=== PATIENT | female | born 1950 | race Caucasian/White ===

== ENCOUNTER 2018-10-15 13:41 | Outpatient (CLI) | payer MEDICARE, SELFPAY ==
[2018-10-15 14:44] LABS: Anion Gap 12.1 mmol/L (3-11); BUN 17 mg/dL (7-18); CO2 22.9 mmol/L (21.0-32.0); CREATININE 0.95 mg/dL (0.55-1.02); Calcium 9.3 mg/dL (8.5-10.1); Chloride 105 mmol/L (98-107); Cholesterol 151 mg/dL (50-200); Glucose 142 mg/dL (70-100); HDL Cholesterol 51 mg/dL (40-60); LDL CHOLESTEROL 61 mg/dL (<100); Potassium 4.5 mmol/L (3.5-5.1); Sodium 140 mmol/L (136-145); Triglyceride 229 mg/dL (30-150)
== END 2018-10-15 14:01 ==
PROVIDERS: PCP Internal Medicine; Visit Provider Internal Medicine
DX: I10 Essential (primary) hypertension (principal); E78.00 Pure hypercholesterolemia, unspecified
CPT/HCPCS: 36415; 80048; 80061; 83721

== ENCOUNTER 2018-10-30 01:50 | Outpatient (CLI) | payer MEDICARE, SELFPAY ==
--- NOTE | 2018-10-30 12:40 | DIABASSESS_ITS ---
DESCRIPTION: Sun Casas presents for Medical Nutrition Therapy for diabetes and prevention of progression of diabetes. Sun is confused about her diagnosis especially since she has just worked hard to lose weight. Sun states she has lost 35 pounds over the past year by decreasing portions and eating better. She has oatmeal and banana or CIB for breakfast, lean cuisine for lunch; chicken, sweet potato and green beans last evening for supper. She dirnks whole milk with meals. She snacks on string cheese. She notes allergy of raw fruit. Sun has spinal stenosis with pain she describes as high at times. She has participated with [employer] in the past and continues to do those exercises regularly. Acknowledges PTSD with nightmares which affect her ability to sleep and financial stressors as well. ASSESSMENT/INTERVENTION: Explained diagnostic criteria for diabetes. She does have one fasting blood sugar above 126; no A1c available. Reviewed diabetes food guide focused on carbohydrate distribution, label reading, total carbs and significance of 'added' sugar on label. Discussed food resources and she is interested in [employer]. Sun feels she does all the movement she needs to do with chair exercises as well as activities of daily living. Sun does not monitor her blood sugars at this time. Performed random blood sugar of 93 several hours after breakfast. A1c is explained and she will look for this lab result. Sun feels she has good support for her stressors in her PCP and she will begin counseling. Discussed impact of stress of blood sugar. Sun is engaged in the conversation and feels she can manage this diagnosis in a preventative way at this time. PLAN: Sun will: Limit carbohydrate to 30 grams per meal and look for added sugar Participate in [employer] Look for A1c test and diagnosis clarification
== END 2018-10-30 02:10 ==
PROVIDERS: PCP Internal Medicine; Visit Provider Dietitian, Registered
DX: E11.9 Type 2 diabetes mellitus without complications (principal); Z71.3 Dietary counseling and surveillance
CPT/HCPCS: 97802

== ENCOUNTER 2019-06-18 11:22 | Outpatient (CLI) | payer MEDICARE, SELFPAY ==
--- NOTE | 2019-06-18 11:00 | DI.RAD_ITS ---
EXAM: XR KNEE RT 3V AP,LAT,CHEKO INDICATION: Acute onset generalized knee pain, M25.569. COMPARISON: No exams were available for comparison TECHNIQUE: 2D digital imaging was performed. FINDINGS: No acute fracture or dislocation is present. The soft tissues are unremarkable. IMPRESSION: No acute abnormality.
== END 2019-06-18 11:42 ==
PROVIDERS: PCP Internal Medicine; Visit Provider Family Medicine
DX: M25.561 Pain in right knee (principal)
CPT/HCPCS: 73562

== ENCOUNTER 2019-06-30 08:27 | Outpatient (CLI) | payer MEDICARE, SELFPAY ==
--- NOTE | 2019-06-30 08:00 | DI.MRI_ITS ---
EXAM: MR LUMBAR SPINE WO CLINICAL HISTORY: acute right lumbar radiculopathy,M54.16. TECHNIQUE: Multiplanar multisequence MRI was performed. COMPARISON: MRI - LUMBAR SPINE WO CONTRAST from 12/24/2008 RENAL COLIC WO CONTRAST from 07/28/2014 FINDINGS: There is mild concentric disc bulging at T10-11, T11-12 and T12-L1. Mild disc bulging is seen ecce ntric toward the left at L1-2. There is no significant neural foraminal narrowing or central canal s tenosis. At L2-3, there is [id number] loss of disc height and mild concentric disc bulging. There is no significant central canal stenosis or neural foraminal narrowing. At L3-4, there is mild concentric disc bulging. There are mild facet degenerative changes and mild li gamentous hypertrophy causing mild bilateral neural foraminal narrowing. A laminectomy defect is seen at L4-5. There is mild, grade 1 spondylolisthesis at L4-5. There is mi ld loss of disc height and mild concentric disc bulging. There is severe bilateral neural foraminal narrowing but no significant central canal stenosis. At L5-S1, the disc shows normal height and hydration. There are facet degenerative changes and some ligamentous hypertrophy but no significant neural foraminal narrowing. There is mild central canal s tenosis. The conus medullaris appears normal. The aorta is normal in diameter. IMPRESSION: Severe bilateral neural foraminal narrowing at L4-5 secondary to spondylolisthesis and degenerative changes. Mild central canal stenosis at L5-S1.
== END 2019-06-30 08:47 ==
PROVIDERS: PCP Internal Medicine; Visit Provider Internal Medicine
DX: M54.16 Radiculopathy, lumbar region (principal); M51.17 Intervertebral disc disorders with radiculopathy, lumbosacral region; M43.17 Spondylolisthesis, lumbosacral region; M48.07 Spinal stenosis, lumbosacral region
CPT/HCPCS: 72148

== ENCOUNTER 2020-02-17 12:38 | Outpatient (REF) | payer MEDICARE, SELFPAY ==
[2020-02-17 19:28] LABS: *AMPHETAMINES SCREEN URINE Negative (Negative); *BARBITURATES SCREEN URINE Negative (Negative); *BENZODIAZEPINES SCREEN URINE Negative (Negative); Cannabinoids THC POSITIVE (Negative); Cocaine Screen,Urine Negative (Negative); METHADONE URINE SCREEN Negative (Negative); OPIATES URINE SCREEN POSITIVE (Negative)
[2020-02-17 19:31] LABS: Tricyclic Antidepressants POSITIVE (Negative)
[2020-02-24 10:12] LABS: Codeine Negative ng/mL (Cutoff: 25); Dihydrocodeine 4712 ng/mL (Cutoff: 25); Hydrocodone 17790 ng/mL (Cutoff: 25); Hydromorphone 1121 ng/mL (Cutoff: 25); Morphine Negative ng/mL (Cutoff: 25); Naloxone Negative ng/mL (Cutoff: 25); Norhydrocodone 13543 ng/mL (Cutoff: 25); Noroxycodone Negative ng/mL (Cutoff: 25); Noroxymorphone Negative ng/mL (Cutoff: 25); Opiates Interpretation Positive.
== END 2020-02-17 12:58 ==
LOC: LBO 12:38
PROVIDERS: PCP Internal Medicine; Visit Provider Internal Medicine
DX: G89.29 Other chronic pain (principal); Z79.891 Long term (current) use of opiate analgesic
CPT/HCPCS: 80307; 80361

== ENCOUNTER 2020-05-21 15:44 | Emergency (ER) | payer MEDICARE, SELFPAY ==
[2020-05-21 15:46] VITALS: BP 115/59; PULSE 63; RESP 17; TEMP 36.7; O2SAT 95
--- NOTE | 2020-05-21 15:58 | ED.GENADUL_ITS ---
Discharge Plan Disposition Patient Disposition: [facility] [place] Condition: Serious Discharge Details Clinical Impression: Bilateral leg weakness Primary Care Provider: Sully Cosme ED Provider: Veronica Robison [place] Meds and New Rx's Prescriptions: No Action hydrocodone-acetaminophen 5-325 mg tablet See Rx Instructions PO .COMPLEX MDD 10mg Qty: 56 RF: 0 hydrocodone-acetaminophen 5-325 mg tablet See Rx Instructions PO .COMPLEX MDD 10mg Qty: 56 RF: 0 hydrocodone-acetaminophen 5-325 mg tablet See Rx Instructions PO .COMPLEX MDD 10mg Qty: 56 RF: 0 Shingrix (PF) 50 mcg/0.5 mL suspension for reconstitution 0.5 ml IM ONCE Qty: 1 RF: 1 metoprolol succinate 25 mg tablet extended release 24 hr 25 mg PO DAILY Qty: 90 RF: 1 zolpidem [Ambien] 10 MG tablet 0 mg PO hs as directed Qty: 30 RF: 3 lorazepam 0.5 mg tablet 0.5 mg PO BID PRNRF: 0 atorvastatin 40 mg tablet 40 mg PO DAILY Qty: 90 RF: 3 venlafaxine 150 mg capsule,extended release 24hr 150 mg PO DAILY RF: 0 venlafaxine [Effexor XR] 37.5 mg capsule,extended release 24hr 37.5 mg PO DAILY RF: 0 gabapentin 600 mg tablet 1,200 mg PO HS RF: 0 gabapentin 400 mg capsule 400 mg PO TID PRN (Reason: lumbar radiculopathy) Qty: 90 RF: 3 acetaminophen [Tylenol] 325 MG tablet 325 mg PO TID RF: 0 Discharge Data Discharge Date/Time-TO BE ENTERED AT DEPARTURE: 05/21/20 20:00 Medical Decision Making Patient is a 69-year-old female presenting today with chief complaint of weakness. She reports that she has chronic issues with her back, reports recent MRI, which typically manifests as pain in the lumbar spine and can radiate into her bilateral lower extremities. She reports the pain has progressively been improving recently. She did recently take herself off of gabapentin as the pain has improved. She states that today she took Tylenol and happened Vicodin this morning. She reports that typically she is able to perform exercises each day to help with her back pain but that today she noted himself to be more weak and fatigued. States that subsequently she fell multiple times. Describes her left leg giving out and describes both of her legs feeling like Jell-O. She reports that she fell but did not strike her head or injure herself elsewhere. Is able to crawl to her bed when she attempted to get up. She reports that she had weakness in her legs as well as her upper extremities to a lesser extent. She denies any recent illness. States that she did have a headache a few days ago but this quickly resolved with intake of food. No headache currently. Denies any chest pain. No shortness of breath. No change in bowel or bladder habits. Denies any incontinence. On exam, patient is resting comfortably, appears nontoxic and in no acute distress. She is able to lift her BLE but does have fasciculations when doing so and appears quite weak. Normal sharp dull testing the lower extremities. She has no saddle paresthesias. She has no Babinski reflex. Reflexes intact at the knee. She also appears systemically fatigued and is moving her upper extremities minimally. However, she does not report that these feel overly weak. When prompted, patient is able to move her BUE equally without notable weakness. She is reporting that she feels fatigued and has been napping more frequently than she typically does. She needs to urinate. Patient denies any recent illness but her difference in the reflexes in her feet to her knees does have a concern for potential Guyon Antonio?. Also considered worsening spinal stenosis. Reviewed MR dated 1 year ago. Also considered more of a systemic cause such as thyroid dysfunction, electrolyte abnormality. She does not have evidence or history to suggest abscess or acute bacterial infection. Patient attempt to stand to go to a bedside commode. Feet slipped out monitor her. Nursing staff was with her and she slowly went to the ground. She did not suffer any injuries. She is not endorsing any new pain. We will keep the patient in bed safe. Post void residual 90 cc. Labs reviewed without any significant abnormality. Performed rectal exam patient has no rectal tone, she is unable to bear down. Concern at this time for cauda equina. While initially she was denying any incontinence, she is now reporting about her stool falls out. She states that incontence of stool has been worsening with over the past few days Reached out to [facility], sounds that they are unable to accept secondary to beds. Th wes will check. I do not want to wait for transfer, will consult with [facility]. Spoke with neurosurgery who advised MRI. Consulted with ED provider who accepts the patient in transfer. Discussed plan with the patient. She has been to [facility] historically and is agreeable to this transfer. Patient is comfortable. She was givne her nightly pain medication, 1/2 vicodin and tyleonol HPI General Mode of arrival: EMS . Date/Time Provider Initiated Documentation: 05/21/20 15:58 . Limitations to Documentation: no limitations . Information obtained by: patient, EMS, RN notes reviewed and old records reviewed . History of Present Illness 69 year old F presents to the emergency department with the chief complaint of BLE weakness, described as moderate, Quality is described as aching (chronic backpain, no flair), and is localized to the left, right and lower extremity. Patient reports no radiation. Patient started experiencing this hour(s) (noticed weakness this AM) and it has been constant. Immobilization improves symptom(s), Movement worsens symptoms . Patient notes weakness (generalized, worse in BLE. Falling frequently associated with weakness); denies confusion, chest pain, cough, diaphoresis, fever/chills, loss of appetite, nausea/vomiting and shortness of breath. Patient did receive the following treatments prior to arrival, none Related Data Home Medications Medication Instructions Recorded Confirmed zolpidem [Ambien] 0 mg PO hs as directed #30 09/08/15 05/21/20 acetaminophen [Tylenol] 325 mg PO TID 11/05/15 05/21/20 varicella-zoster glycoE [id number] 0.5 ml IM ONCE #1 each 04/17/18 05/11/20 adj(PF) 50 mcg/0.5 mL IM susp, kit lorazepam 0.5 mg tablet 0.5 mg PO BID PRN tab 02/11/19 05/21/20 atorvastatin 40 mg tablet 40 mg PO DAILY #90 tab-cap 09/10/19 05/21/20 venlafaxine 150 mg 150 mg PO DAILY tab-cap 10/01/19 05/21/20 capsule,extended release 24 hr venlafaxine 37.5 mg 37.5 mg PO DAILY 10/01/19 05/21/20 capsule,extended release 24 hr gabapentin 600 mg tablet 1,200 mg PO HS 02/17/20 05/21/20 metoprolol succinate 25 mg 25 mg PO DAILY #90 tab 02/17/20 05/21/20 tablet,extended release 24 hr gabapentin 400 mg capsule 400 mg PO TID PRN #90 cap 05/05/20 05/21/20 hydrocodone 5 mg-acetaminophen 325 See Rx Instructions PO .COMPLEX 05/11/20 05/11/20 mg tablet #56 tab MDD 10mg hydrocodone 5 mg-acetaminophen 325 See Rx Instructions PO .COMPLEX 05/11/20 05/11/20 mg tablet #56 tab MDD 10mg hydrocodone 5 mg-acetaminophen 325 See Rx Instructions PO .COMPLEX 05/11/20 05/21/20 mg tablet #56 tab MDD 10mg Previous Rx's Medication Instructions Recorded varicella-zoster glycoE vacc-AS01B 0.5 ml IM ONCE #1 each 04/17/18 adj(PF) 50 mcg/0.5 mL IM susp, kit atorvastatin 40 mg tablet 40 mg PO DAILY #90 tab-cap 09/10/19 metoprolol succinate 25 mg 25 mg PO DAILY #90 tab 02/17/20 tablet,extended release 24 hr gabapentin 400 mg capsule 400 mg PO TID PRN #90 cap 05/05/20 hydrocodone 5 mg-acetaminophen 325 See Rx Instructions PO .COMPLEX 05/11/20 mg tablet #56 tab MDD 10mg hydrocodone 5 mg-acetaminophen 325 See Rx Instructions PO .COMPLEX 05/11/20 mg tablet #56 tab MDD 10mg hydrocodone 5 mg-acetaminophen 325 See Rx Instructions PO .COMPLEX 05/11/20 mg tablet #56 tab MDD 10mg Allergies Allergy/AdvReac Type Severity Reaction Status Date / Time Penicillins Allergy Severe HIVES, Verified 05/21/20 15:57 CANNOT BREATH benzonatate Allergy Intermediate itchy Verified 05/21/20 15:57 hives head to toe,vomiting NSAIDS (Non-Steroidal AdvReac Severe GI DISTRESS Verified 05/21/20 15:57 Anti-Inflamma methadone AdvReac Unknown SEDATION Verified 05/21/20 15:57 ramelteon [From Rozerem] AdvReac Unknown activation,worse Verified 05/21/20 15:57 sleep tramadol AdvReac Unknown NAUSEA, Verified 05/21/20 15:57 VOMITING, DIARRHEA amitriptyline AdvReac insomnia, Verified 05/21/20 15:57 next day sedation cyproheptadine AdvReac Nightmares Verified 05/21/20 15:57 quetiapine [From Seroquel] AdvReac insomnia, Verified 05/21/20 15:57 poor efficacy Fresh Fruits Allergy Severe Swelling/Ed Uncoded 05/21/20 15:57 shyla General Stated Complaint: GenMedical ALONZO: 3 Review of Systems Constitutional Constitutional: Reports as per HPI, Denies chills, Denies fatigue, Denies fever(s), Reports frequent falls (fall x 4 today), Denies headache(s) and Reports weakness (BLE weakness) Eyes Eyes: Denies change in vision ENT Ears, Nose, Mouth, and Throat: Denies headache(s) and Denies neck pain Cardiovascular Cardiovascular: Denies chest pain, Denies dyspnea and Denies dyspnea on exertion Respiratory Respiratory: Denies cough, Denies dyspnea and Denies dyspnea on exertion Gastrointestinal Gastrointestinal: Denies abdominal pain, Denies change in bowel habits and Denies fecal incontinence Genitourinary Genitourinary: Reports as per HPI, Denies urinary incontinence and Denies urinary hesitancy Musculoskeletal Musculoskeletal: Reports as per HPI, Reports back pain (chronic, unchanged lower back pain), Reports muscle weakness, Denies neck pain, Denies numbness, Denies radiating pain into limb, Denies stiffness and Denies tingling Integumentary/Breasts Skin/Breast: Reports as per HPI and Denies rash Neurologic Neurologic: Reports as per HPI, Reports frequent falls (fall x 4 today), Denies headache(s), Denies localized weakness, Denies numbness, Denies radicular pain, Denies sensory deficit, Denies tingling, Denies paresthesias and Reports weakness (BLE weakness) Endocrine Endocrine: Denies fatigue [facility] Medical History Depressive disorder (11/03/13) Otalgia, unspecified (12/03/12) Surgical History Colonoscopy - IV Sedation (11/05/15) Dr Nice Status post lumbar laminectomy Family History Mother No problems noted. Social History Smoking/Tobacco Use Status: Former Tobacco Use Alcohol Intake: never Drug use: Never Substance use type: does not use Adopted: No Caregiver/Support person: No Foster care: No Household members: spouse Housing: house Number of Children: 3 Communication Needs: None current occupation: Unemployed Current gender identity: female What is your relationship status?: How often do you talk on the phone with friends or family?: three or more times per week Panel score (0-1 are the most socially isolated patients): 2 What type of physical activity do you participate in: none and other Details: stretches Seatbelt use: always Drive intox or ride w/intox tow driver: No Carbon monox detector in home: Yes Do you feel safe at home: Yes Do you feel safe in your relationship?: Yes Exam Const General: cooperative, healthy appearing, comfortable, no acute distress, well developed and well groomed Nutritional Appearance: well nourished and obese Orientation: alert, awake and oriented x3 Eyes General: appearance normal, both eyes and all related structures Neck Neck: normal visual inspection, full ROM, no lymphadenopathy and no meningeal signs Resp Effort & Inspection: normal respiratory effort and able to speak in complete sentences Auscultation: clear to auscultation bilaterally, no rales, no rhonchi and no wheezes Cardio Rate: regular rate Rhythm: regular rhythm Heart Sounds: S1 normal and S2 normal GI Inspection: normal to inspection Palpation: soft, no hepatosplenomegaly, not firm, no guarding, no pulsatile masses and nontender Percussion: normal to percussion Auscultation: normal bowel sounds Back/Spine/Pelvis Back: no CVA tenderness Cervical Spine: normal cervical lordosis, cervical ROM normal, No cervical muscular tenderness, No cervical spinal tenderness and No step off deformity Thoracic/Lumbar Spine: thoracic and lumbar spine normal to inspection, surgical scar(s) present (lumbar spine), thoraco-lumbar ROM normal, straight leg raise negative bilaterally (no pain with this but patient has weakness bilaterally), bend over test abnormal (unable to assess seconary to weakness in BLE, unable to stand patient), No paraspinal tenderness, No thoracic spinal tenderness and lumbar spinal tenderness (along surgical incision) Pelvis: no pain with anterior-posterior compression Sacroiliac joints: bilaterally nontender Skin General skin exam: no rashes or lesions noted Neuro General: patient alert, patient awake, patient oriented x3, gait abnormal (unable to bear weigth even with assistance), moves all extremities and CN's II- XI intact bilaterally Cranial Nerves: CN's II-XI intact bilaterally Cognition: normal cognition Speech: speech normal Gait: gait assisted (even with assitance, patient unable to bear weight) Motor: strength not 5/5 throughout (3/5 in BLE, normal in BUE), no pronator drift and muscle tone abnormal (with straight leg lifting, patient has shaking and difficulty at thigh) Sensory Exam: no sensory deficits noted (no saddle paresthesias) DTR's: Rt Patellar: 2+, Lt Patellar: 2+, Rt Ankle: 2+ and Lt Ankle: 2+ Plantar Reflexes: Equivocal: bilateral (no reaction bilaterally) Coordination: [id number] test normal and [id number] test normal (able to complete but clearly difficult and weak) Extrem General: normal to inspection, full ROM, capillary refill normal (2+ distal pulses BLE), no joint enlargement, no pedal edema, no calf tenderness and abnormal gait Psych Appearance: grossly normal and well kempt Mental Status: mental status grossly normal Speech and Movement: speech and movement normal Course Vital Signs Vital signs: Vital Signs Temperature 36.7 C 05/21/20 15:46 Pulse 63 05/21/20 15:46 Respiratory Rate 17 05/21/20 15:46 Blood Pressure 115/59 L 05/21/20 15:46 Pulse Oximetry 95 05/21/20 15:46 Temperature 36.7 C 05/21/20 15:46 Temperature Source Oral 05/21/20 15:46 Pulse 63 05/21/20 15:46 Respiratory Rate 17 05/21/20 15:46 Respiratory Effort 05/21/20 15:55 Blood Pressure 115/59 L 05/21/20 15:46 Blood Pressure Position Supine 05/21/20 15:46 Pulse Oximetry 95 05/21/20 15:46 Oxygen Delivery Method Room Air 05/21/20 15:46 Oxygen Flow Rate 0 05/21/20 15:46 Pain Level 3 05/21/20 15:46 Comment 05/21/20 15:46
--- NOTE | 2020-05-21 16:15 | RT.EKG_ITS ---
APPROVED REPORT Exam: Resting ECG Patient Location: E HR:59 bpm ECG Measurements Heart Rate 59 AXIS AK 164 P 21 QRSd 89 QRS 18 QT 434 T 64 QTc 429 Conclusion Sinus bradycardia...rate< 60 Low voltage, precordial leads...precordial leads <1.0mV I have reviewed and interpreted ECG and agree with software generated interpretation.
[2020-05-21 16:45] LABS: Abs Immature Grans 0.02 10^3/uL (0.0-0.06); Absolute Basophil Count 0.06 10^3/uL (0.0-0.2); Absolute Eosinophil Count 0.23 10^3/uL (0.0-0.7); Absolute Lymphocyte Count 5.09 10^3/uL (1.2-3.4); Absolute Monocyte Count 0.65 10^3/uL (0.1-0.8); Absolute Neutrophil Count 3.74 10^3/uL (1.2-6.7); Basophils % 0.6; Eosinophils % 2.3; HCT 42.6 % (36.0-46.0); HGB 13.8 g/dL (11.2-15.7); Immature Grans % 0.2; MCH 29.9 pg (27.0-33.0); MCHC 32.4 % (32.0-36.0); MCV 92.2 fL (80-95); MPV 8.8 fL (8.0-11.0); Monocytes % 6.6; Neutrophils % 38.3; Nucleated RBC 0 %; Platelet Count 302 10^3/uL (130-400); RBC 4.62 10^6/uL (3.93-5.22); RDW 13.8 % (11.7-14.6); RDW-SD 47.1 fL; WBC 9.79 10^3/uL (4.4-10.8)
[2020-05-21] MEDS: Lactated Ringers 1,000 ML 500 ML IV (17:05)
[2020-05-21 17:08] LABS: Creatine Kinase 184 U/L (26-192); ETHANOL BLOOD 3.1 mg/dL (<3); Magnesium 2.4 mg/dL (1.8-2.4); TSH 1.08 uIU/mL (0.36-3.74)
[2020-05-21 17:09] LABS: ALT 29 U/L (14-59); AST 24 U/L (15-37); Albumin 3.6 g/dL (3.4-5.0); Alkaline Phosphatase 88 U/L (46-116); Anion Gap 7.4 mmol/L (3-11); BUN 15 mg/dL (7-18); Bilirubin, Total 0.3 mg/dL (0.2-1.0); CO2 23.6 mmol/L (21.0-32.0); CREATININE 1.09 mg/dL (0.55-1.02); Calcium 8.8 mg/dL (8.5-10.1); Chloride 106 mmol/L (98-107); Estimated GFR 49.77 (mL/min/1.73m2); Glucose 112 mg/dL (74-106); Potassium 4.3 mmol/L (3.5-5.1); Sodium 137 mmol/L (136-145); Total Protein 6.8 g/dL (6.4-8.2)
[2020-05-21 17:11] LABS: Troponin I < 0.05 ng/mL (<0.06)
[2020-05-21 17:13] LABS: Bilirubin Negative (Negative); Blood Trace-intact (Negative); Clarity Clear (Clear); Glucose Negative (Negative); Ketones Negative (Negative); Leukocyte Esterase Negative (Negative); Nitrite Negative (Negative); Specific Gravity >= 1.030 (1.005-1.025); Urobilinogen 0.2 EU/dL (Up TO 0.2)
[2020-05-21 17:19] LABS: Diff Comment Agrees w/ Instrument; RBC Morphology Normal
[2020-05-21 17:20] LABS: C-Reactive Protein 0.05 mg/dL (0.0-0.3)
[2020-05-21 17:23] LABS: Bacteria Negative HPF (Negative); C & S Indicated? No; Crystals Negative HPF (Negative); Epithelial Cells Many HPF (Negative); Mucus Negative (Negative); RBC 0-2 HPF (0-2); WBC 0-2 HPF (0-5)
[2020-05-21] MEDS: HYDROcodone 5/Acetaminophen 325 TAB PO (17:42)
[2020-05-21] MEDS: Acetaminophen 325 MG TAB PO (17:42)
[2020-05-21 17:49] LABS: ESR 9 mm/hr (0-30)
[2020-05-21 19:10] VITALS: BP 132/67; PULSE 70; RESP 20; O2SAT 96
[2020-05-21] MEDS: Acetaminophen 325 MG TAB (19:58)
--- NOTE | 2020-05-21 20:00 | NUR.NOTE ---
Nursing Note: Patient A and O x 3, moves all extremities, pedal pushes strong, is able to lift her legs about 1 in. off the bed briefly, sensation intact. pedal pulses palpable, no edema of her lower extremities. Patient assisted to use bedpan, she is able to bend her knees up and use her legs to lift up her bottom. States it has been about 2 weeks she has intermittently lost any control over her bowels. Lungs clear, does have back pain which she states is chronic.
== END 2020-05-21 20:00 ==
LOC: ER 16:57
PROVIDERS: Emergency Provider Physician Assistant; PCP Internal Medicine
DX: G83.11 Monoplegia of lower limb affecting right dominant side (principal); G83.14 Monoplegia of lower limb affecting left nondominant side; M48.061 Spinal stenosis, lumbar region without neurogenic claudication; R53.83 Other fatigue; R25.3 Fasciculation; I10 Essential (primary) hypertension; E11.9 Type 2 diabetes mellitus without complications; R15.9 Full incontinence of feces
CPT/HCPCS: 36415; 80053; 82550; 85652; 93005; 96360; 99285; 80320; 81003; 81015; 83735; 84443; 84484; 85025; 86140; 93010

== ENCOUNTER 2020-12-16 20:31 | Emergency (ER) | payer MEDICARE, SELFPAY ==
--- NOTE | 2020-12-16 20:30 | RT.EKG_ITS ---
APPROVED REPORT Exam: Resting ECG Reason for Exam: chest pain Patient Location: E HR:72 bpm ECG Measurements Heart Rate 72 AXIS NV 158 P 49 QRSd 86 QRS 33 QT 386 T 44 QTc 423 Conclusion Sinus rhythm...normal P axis, V-rate 60- 99
[2020-12-16 20:32] VITALS: BP 171/80; PULSE 77; RESP 18; TEMP 36.6; O2SAT 97
--- NOTE | 2020-12-16 20:50 | ED.GENADUL_ITS ---
Discharge Plan Disposition Patient Disposition: HOME Condition: Improving Discharge Details Clinical Impression: Chest pain, Anxiety Primary Care Provider: Sully Cosme ED Provider: Caroline Trinidad Home Meds and New Rx's Prescriptions: Continued gabapentin 400 mg capsule 400 mg PO TID PRN (Reason: lumbar radiculopathy) Qty: 90 RF: 0 zolpidem [Ambien] 10 MG tablet 0 mg PO hs as directed Qty: 30 RF: 3 lorazepam 0.5 mg tablet 0.5 mg PO BID PRNRF: 0 venlafaxine 150 mg capsule,extended release 24hr 150 mg PO DAILY RF: 0 venlafaxine [Effexor XR] 37.5 mg capsule,extended release 24hr 37.5 mg PO DAILY RF: 0 gabapentin 600 mg tablet 1,200 mg PO HS RF: 0 mometasone 0.1 % cream 1 applic topical DAILY PRN (Reason: skin irritation) Qty: 15 RF: 1 metoprolol succinate 25 mg tablet extended release 24 hr 25 mg PO DAILY Qty: 90 RF: 1 atorvastatin 40 mg tablet 40 mg PO DAILY Qty: 90 RF: 3 Discharge Instructions Instructions: Chest Pain (ED), Anxiety (ED) Additional Instructions: Follow up with primary care provider in 3-5 days. Return to ED sooner if any worsening or concerns. Increase oral fluids. Please return to the ED for any worsening chest pain, shortness of breath or any concerns. Referrals: Sully Cosme MD [Primary Care Provider] - Medical Decision Making 70-year-old female presents to the ER via EMS with chief complaint of left- sided chest pain which began approximately 45 minutes prior to arrival which radiates down her left arm associated with some anxiety. She reports that it began after a stressful situation with her she describes it as pressure currently anterior 3 out of 10 upon initial examination. She denies any fever chills no vomiting or diarrhea. She does report she did feel little bit nauseated in the ambulance prior to arrival. She is tearful upon initial exam. She does have a history of anxiety states that she did take a 1 mg lorazepam at 10:00 this morning. She does not take aspirin daily due to GI upset. She has a past medical history of type 2 diabetes, depression, hypercholesterolemia, hypertension. Cardiac work-up ordered including serial troponins, EKG, 24 mg chewable aspirin and 0.5 mg lorazepam Initial work-up is within normal limits troponin less than 0.05, chest x-ray is all within normal limits. 2155: Patient reevaluation no continued chest pain patient states that she has no chest pain now whatsoever. She is sitting up on the side of the bed is requesting to go home. Discussed waiting for the serial troponin which is due around 23:00 patient is requesting to go home and does not wish to wait for the second troponin. At this time I do feel it is reasonable to discharge patient with instructions to follow-up with PCP and discussed return instructions if chest pain returns. At this time do feel that clinical presentation is more consistent with anxiety versus cardiac disease. HPI General Mode of arrival: EMS . Date/Time Provider Initiated Documentation: 12/16/20 20:34 . Limitations to Documentation: no limitations . Information obtained by: patient, EMS and RN notes reviewed . HPI Narrative: 70-year-old female presents to the ER via EMS with chief complaint of left-sided chest pain which began approximately 45 minutes prior to arrival which radiates down her left arm associated with some anxiety. She reports that it began after a stressful situation with her she describes it as pressure currently anterior 3 out of 10 upon initial examination. She denies any fever chills no vomiting or diarrhea. She does report she did feel little bit nauseated in the ambulance prior to arrival. She is tearful upon initial exam. She does have a history of anxiety states that she did take a 1 mg lorazepam at 10:00 this morning. She does not take aspirin daily due to GI upset. She has a past medical history of type 2 diabetes, depression, hypercholesterolemia, hypertension. Related Data Home Medications Medication Instructions Recorded Confirmed zolpidem [Ambien] 0 mg PO hs as directed #30 09/08/15 12/16/20 lorazepam 0.5 mg tablet 0.5 mg PO BID PRN tab 02/11/19 12/16/20 venlafaxine 150 mg 150 mg PO DAILY tab-cap 10/01/19 12/16/20 capsule,extended release 24 hr venlafaxine 37.5 mg 37.5 mg PO DAILY 10/01/19 12/16/20 capsule,extended release 24 hr gabapentin 600 mg tablet 1,200 mg PO HS 02/17/20 12/16/20 mometasone 0.1 % topical cream 1 applic TOPICAL DAILY PRN #15 g 08/04/20 12/16/20 metoprolol succinate 25 mg 25 mg PO DAILY #90 tab 08/25/20 12/16/20 tablet,extended release 24 hr atorvastatin 40 mg tablet 40 mg PO DAILY #90 tab-cap 08/27/20 12/16/20 gabapentin 400 mg capsule 400 mg PO TID PRN #90 cap 12/07/20 12/16/20 Previous Rx's Medication Instructions Recorded mometasone 0.1 % topical cream 1 applic TOPICAL DAILY PRN #15 g 08/04/20 metoprolol succinate 25 mg 25 mg PO DAILY #90 tab 08/25/20 tablet,extended release 24 hr atorvastatin 40 mg tablet 40 mg PO DAILY #90 tab-cap 08/27/20 gabapentin 400 mg capsule 400 mg PO TID PRN #90 cap 12/07/20 Allergies Allergy/AdvReac Type Severity Reaction Status Date / Time Penicillins Allergy Severe HIVES, Verified 12/16/20 20:39 CANNOT BREATH benzonatate Allergy Intermediate itchy Verified 12/16/20 20:39 hives head to toe,vomiting NSAIDS (Non-Steroidal AdvReac Severe GI DISTRESS Verified 12/16/20 20:39 Anti-Inflamma methadone AdvReac Unknown SEDATION Verified 12/16/20 20:39 ramelteon [From Rozerem] AdvReac Unknown activation,worse Verified 12/16/20 20:39 sleep tramadol AdvReac Unknown NAUSEA, Verified 12/16/20 20:39 VOMITING, DIARRHEA amitriptyline AdvReac insomnia, Verified 12/16/20 20:39 next day sedation cyproheptadine AdvReac Nightmares Verified 12/16/20 20:39 quetiapine [From Seroquel] AdvReac insomnia, Verified 12/16/20 20:39 poor efficacy Fresh Fruits Allergy Severe Swelling/Ed Uncoded 12/16/20 20:39 shyla General Stated Complaint: Chest Pain ALONZO: 2 Review of Systems Narrative: Constitutional: Negative for weight loss, alert and oriented, well groomed, normal body habitus, appears comfortable. HEENT: Denies trauma, headaches, blurry vision, nasal discharge, sore throat, trouble swallowing. Chest: Denies palpitations, irregular rhythm. Positive left-sided chest pain that radiates under her left arm. Respiratory: Denies Shortness of breath, cough, hemoptysis. GI: Denies abdominal pain, nausea, vomiting, diarrhea, constipation. : Denies dysuria, hematuria, flank pain, rectal bleeding. Neuro: Denies dizziness, blurry vision, weakness, syncope, headache or facial numbness. Hematologic: Denies easy bruising, intolerance to heat or cold, hair loss. [facility] Medical History Acetaminophen overdose Depressive disorder (11/03/13) Drug overdose, multiple drugs Otalgia, unspecified (12/03/12) Suicidal deliberate poisoning Surgical History Colonoscopy - IV Sedation (11/05/15) Dr Nice Status post lumbar laminectomy Family History Mother No problems noted. Social History Smoking/Tobacco Use Status: Former Tobacco Use Smoking risk assessment performed?: Yes Alcohol Intake: never Drug use: Never Substance use type: does not use Adopted: No Caregiver/Support person: No Foster care: No Household members: spouse Housing: house Number of Children: 3 Communication Needs: None current occupation: Unemployed Current gender identity: female What is your relationship status?: How often do you talk on the phone with friends or family?: three or more times per week Panel score (0-1 are the most socially isolated patients): 2 What type of physical activity do you participate in: none and other Details: stretches Seatbelt use: always Drive intox 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 Appears stated age. Overweight body habitus. Head: Normocephalic, no trauma. Eyes: Pupils PERRLA, Red reflex noted, EOM's intact. Eyelids symmetrical without lesions, discharge, or swelling. ENT: Bilateral TM's WNL, External ear normal to inspection, no mastoid TTP, swelling, or erythema, Nasal turbinates WNL, no nasal discharge. Normal dentition, Posterior pharynx WNL, no exudate. Chest: RRR, Normal S1, S2, distal pulses intact. Resp: Lungs clear to auscultation bilaterally, no wheezes, rales, or rhonchi. Abdomen: Soft, nontender to palpation all 4 quadrants. Musculoskeletal: 5/5 strength to all four extremities. Skin: No suspicious rashes or lesions. Capillary refill less than 2 sec. Neurologic: Cranial nerves II-XII intact. Alert and oriented x 3. DTR's intact. Hematologic/Lymphatic: No ecchymosis, no lymphadenopathy. Course Vital Signs Vital signs: Vital Signs Temperature 36.6 C 12/16/20 20:32 Pulse 77 12/16/20 20:32 Respiratory Rate 18 12/16/20 20:32 Blood Pressure 171/80 H 12/16/20 20:32 Pulse Oximetry 97 12/16/20 20:32 Temperature 36.6 C 12/16/20 20:32 Temperature Source Temporal Artery Scan 12/16/20 20:32 Pulse 77 12/16/20 20:32 Respiratory Rate 18 12/16/20 20:32 Respiratory Effort 12/16/20 20:36 Respiratory Pattern Normal 12/16/20 20:36 Blood Pressure 171/80 H 12/16/20 20:32 Blood Pressure Position Sitting 12/16/20 20:32 Pulse Oximetry 97 12/16/20 20:32 Oxygen Delivery Method Room Air 12/16/20 20:32 Oxygen Flow Rate 0 12/16/20 20:32 Pain Level 6 12/16/20 20:32
[2020-12-16] MEDS: LORazepam 2 MG/ML VIAL 0.5 MG IVP (21:06)
[2020-12-16 21:09] LABS: Abs Immature Grans 0.03 10^3/uL (0.0-0.06); HGB 14.7 g/dL (11.2-15.7); MCH 29.9 pg (27.0-33.0); MCHC 32.7 % (32.0-36.0); MCV 91.6 fL (80-95); MPV 8.4 fL (8.0-11.0); Nucleated RBC 0 %; Platelet Count 371 10^3/uL (130-400); RBC 4.91 10^6/uL (3.93-5.22); RDW 13.8 % (11.7-14.6); WBC 11.31 10^3/uL (4.4-10.8)
--- NOTE | 2020-12-16 21:15 | DI.RAD_ITS ---
Exam(s) XR CHEST 2V PA LATERAL EXAM: XR CHEST 2V PA LATERAL CLINICAL HISTORY: Chest pain TECHNIQUE: 2D digital imaging was performed. COMPARISON: CR CHEST 2 VIEWS PA,LAT from 04/24/2016 FINDINGS: MEDIASTINUM: Normal. HEART: Normal. PULMONARY VASCULATURE: Normal. LUNGS: Clear. PLEURAL SPACE: No pleural effusion or pneumothorax. BONE:Degenerative disc changes in the spine. OTHER FINDINGS:Normal. IMPRESSION: No acute pulmonary findings. DATA REPOSITORY: RADIATION DOSE DELIVERED:
[2020-12-16] MEDS: Normal Saline 500 ML IV (21:20)
[2020-12-16 21:28] LABS: Absolute Eosinophil Count 0.34 10^3/uL (0.0-0.7); Absolute Monocyte Count 0.68 10^3/uL (0.1-0.8); Absolute Neutrophil Count 5.09 10^3/uL (1.2-6.7); Atypical Lymphocytes % 4
[2020-12-16 21:29] LABS: Diff Comment Manual Differential
[2020-12-16 21:30] LABS: ALT 29 U/L (14-59); AST 14 U/L (15-37); Albumin 3.7 g/dL (3.4-5.0); Alkaline Phosphatase 88 U/L (46-116); BUN 18 mg/dL (7-18); Bilirubin, Total 0.3 mg/dL (0.2-1.0); CREATININE 1.1 mg/dL (0.55-1.02); Calcium 9.5 mg/dL (8.5-10.1); Chloride 106 mmol/L (98-107); Glucose 92 mg/dL (74-106); Magnesium 2.2 mg/dL (1.8-2.4); Sodium 143 mmol/L (136-145); Total Protein 7.5 g/dL (6.4-8.2)
[2020-12-16 21:31] LABS: Troponin I < 0.05 ng/mL (<0.06)
--- NOTE | 2020-12-16 21:50 | DI.VRAD_ITS ---
PROCEDURE INFORMATION: Exam: XR Chest Exam date and time: 12/16/2020 8:57 PM Age: 70 years old Clinical indication: Pain; Other: Not specified TECHNIQUE: Imaging protocol: XR of the chest. Views: 2 views. Total images: 2 COMPARISON: CR CHEST 2 VIEWS PA,LAT 04/24/2016 9:05 PM FINDINGS: Lungs: Lungs are clear without consolidation. No vascular congestion. Pulmonary estuardo: Unremarkable contours. Pleural spaces: No pleural effusion. No pneumothorax. Heart/Mediastinum: Mediastinal contours notable a tortuous aorta. Bones/joints: Unremarkable. Intraperitoneal space: Visualized upper abdomen is unremarkable. IMPRESSION: No acute findings. Dictated and Authenticated by: Paras Lobo MD. Ordering:PIERRE Velazquez MD
[2020-12-16 22:00] VITALS: BP 140/20; PULSE 71; RESP 17; TEMP 36.8; O2SAT 97
[2020-12-16 22:23] VITALS: BP 154/92; PULSE 77; RESP 16; TEMP 36.7; O2SAT 97
== END 2020-12-16 22:30 | disposition home or self-care (01) ==
LOC: ER 22:20
PROVIDERS: Emergency Provider Registered Nurse Emergency; PCP Internal Medicine
DX: R07.9 Chest pain, unspecified (principal); F41.9 Anxiety disorder, unspecified
CPT/HCPCS: 80053; 93005; 96374; 99284; 71046; 83735; 84484; 85025; 93010; 99283; J2060

== ENCOUNTER 2021-02-06 11:46 | Emergency (ER) | payer MEDICARE, SELFPAY ==
[2021-02-06 11:50] VITALS: BP 151/87; PULSE 94; TEMP 36.1; O2SAT 98
--- NOTE | 2021-02-06 12:08 | W.ED.GENAD ---
Discharge Plan Disposition Patient Disposition: HOME Condition: Improving Discharge Details Clinical Impression: Renal calculus, left Primary Care Provider: Sully Cosme ED Provider: Paras Nichols Home Meds and New Rx's Prescriptions: Continued hydrocodone-acetaminophen 5-325 mg tablet See Rx Instructions PO .COMPLEX MDD 10mg Qty: 56 RF: 0 venlafaxine 150 mg capsule,extended release 24hr 150 mg PO DAILY RF: 0 venlafaxine [Effexor XR] 37.5 mg capsule,extended release 24hr 37.5 mg PO DAILY RF: 0 gabapentin 600 mg tablet 1,200 mg PO HS RF: 0 mometasone 0.1 % cream 1 applic topical DAILY PRN (Reason: skin irritation) Qty: 15 RF: 1 metoprolol succinate 25 mg tablet extended release 24 hr 25 mg PO DAILY Qty: 90 RF: 1 atorvastatin 40 mg tablet 40 mg PO DAILY Qty: 90 RF: 3 gabapentin 400 mg capsule 400 mg PO TID PRN (Reason: lumbar radiculopathy) Qty: 90 RF: 0 acetaminophen 325 mg Tablet 975 mg PO PRN PRNRF: 0 No Action zolpidem [Ambien] 10 MG tablet 0 mg PO hs as directed Qty: 30 RF: 3 lorazepam 0.5 mg tablet 0.5 mg PO BID PRNRF: 0 cyclobenzaprine 5 mg tablet 5 mg PO DAILY PRN (Reason: muscle spasm) Qty: 10 RF: 0 Discharge Instructions Instructions: Kidney Stones (ED) Additional Instructions: Please strain your urine in an attempt to retrieve small kidney stone. May use the provided hydrocodone for breakthrough pain 1 to 2 tablets additionally per day. Return if you have a fever, worsening pain, or any other acute concerns. We will ask our care management team to help arrange follow-up for you in urology clinic. Medical Decision Making 70-year-old female presents from home complaining of 10 to 14 days of right flank pain, severe over the past 2 days. Associate with nausea 1 episode of emesis. Did not note a fever. She arrives to ER afebrile, in some distress, pressure 151/87. She is tender in the right flank and right lower quadrant of the abdomen. IV access established, laboratory ordered, patient given fluids, antiemetic, parenteral analgesia. Patient referred for CT imaging. CT reveals left 2 x 4 mm proximal ureteral calculus. Also note of 3 mm pulmonary nodule. Urinalysis notable for hematuria and calcium oxalate. Does not appear to have UTI. Patient's pain is improving. Discussed with her findings on imaging. She will strain her urine at home. Will offer a small number of additional hydrocodone on top of her usual regimen for breakthrough pain. We will ask neonatal intensive care unit nurse to arrange follow-up in urology clinic. HPI General Mode of arrival: ambulatory. Date/Time Provider Initiated Documentation: 02/06/21 11:47. Limitations to Documentation: no limitations. Information obtained by: patient. History of Present Illness 70 year old F presents to the emergency department with the chief complaint of Right flank pain worse today, described as moderate, and is localized to the back and right. Patient abdomen. Patient started experiencing this day(s) and it has been intermittent. No relieving factors improve symptom(s), No exacerbating factors reported . Patient notes loss of appetite and nausea/vomiting; denies fever/chills. Patient did receive the following treatments prior to arrival, other (Tylenol) Related Data Home Medications Medication Instructions Recorded Confirmed zolpidem [Ambien] 0 mg PO hs as directed #30 09/08/15 02/06/21 venlafaxine 150 mg 150 mg PO DAILY tab-cap 10/01/19 02/06/21 capsule,extended release 24 hr venlafaxine 37.5 mg 37.5 mg PO DAILY 10/01/19 02/06/21 capsule,extended release 24 hr gabapentin 600 mg tablet 1,200 mg PO HS 02/17/20 02/06/21 mometasone 0.1 % topical cream 1 applic TOPICAL DAILY PRN #15 g 08/04/20 02/06/21 metoprolol succinate 25 mg 25 mg PO DAILY #90 tab 08/25/20 02/06/21 tablet,extended release 24 hr atorvastatin 40 mg tablet 40 mg PO DAILY #90 tab-cap 08/27/20 02/06/21 gabapentin 400 mg capsule 400 mg PO TID PRN #90 cap 01/11/21 02/06/21 hydrocodone 5 mg-acetaminophen 325 See Rx Instructions PO .COMPLEX 01/18/21 02/06/21 mg tablet #56 tab MDD 10mg lorazepam 0.5 mg tablet 0.5 mg PO BID PRN tab 01/18/21 02/06/21 cyclobenzaprine 5 mg tablet 5 mg PO DAILY PRN #10 tab 01/26/21 02/06/21 acetaminophen 975 mg PO PRN PRN 02/06/21 02/06/21 Previous Rx's Medication Instructions Recorded mometasone 0.1 % topical cream 1 applic TOPICAL DAILY PRN #15 g 08/04/20 metoprolol succinate 25 mg 25 mg PO DAILY #90 tab 08/25/20 tablet,extended release 24 hr atorvastatin 40 mg tablet 40 mg PO DAILY #90 tab-cap 08/27/20 gabapentin 400 mg capsule 400 mg PO TID PRN #90 cap 01/11/21 hydrocodone 5 mg-acetaminophen 325 See Rx Instructions PO .COMPLEX 01/18/21 mg tablet #56 tab MDD 10mg cyclobenzaprine 5 mg tablet 5 mg PO DAILY PRN #10 tab 01/26/21 Allergies Allergy/AdvReac Type Severity Reaction Status Date / Time Penicillins Allergy Severe HIVES, Verified 02/06/21 11:55 CANNOT BREATH benzonatate Allergy Intermediate itchy Verified 02/06/21 11:55 hives head to toe,vomiting NSAIDS (Non-Steroidal AdvReac Severe GI DISTRESS Verified 02/06/21 11:55 Anti-Inflamma methadone AdvReac Unknown SEDATION Verified 02/06/21 11:55 ramelteon [From Rozerem] AdvReac Unknown activation,worse Verified 02/06/21 11:55 sleep tramadol AdvReac Unknown NAUSEA, Verified 02/06/21 11:55 VOMITING, DIARRHEA amitriptyline AdvReac insomnia, Verified 02/06/21 11:55 next day sedation cyproheptadine AdvReac Nightmares Verified 02/06/21 11:55 quetiapine [From Seroquel] AdvReac insomnia, Verified 02/06/21 11:55 poor efficacy Fresh Fruits Allergy Severe Swelling/Ed Uncoded 02/06/21 11:55 shyla General Stated Complaint: FlankPain ALONZO: 3 Review of Systems Narrative: No fever. Nauseated with 1 episode of emesis. No change to stool. 6 systems reviewed and otherwise negative [facility] Medical History Acetaminophen overdose Depressive disorder (11/03/13) Drug overdose, multiple drugs Otalgia, unspecified (12/03/12) Suicidal deliberate poisoning Surgical History Colonoscopy - IV Sedation (11/05/15) Dr Nice Status post lumbar laminectomy Family History Mother No problems noted. Social History Smoking/Tobacco Use Status: Former Tobacco Use Smoking risk assessment performed?: Yes Alcohol Intake: never Drug use: Never Substance use type: does not use Adopted: No Caregiver/Support person: No Foster care: No Household members: spouse Housing: house Number of Children: 3 Communication Needs: None current occupation: Unemployed Current gender identity: female What is your relationship status?: How often do you talk on the phone with friends or family?: three or more times per week Panel score (0-1 are the most socially isolated patients): 2 What type of physical activity do you participate in: none and other Details: stretches Seatbelt use: always Drive 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 Pleasant, well groomed, interactive. HEAD: Normocephalic, atraumatic ENT: Mucous membranes moist, oropharynx unremarkable, External ear exam unremarkable EYES: PERRL, EOMI NECK: Full ROM, no TED, no menigismus CHEST/RESP: Nontender, clear to auscultation bilateral, no wheeze/rhonchi/rales CARDIOVASCULAR: RRR, no murmur, rub carina. 2+ Rad pulse bilateral ABDOMEN: Soft, right flank and right lower quadrant tenderness to palpation without rebound, no mass. +Bowel sounds EXT: Full ROM, there is medial proximal peripatellar tenderness on the right. Right radial head tenderness. No pain with internal/external rotation of the femurs. Patient with narrow based gait. Neuro: Grossly normal neurologic exam, conversant, interactive. Psych: Speech fluent, thoughts congruent, affect normal Course Vital Signs Vital signs: Vital Signs Temperature 36.1 C L 02/06/21 11:50 Pulse 94 H 02/06/21 11:50 Blood Pressure 151/87 H 02/06/21 11:50 Pulse Oximetry 98 07/04/21 11:50 Temperature 36.1 C L 02/06/21 11:50 Temperature Source Temporal Artery Scan 02/06/21 11:50 Pulse 94 H 02/06/21 11:50 Blood Pressure 151/87 H 02/06/21 11:50 Blood Pressure Position Sitting 02/06/21 11:50 Pulse Oximetry 98 02/06/21 11:50 Oxygen Delivery Method Room Air 02/06/21 11:50 Oxygen Flow Rate 0 02/06/21 11:50 Pain Level 9 02/06/21 11:50
[2021-02-06] MEDS: Ondansetron 4 MG/2 ML VIAL IVP (12:17)
[2021-02-06] MEDS: Normal Saline 1,000 ML 1000 ML IV (12:17)
[2021-02-06] MEDS: HYDROmorphone 2 MG/ML VIAL 1 MG IVP (12:17)
--- NOTE | 2021-02-06 12:25 | DI.CT_ITS ---
Exam(s) CT RENAL COLIC WO EXAM: CT RENAL COLIC WO CLINICAL HISTORY: R flank pain. TECHNIQUE: Imaging Protocol: Axial computed tomography images with coronal and sagittal reformatted images were created and reviewed. CONTRAST MATERIAL: Noncontrast COMPARISON: CT RENAL COLIC WO CONTRAST from 07/28/2014 FINDINGS: ABDOMEN: Lung Bases: Atelectasis or scarring at the right lung base. Liver: Normal attenuation. No measurable mass. Gallbladder and biliary tract: No radiodense calculus or dilation. Pancreas: Normal density, no calcifications or inflammatory process. Spleen: Normal. Kidneys: Normal size, contour and axis. 2 by 4 millimeter stone in left proximal ureter, at the level L3. No significant hydronephrosis. No intrarenal or bladder calculi. No masses seen. Adrenal glands: No masses seen. Abdominal Aorta: Abdominal portion non-dilated. Atherosclerotic changes. PELVIS: Bladder: Nondistended., no gross wall thickening. Bowel: No obstruction or bowel wall thickening. Normal appendix. Mild diverticulosis. Peritoneal cavity: No ascites, collection or mesenteric inflammatory response. Bones: L4 pars defects and 1 L4-5 spondylolisthesis. Degenerative changes in the lower thoracic and lumbar spine. IMPRESSION: 2 x 4 millimeter stone in the upper left ureter not causing significant hydronephrosis. RADIATION DOSE DELIVERED: 923.66mGy.cm Total DLP DATA REPOSITORY: All CT scans at this facility are submitted to the National Radiology Data Registry (NRDR) Dose Index Registry (DIR) with the [employer] (ACR). RADIATION OPTIMIZATION: All CT scans at this facility use at least one of these dose optimization te chniques: automated exposure control; mA and/or kV adjustment per patient size (includes targeted exa ms where dose is matched to clinical indication); or iterative reconstruction.
[2021-02-06 12:54] VITALS: BP 126/61; PULSE 65; RESP 18; TEMP 36.8; O2SAT 95
[2021-02-06 13:01] LABS: Abs Immature Grans 0.02 10^3/uL (0.0-0.06); Absolute Basophil Count 0.05 10^3/uL (0.0-0.2); Absolute Eosinophil Count 0.19 10^3/uL (0.0-0.7); Absolute Lymphocyte Count 3.56 10^3/uL (1.2-3.4); Absolute Neutrophil Count 5.71 10^3/uL (1.2-6.7); Basophils % 0.5; Eosinophils % 1.9; HCT 50.4 % (36.0-46.0); HGB 16.7 g/dL (11.2-15.7); Immature Grans % 0.2; Lymphocytes % 34.8; MCH 30.2 pg (27.0-33.0); MCHC 33.1 % (32.0-36.0); MCV 91.1 fL (80-95); MPV 9.1 fL (8.0-11.0); Monocytes % 6.8; Neutrophils % 55.8; Nucleated RBC 0 %; Platelet Count 434 10^3/uL (130-400); RBC 5.53 10^6/uL (3.93-5.22); RDW 13.5 % (11.7-14.6); RDW-SD 46.1 fL; WBC 10.23 10^3/uL (4.4-10.8)
--- NOTE | 2021-02-06 13:08 | DI.VRAD_ITS ---
PROCEDURE INFORMATION: Exam: CT Abdomen And Pelvis Without Contrast Exam date and time: 02/06/2021 12:08 PM Age: 70 years old Clinical indication: Abdominal pain; Flank; Patient HX: Right flak pain. No HX of stones TECHNIQUE: Imaging protocol: Computed tomography of the abdomen and pelvis without contrast. Radiation optimization: All CT scans at this facility use at least one of these dose optimization techniques: automated exposure control; mA and/or kV adjustment per patient size (includes targeted exams where dose is matched to clinical indication); or iterative reconstruction. COMPARISON: CT RENAL COLIC WO CONTRAST 07/28/2014 4:11 AM FINDINGS: Lungs: Linear opacity at the right lung base, consistent with subsegmental atelectasis and/or scar. Noncalcified right lower lobe pulmonary nodule measuring 3 mm (image 1/series 2). Liver: Normal. No mass. Gallbladder and bile ducts: Normal. No calcified stones. No ductal dilation. Pancreas: Normal. No ductal dilation. Spleen: Normal. No splenomegaly. Adrenal glands: Normal. No mass. Kidneys and ureters: A new stone measuring 2 x 4 mm (image 63/series 2) is seen in the left proximal ureter. The stone is located at the level of the L3 superior vertebral endplate. There is no associated hydronephrosis.. No stones are seen in the kidneys or in right ureter. Stomach and bowel: Scattered colonic diverticula, without evidence of diverticulitis. Appendix: A normal appendix is seen. Intraperitoneal space: Unremarkable. No free air. No significant fluid collection. Vasculature: Unremarkable. No abdominal aortic aneurysm. Lymph nodes: Unremarkable. No enlarged lymph nodes. Urinary bladder: The urinary bladder is collapsed, limiting evaluation. Reproductive: Unremarkable as visualized. Bones/joints: Grade II developmental anterior spondylolisthesis of L4 on L5, measuring 8 mm. There are bilateral defects of the L4 pars interarticularis. No acute or suspicious osseous abnormalities. Moderate degenerative changes of the lower thoracic spine. Moderate disc space height loss at L2/L3. Moderate disc space height loss at L4/L5. Soft tissues: Mild diastasis of the rectus abdominus muscles. IMPRESSION: 1. A new stone measuring 2 x 4 mm (image 63/series 2) is seen in the left proximal ureter. There is no associated hydronephrosis. 2. No right renal or ureteral calculus. 3. Right lower lobe 3 mm pulmonary nodule.For patients at low risk (minimal or absent history of smoking and of other known risk factors), no routine follow-up is indicated. For patients at high risk (history of smoking or of other known risk factors), consider optional CT Chest at 12 months. (Reference: Tonya) REFERENCES: Tonya Hurst, et al. Guidelines for Management of Incidental Pulmonary Nodules Detected on CT Images: From the Fleischner Society 2017. Radiology. 2017;284(1):228-243. Dictated and Authenticated by: Darcie Choi MD. Ordering:ERLINDA Crain MD
[2021-02-06 13:14] LABS: ALT 30 U/L (14-59); AST 19 U/L (15-37); Albumin 4.1 g/dL (3.4-5.0); Alkaline Phosphatase 101 U/L (46-116); Anion Gap 11.9 mmol/L (3-11); BUN 12 mg/dL (7-18); Bilirubin, Total 0.4 mg/dL (0.2-1.0); CO2 24.1 mmol/L (21.0-32.0); CREATININE 1.1 mg/dL (0.55-1.02); Calcium 9.6 mg/dL (8.5-10.1); Chloride 106 mmol/L (98-107); Glucose 138 mg/dL (74-106); Sodium 142 mmol/L (136-145); Total Protein 8.1 g/dL (6.4-8.2)
[2021-02-06 13:44] LABS: Bilirubin Small (Negative); Blood Moderate (Negative); Clarity Sl Cloudy (Clear); Glucose Negative (Negative); Ketones Trace mg/dL (Negative); Leukocyte Esterase Negative (Negative); Nitrite Negative (Negative); Specific Gravity >= 1.030 (1.005-1.025); Urobilinogen 0.2 EU/dL (Up TO 0.2); pH 5.5 (5-8)
[2021-02-06 13:55] LABS: Bacteria Moderate HPF (Negative); Crystals Mod Calcium Oxalate HPF (Negative); Epithelial Cells Many HPF (Negative); WBC 0-2 HPF (0-5)
[2021-02-06 13:56] LABS: C & S Indicated? No/Sq. Contamination; Mucus Moderate (Negative)
[2021-02-06] MEDS: HYDROmorphone 2 MG/ML VIAL 0.5 MG IVP (13:56)
[2021-02-06 13:57] VITALS: BP 139/72; PULSE 67; RESP 16; TEMP 36.1; O2SAT 97
--- NOTE | 2021-02-06 14:27 | NUR.NOTE ---
referral to urology for kidney stone
[2021-02-06 14:49] VITALS: BP 133/80; PULSE 60; RESP 18; O2SAT 98
== END 2021-02-06 16:46 | disposition home or self-care (01) ==
PROVIDERS: Emergency Provider Emergency Medicine; PCP Internal Medicine
DX: N20.1 Calculus of ureter (principal); R11.2 Nausea with vomiting, unspecified
CPT/HCPCS: 36415; 80053; 96361; 96374; 96375; 96376; 99284; 74176; 81003; 81015; 85025; J2405

== ENCOUNTER 2021-02-07 12:16 | Emergency (ER) | payer MEDICARE, SELFPAY ==
[2021-02-07 12:21] VITALS: BP 197/96; PULSE 95; RESP 18; TEMP 36.5; O2SAT 97
--- NOTE | 2021-02-07 12:29 | ED.GENADUL_ITS ---
Discharge Plan Disposition Patient Disposition: HOME Condition: Improving Discharge Details Clinical Impression: Flank pain Primary Care Provider: Sully Cosme ED Provider: Caroline Trinidad Home Meds and New Rx's Prescriptions: Continued venlafaxine [Effexor XR] 37.5 mg capsule,extended release 24hr 37.5 mg PO DAILY RF: 0 gabapentin 600 mg tablet 1,200 mg PO HS RF: 0 metoprolol succinate 25 mg tablet extended release 24 hr 25 mg PO DAILY Qty: 90 RF: 1 atorvastatin 40 mg tablet 40 mg PO DAILY Qty: 90 RF: 3 gabapentin 400 mg capsule 400 mg PO TID PRN (Reason: lumbar radiculopathy) Qty: 90 RF: 0 acetaminophen 325 mg Tablet 975 mg PO PRN PRNRF: 0 No Action hydrocodone-acetaminophen 5-325 mg tablet See Rx Instructions PO .COMPLEX MDD 10mg Qty: 56 RF: 0 zolpidem [Ambien] 10 MG tablet 0 mg PO hs as directed Qty: 30 RF: 3 venlafaxine 150 mg capsule,extended release 24hr 150 mg PO DAILY RF: 0 mometasone 0.1 % cream 1 applic topical DAILY PRN (Reason: skin irritation) Qty: 15 RF: 1 lorazepam 0.5 mg tablet 0.5 mg PO BID PRNRF: 0 cyclobenzaprine 5 mg tablet 5 mg PO DAILY PRN (Reason: muscle spasm) Qty: 10 RF: 0 Discharge Instructions Instructions: Flank Pain (ED) Additional Instructions: At this time EKG, chest CT, lab work are largely unchanged. No evidence for urinary tract infection at this time. Take the pain medications as directed. Please call tomorrow to follow-up with urology if continued pain and problems. Follow up with primary care provider in 3-5 days. Return to ED sooner if any worsening or concerns. Increase oral fluids. Return for any vomiting, fever, chest pain, shortness of breath, inability to urinate Referrals: Savannah Doyle DNP [NURSE PRACTITIONER] - 5 days Sully Cosme MD [Primary Care Provider] - Discharge Data Discharge Date/Time-TO BE ENTERED AT DEPARTURE: 02/07/21 15:17 Medical Decision Making 70-year-old female presents to the ER for the second day in a row with chief complaint of right flank pain. Patient was diagnosed yesterday with a left 2 x 4 mm distal ureteral kidney stone. She was given hydrocodone for breakthrough pain and a strainer. Patient reports after being discharged from the facility here yesterday she went home and having symptoms of emesis and has been taking Tylenol and hydrocodone as directed. She reports pain has never really subsided increased to this morning. She is writhing around in bed states that it feels like someone stabbing her with a wooden stake. Denies any fever chills no further emesis. She does report having to push to urinate. On initial exam she does have some rhonchi in her right lower lobe. She does endorse smoking again recently. Denies any alcohol. No other associated symptoms. At this time work-up ordered including CBC, CMP, urinalysis, serial troponins, EKG and CT chest PE protocol to further evaluate lung nodule seen on CT abdomen pelvis yesterday. She does have some rhonchi noted on her exam and right CVA tenderness. Differential includes but not limited to CAD, pneumonia, lung CA, degenerative back pain, aortic aneurysm which is unlikely, not seen on CT yesterday, referred pain from left-sided kidney stone. Patient reevaluation 1435: She appears much more comfortable, she reports pain down to 5 from a 10 after Toradol. Discussed results of labs with patient which includes white blood cell count 10.90 hemoglobin 15.9 hematocrit 40.5, sodium potassium within normal limits, anion gap 12.1 creatinine 1.1 GFR is 49.1 glucose 111 initial troponin within normal limits, urinalysis shows no evidence of UTI small blood with 3-5 RBCs consistent with kidney stone. CT chest shows no pulmonary embolism no aortic aneurysm no aortic dissection. No airspace disease or consolidation noted. Only finding is low lung volumes with mosaic attenuation of the lung possible small airway disease. Discussed home care with patient and follow-up with urology patient verbalizes understanding. Is requesting additional nausea medication due to previous GI upset from NSAIDs another 15 mg of Toradol ordered plan is to discharge patient home with . Patient was much more comfortable discharge, alert oriented and ambulatory. Medical Records Medical records reviewed: Yes I reviewed the patient's medical records. Medical records narrative: CT result from 02/06/2021: FINDINGS: Lungs: Linear opacity at the right lung base, consistent with subsegmental atelectasis and/or scar. Noncalcified right lower lobe pulmonary nodule measuring 3 mm (image 1/series 2). Liver: Normal. No mass. Gallbladder and bile ducts: Normal. No calcified stones. No ductal dilation. Pancreas: Normal. No ductal dilation. Spleen: Normal. No splenomegaly. Adrenal glands: Normal. No mass. Kidneys and ureters: A new stone measuring 2 x 4 mm (image 63/series 2) is seen in the left proximal ureter. The stone is located at the level of the L3 superior vertebral endplate. There is no associated hydronephrosis.. No stones are seen in the kidneys or in right ureter. Stomach and bowel: Scattered colonic diverticula, without evidence of diverticulitis. Appendix: A normal appendix is seen. Intraperitoneal space: Unremarkable. No free air. No significant fluid collection. Vasculature: Unremarkable. No abdominal aortic aneurysm. Lymph nodes: Unremarkable. No enlarged lymph nodes. Urinary bladder: The urinary bladder is collapsed, limiting evaluation. Reproductive: Unremarkable as visualized. Bones/joints: Grade II developmental anterior spondylolisthesis of L4 on L5, measuring 8 mm. There are bilateral defects of the L4 pars interarticularis. No acute or suspicious osseous abnormalities. Moderate degenerative changes of the lower thoracic spine. Moderate disc space height loss at L2/L3. Moderate disc space height loss at L4/L5. Soft tissues: Mild diastasis of the rectus abdominus muscles. IMPRESSION: 1. A new stone measuring 2 x 4 mm (image 63/series 2) is seen in the left proximal ureter. There is no associated hydronephrosis. 2. No right renal or ureteral calculus. 3. Right lower lobe 3 mm pulmonary nodule.For patients at low risk (minimal or absent history of smoking and of other known risk factors), no routine follow-up is indicated. For patients at high risk (history of smoking or of other known risk factors), consider optional CT Chest at 12 months. (Reference: Tonya) HPI General Mode of arrival: ambulatory . Date/Time Provider Initiated Documentation: 02/07/21 12:21 . Limitations to Documentation: no limitations . Information obtained by: patient and old records reviewed . HPI Narrative: 70-year-old female presents to the ER for the second day in a row with chief complaint of right flank pain. Patient was diagnosed yesterday with a left 2 x 4 mm distal ureteral kidney stone. She was given hydrocodone for breakthrough pain and a strainer. Patient reports after being discharged from the facility here yesterday she went home and having symptoms of emesis and has been taking Tylenol and hydrocodone as directed. She reports pain has never really subsided increased to this morning. She is writhing around in bed states that it feels like someone stabbing her with a wooden stake. Denies any fever chills no further emesis. She does report having to push to urinate. On initial exam she does have some rhonchi in her right lower lobe. She does endorse smoking again recently. Denies any alcohol. No other associated symptoms. Related Data Home Medications Medication Instructions Recorded Confirmed zolpidem [Ambien] 0 mg PO hs as directed #30 09/08/15 02/07/21 venlafaxine 150 mg 150 mg PO DAILY tab-cap 10/01/19 02/07/21 capsule,extended release 24 hr venlafaxine 37.5 mg 37.5 mg PO DAILY 10/01/19 02/07/21 capsule,extended release 24 hr gabapentin 600 mg tablet 1,200 mg PO HS 02/17/20 02/07/21 mometasone 0.1 % topical cream 1 applic TOPICAL DAILY PRN #15 g 08/04/20 02/07/21 metoprolol succinate 25 mg 25 mg PO DAILY #90 tab 08/25/20 02/07/21 tablet,extended release 24 hr atorvastatin 40 mg tablet 40 mg PO DAILY #90 tab-cap 08/27/20 02/07/21 gabapentin 400 mg capsule 400 mg PO TID PRN #90 cap 01/11/21 02/07/21 hydrocodone 5 mg-acetaminophen 325 See Rx Instructions PO .COMPLEX 01/18/21 02/07/21 mg tablet #56 tab MDD 10mg lorazepam 0.5 mg tablet 0.5 mg PO BID PRN tab 01/18/21 02/07/21 cyclobenzaprine 5 mg tablet 5 mg PO DAILY PRN #10 tab 01/26/21 02/07/21 acetaminophen 975 mg PO PRN PRN 02/06/21 02/07/21 Previous Rx's Medication Instructions Recorded mometasone 0.1 % topical cream 1 applic TOPICAL DAILY PRN #15 g 08/04/20 metoprolol succinate 25 mg 25 mg PO DAILY #90 tab 08/25/20 tablet,extended release 24 hr atorvastatin 40 mg tablet 40 mg PO DAILY #90 tab-cap 08/27/20 gabapentin 400 mg capsule 400 mg PO TID PRN #90 cap 01/11/21 hydrocodone 5 mg-acetaminophen 325 See Rx Instructions PO .COMPLEX 01/18/21 mg tablet #56 tab MDD 10mg cyclobenzaprine 5 mg tablet 5 mg PO DAILY PRN #10 tab 01/26/21 Allergies Allergy/AdvReac Type Severity Reaction Status Date / Time Penicillins Allergy Severe HIVES, Verified 02/07/21 12:26 CANNOT BREATH benzonatate Allergy Intermediate itchy Verified 02/07/21 12:26 hives head to toe,vomiting NSAIDS (Non-Steroidal AdvReac Severe GI DISTRESS Verified 02/07/21 12:26 Anti-Inflamma methadone AdvReac Unknown SEDATION Verified 02/07/21 12:26 ramelteon [From Rozerem] AdvReac Unknown activation,worse Verified 02/07/21 12:26 sleep tramadol AdvReac Unknown NAUSEA, Verified 02/07/21 12:26 VOMITING, DIARRHEA amitriptyline AdvReac insomnia, Verified 02/07/21 12:26 next day sedation cyproheptadine AdvReac Nightmares Verified 02/07/21 12:26 quetiapine [From Seroquel] AdvReac insomnia, Verified 02/07/21 12:26 poor efficacy Fresh Fruits Allergy Severe Swelling/Ed Uncoded 02/07/21 12:26 shyla General Stated Complaint: FlankPain ALONZO: 3 Review of Systems Narrative: Constitutional: Negative for weight loss, alert and oriented, well groomed, overweight body habitus, appears comfortable. HEENT: Denies trauma, headaches, blurry vision, nasal discharge, sore throat, trouble swallowing. Chest: Denies chest pain, palpitations, irregular rhythm, hypertension. Respiratory: Denies Shortness of breath, cough, hemoptysis. GI: Denies , diarrhea, constipation. Positive abdominal pain nausea : Denies dysuria, hematuria, rectal bleeding. Right flank pain radiating to the right lower quadrant. Neuro: Denies dizziness, blurry vision, weakness, syncope, headache or facial numbness. Hematologic: Denies easy bruising, intolerance to heat or cold, hair loss. [facility] Medical History Acetaminophen overdose Depressive disorder (11/03/13) Drug overdose, multiple drugs Otalgia, unspecified (12/03/12) Suicidal deliberate poisoning Surgical History Colonoscopy - IV Sedation (11/05/15) Dr Nice Status post lumbar laminectomy Family History Mother No problems noted. Social History Smoking/Tobacco Use Status: Former Tobacco Use Smoking risk assessment performed?: Yes Alcohol Intake: never Drug use: Never Substance use type: does not use Adopted: No Caregiver/Support person: No Foster care: No Household members: spouse Housing: house Number of Children: 3 Communication Needs: None current occupation: Unemployed Current gender identity: female What is your relationship status?: How often do you talk on the phone with friends or family?: three or more times per week Panel score (0-1 are the most socially isolated patients): 2 What type of physical activity do you participate in: none and other Details: stretches Seatbelt use: always Drive 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 Appears stated age. Normal body habitus. Head: Normocephalic, no trauma. Eyes: Pupils PERRLA, Red reflex noted, EOM's intact. Eyelids symmetrical without lesions, discharge, or swelling. ENT: Bilateral TM's WNL, External ear normal to inspection, no mastoid TTP, swelling, or erythema, Nasal turbinates WNL, no nasal discharge. Normal dentition, Posterior pharynx WNL, no exudate. Chest: RRR, Normal S1, S2, distal pulses intact. Resp: Rhonchi noted to right lower lobe, clear to the left positive right CVA tenderness with palpation. Abdomen: Soft, nondistended minimal tender to palpation in the right lower quadrant. Musculoskeletal: Normal gait, 5/5 strength to all four extremities. Skin: No suspicious rashes or lesions. Capillary refill less than 2 sec. Neurologic: Cranial nerves II-XII intact. Alert and oriented x 3. DTR's intact. Hematologic/Lymphatic: No ecchymosis, no lymphadenopathy. Course Vital Signs Vital signs: Vital Signs Temperature 36.5 C 02/07/21 12:21 Pulse 95 H 02/07/21 12:21 Respiratory Rate 18 02/07/21 12:21 Blood Pressure 197/96 H 02/07/21 12:21 Pulse Oximetry 97 02/07/21 12:21 Temperature 36.5 C 02/07/21 12:21 Temperature Source Skin 02/07/21 12:21 Pulse 95 H 02/07/21 12:21 Respiratory Rate 18 02/07/21 12:21 Respiratory Effort Non-Labored 02/07/21 12:27 Blood Pressure 197/96 H 02/07/21 12:21 Blood Pressure Position Supine 02/07/21 12:21 Pulse Oximetry 97 02/07/21 12:21 Oxygen Delivery Method Room Air 02/07/21 12:21 Oxygen Flow Rate 0 02/07/21 12:21 Pain Level 10 02/07/21 12:21
--- NOTE | 2021-02-07 12:30 | DI.CT_ITS ---
Exam(s) CT CHEST PE CTA EXAM: CT CHEST PE CTA CLINICAL HISTORY: Right posterior Flank pain, R/O pNA, PE. TECHNIQUE: Imaging Protocol: Axial CT angiography was performed with multi-slice acquisition and mu lti-planar and/or 3D reconstructions. CONTRAST MATERIAL: Intravenous: Omnipaque 350 Contrast volume:100 ml COMPARISON: CT CT RENAL COLIC WO from 02/06/2021 FINDINGS: Pulmonary Arteries: No evidence of filling defect to suggest pulmonary emboli. Tracheobronchial tree: Patent where visualized. Mediastinum and [place]: No dominant adenopathy or fluid collection. Pulmonary parenchyma: Expiratory changes. No consolidation or dominant measurable mass. No senior infrastructure architect ural distortion. Pleura: No effusion or pneumothorax. Heart: The heart is mildly dilated. No coronary artery calcifications are seen. Aorta: Thoracic aorta non-dilated. Upper abdomen: Unremarkable. Bones: Degenerative changes. IMPRESSION: No evidence of pulmonary embolism or other acute abnormality.. RADIATION DOSE DELIVERED: 548.08mGy.cm Total DLP DATA REPOSITORY: All CT scans at this facility are submitted to the National Radiology Data Registry (NRDR) Dose Index Registry (DIR) with the [employer] (A[employer]). RADIATION OPTIMIZATION: All CT scans at this facility use at least one of these dose optimization te chniques: automated exposure control; mA and/or kV adjustment per patient size (includes targeted exa ms where dose is matched to clinical indication); or iterative reconstruction.
[2021-02-07] MEDS: HYDROmorphone 2 MG/ML VIAL 1 MG IVP (12:35)
[2021-02-07] MEDS: Ondansetron 4 MG/2 ML VIAL IVP (12:36)
[2021-02-07 12:37] LABS: Abs Immature Grans 0.02 10^3/uL (0.0-0.06); Absolute Basophil Count 0.07 10^3/uL (0.0-0.2); Absolute Monocyte Count 0.86 10^3/uL (0.1-0.8); Basophils % 0.6; Eosinophils % 1.8; HCT 48.5 % (36.0-46.0); HGB 15.9 g/dL (11.2-15.7); Immature Grans % 0.2; Lymphocytes % 46.1; MCH 29.9 pg (27.0-33.0); MCHC 32.8 % (32.0-36.0); MCV 91.3 fL (80-95); MPV 8.6 fL (8.0-11.0); Monocytes % 7.9; Neutrophils % 43.4; Nucleated RBC 0 %; Platelet Count 394 10^3/uL (130-400); RBC 5.31 10^6/uL (3.93-5.22); RDW 13.7 % (11.7-14.6); RDW-SD 46.3 fL
[2021-02-07] MEDS: Normal Saline 500 ML IV (12:39)
[2021-02-07 12:41] LABS: Absolute Lymphocyte Count 5.02 10^3/uL (1.2-3.4); Absolute Neutrophil Count 4.73 10^3/uL (1.2-6.7)
--- NOTE | 2021-02-07 12:45 | RT.EKG_ITS ---
APPROVED REPORT Exam: Resting ECG Reason for Exam: Right Falnk pain, Patient Location: E HR:64 bpm ECG Measurements Heart Rate 64 AXIS [place] 145 P 81 QRSd 103 QRS 43 QT 442 T 58 QTc 455 Conclusion Sinus rhythm...normal P axis, V-rate 60- 99. No STEMI. I have reviewed and interpreted ECG and agree with software generated interpretation.
[2021-02-07 12:49] LABS: Diff Comment Agrees w/ Instrument; RBC Morphology Normal
[2021-02-07] MEDS: Omnipaque 350 MG/ML 100 ML BTL IJ (13:05)
[2021-02-07 13:06] LABS: ALT 28 U/L (14-59); AST 21 U/L (15-37); Albumin 4.1 g/dL (3.4-5.0); Alkaline Phosphatase 98 U/L (46-116); Anion Gap 12.1 mmol/L (3-11); BUN 9 mg/dL (7-18); Bilirubin, Total 0.5 mg/dL (0.2-1.0); CO2 22.9 mmol/L (21.0-32.0); CREATININE 1.1 mg/dL (0.55-1.02); Calcium 9.3 mg/dL (8.5-10.1); Chloride 108 mmol/L (98-107); Glucose 111 mg/dL (74-106); Potassium 4.2 mmol/L (3.5-5.1); Sodium 143 mmol/L (136-145); Total Protein 7.8 g/dL (6.4-8.2)
[2021-02-07] MEDS: Normal Saline - Diluent 50 ML VIAL IV (13:06)
[2021-02-07 13:08] LABS: Troponin I < 0.05 ng/mL (<0.06)
[2021-02-07] MEDS: Ketorolac 15 MG/ML VIAL IVP ×2 (13:33→15:01)
--- NOTE | 2021-02-07 13:35 | NUR.NOTE ---
Nursing Note: Pt's was let in by registration without calling back for approval,after nursing had asked for no visitation. Asked to exit room to check on visitor policy, which he reluctantly did. Asked pt privately if his presence was ok, she stated she was ok and did in fact feel safe with him in the room. Pt aware that if raised his voice he would be asked to leave immediately. Rounded with registration staff to make sure to call for each and every visitor please, especially when they have been asked for no visitors. Provider aware.
--- NOTE | 2021-02-07 13:49 | DI.VRAD_ITS ---
PROCEDURE INFORMATION: Exam: CTA Chest With Contrast Exam date and time: 02/07/2021 12:45 PM Age: 70 years old Clinical indication: Other: RT post, flank pain TECHNIQUE: Imaging protocol: Computed tomographic angiography of the chest with contrast. 3D rendering (Not supervised by radiologist): MIP and/or 3D reconstructed images were created by the technologist. Contrast material: OMNIPAQUE 350; Contrast volume: 100 ml; Contrast route: IV; COMPARISON: CR XR CHEST 2V PA LATERAL 12/16/2020 9:12 PM FINDINGS: Pulmonary arteries: Normal. No pulmonary emboli. Aorta: Unremarkable. No aortic aneurysm. No aortic dissection. Lungs: Low lung volumes. No airspace disease or consolidation. Mosaic attenuation of the lung. Pleural spaces: Unremarkable. No pneumothorax. No pleural effusion. Heart: Unremarkable. No cardiomegaly. No pericardial effusion. Lymph nodes: Unremarkable. No enlarged lymph nodes. Bones/joints: Unremarkable. No acute fracture. Soft tissues: Unremarkable. IMPRESSION: 1. No pulmonary emboli. 2. Low lung volumes with mosaic attenuation of the lungs. Possible small airways disease. Dictated and Authenticated by: Rosas Dockery MD. Ordering:PIERRE Velazquez MD
[2021-02-07 14:21] LABS: Bilirubin Negative (Negative); Blood Small (Negative); Clarity Sl Cloudy (Clear); Glucose Negative (Negative); Ketones Negative (Negative); Leukocyte Esterase Negative (Negative); Nitrite Negative (Negative); Urobilinogen 0.2 EU/dL (Up TO 0.2); pH 5.5 (5-8)
[2021-02-07 14:29] LABS: Bacteria Few HPF (Negative); C & S Indicated? No/Sq. Contamination; Casts Negative LPF (Negative); Crystals Negative HPF (Negative); Epithelial Cells Many HPF (Negative); Mucus Negative (Negative)
[2021-02-07] MEDS: Ondansetron 4 MG/2 ML VIAL 2 MG IVP (15:01)
[2021-02-07 15:10] VITALS: BP 140/70; PULSE 70; RESP 18; O2SAT 98
== END 2021-02-07 15:17 | disposition home or self-care (01) ==
PROVIDERS: Emergency Provider Registered Nurse Emergency; PCP Internal Medicine
DX: R10.11 Right upper quadrant pain (principal); R39.16 Straining to void; R11.2 Nausea with vomiting, unspecified; R91.1 Solitary pulmonary nodule
CPT/HCPCS: 36415; 71275; 80053; 93005; 96361; 96374; 96375; 96376; 99285; 81003; 81015; 84484; 85025; 93010; 99284; J1885; J2405; J3490

== ENCOUNTER 2021-02-09 09:15 | Emergency (ER) | payer MEDICARE, SELFPAY ==
[2021-02-09 09:22] VITALS: BP 156/96; PULSE 82; RESP 28; TEMP 36; O2SAT 98
[2021-02-09 09:38] LABS: Bilirubin Negative (Negative); Blood Small (Negative); Clarity Clear (Clear); Glucose Negative (Negative); Ketones Negative (Negative); Leukocyte Esterase Negative (Negative); Nitrite Negative (Negative); Urobilinogen 0.2 EU/dL (Up TO 0.2); pH 5.5 (5-8)
[2021-02-09 09:45] LABS: Bacteria Few HPF (Negative); C & S Indicated? No/Sq. Contamination; Casts Negative LPF (Negative); Crystals Negative HPF (Negative); Epithelial Cells Many HPF (Negative); Mucus Negative (Negative); WBC 0-2 HPF (0-5)
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
[2021-02-09] MEDS: Ketorolac 15 MG/ML VIAL IVP (10:18)
[2021-02-09] MEDS: LORazepam 2 MG/ML VIAL 1 MG IVP (10:19)
[2021-02-09] MEDS: MORPHine 10 MG/ML VIAL 2 MG IVP (10:19)
[2021-02-09 10:26] LABS: Abs Immature Grans 0.03 10^3/uL (0.0-0.06); Absolute Basophil Count 0.07 10^3/uL (0.0-0.2); Absolute Eosinophil Count 0.36 10^3/uL (0.0-0.7); Absolute Lymphocyte Count 4.81 10^3/uL (1.2-3.4); Absolute Monocyte Count 0.82 10^3/uL (0.1-0.8); Basophils % 0.6; HCT 47.1 % (36.0-46.0); HGB 15.7 g/dL (11.2-15.7); Immature Grans % 0.2; Lymphocytes % 39.7; MCHC 33.3 % (32.0-36.0); MCV 89.9 fL (80-95); MPV 8.8 fL (8.0-11.0); Monocytes % 6.8; Neutrophils % 49.7; Nucleated RBC 0 %; Platelet Count 400 10^3/uL (130-400); RBC 5.24 10^6/uL (3.93-5.22); RDW 13.5 % (11.7-14.6); RDW-SD 44.4 fL; WBC 12.12 10^3/uL (4.4-10.8)
[2021-02-09 10:33] LABS: Absolute Neutrophil Count 6.02 10^3/uL (1.2-6.7)
[2021-02-09 10:37] LABS: ALT 27 U/L (14-59); AST 18 U/L (15-37); Albumin 4.4 g/dL (3.4-5.0); Alkaline Phosphatase 95 U/L (46-116); Anion Gap 16.1 mmol/L (3-11); BUN 13 mg/dL (7-18); Bilirubin, Total 0.3 mg/dL (0.2-1.0); CO2 21.9 mmol/L (21.0-32.0); Calcium 10.1 mg/dL (8.5-10.1); Chloride 103 mmol/L (98-107); Estimated GFR 54.81 (mL/min/1.73m2); Glucose 97 mg/dL (74-106); Lipase 299 U/L (73-393); Potassium 4.1 mmol/L (3.5-5.1); Sodium 141 mmol/L (136-145); Total Protein 8.2 g/dL (6.4-8.2)
--- NOTE | 2021-02-09 10:39 | DI.CT_ITS ---
Exam(s) CT RENAL COLIC WO EXAM: CT RENAL COLIC WO CLINICAL HISTORY: back pain, dx with stone 2 days ago. TECHNIQUE: Imaging Protocol: Axial computed tomography images with coronal and sagittal reformatted images were created and reviewed. COMPARISON: CT RENAL COLIC WO CONTRAST from 06/26/2011 CT RENAL COLIC WO CONTRAST from 07/28/[address] RENAL COLIC WO from 02/06/[address] CHEST PE CTA from 02/07/2021 FINDINGS: ABDOMEN: Lung Bases: There is a 3 mm nodule again seen in the right lower lobe. Liver: Normal density. No measurable mass. Gallbladder and biliary tract: No radiodense calculus or biliary ductal dilation. Pancreas: Normal density, no abnormal calcifications or inflammatory process. Spleen: Normal. Kidneys: Normal size, contour and axis.There is no nephrolithiasis. The calcifications seen within o r adjacent to the proximal left ureter is unchanged. There is no hydronephrosis. No masses seen. Adrenal glands: No mass is seen. Lymph nodes: Within normal limits. Abdominal Aorta: Abdominal portion non-dilated. Moderate atherosclerosis. PELVIS: Bladder:Symmetric distention, no gross wall thickening. Bowel: No obstruction or bowel wall thickening. Appendix is unremarkable. There is diverticulosis in the sigmoid colon, but no evidence of acute diverticulitis. Peritoneal cavity: No ascites, collection or mesenteric inflammatory response. No free air. Reproductive organs: Within normal limits. Bones: Grade 1 spondylolisthesis of L4 on L5 is noted. [id number] degenerative changes are pre sent throughout the thoracic and lumbar spine. Soft Tissues: Within normal limits. IMPRESSION: 1. No evidence of hydronephrosis or nephrolithiasis. 2. The calcification persists adjacent to or within the proximal left ureter. A CT urogram may be co nsidered to determine if the calcification is within or next to the left ureter. 3. Results of this exam have been verbally communicated with provider. 4. 3 mm pulmonary nodule in the right lung base. In low risk patients, no follow-up is recommended. In high risk patients (history of smoking or other pertinent history), a CT scan in 12 months should be considered. Incidental Findings RADIATION DOSE DELIVERED: 934.41mGy.cm Total DLP DATA REPOSITORY: All CT scans at this facility are submitted to the National Radiology Data Registry (NRDR) Dose Index Registry (DIR) with the [employer] (A[employer]). RADIATION OPTIMIZATION: All CT scans at this facility use at least one of these dose optimization te chniques: automated exposure control; mA and/or kV adjustment per patient size (includes targeted exa ms where dose is matched to clinical indication); or iterative reconstruction.
--- NOTE | 2021-02-09 11:08 | NUR.NOTE ---
faxed referral to urology
== END 2021-02-09 12:12 | disposition home or self-care (01) ==
PROVIDERS: Emergency Provider Physician Assistant; PCP Internal Medicine
DX: M54.9 Dorsalgia, unspecified (principal)
CPT/HCPCS: 36415; 80053; 83690; 96374; 96375; 99284; 74176; 81003; 81015; 85025; J1885; J2060; J2270

== ENCOUNTER → 2021-03-08 10:51 | Outpatient (BNVA) | payer MEDICARE, SELFPAY | PROVIDERS: PCP Internal Medicine; Referring Provider Internal Medicine; Visit Provider Nurse Practitioner Gerontology | DX: N20.0 Calculus of kidney (principal); R10.9 Unspecified abdominal pain; I10 Essential (primary) hypertension | CPT/HCPCS: 99215 ==

== ENCOUNTER 2021-04-23 18:55 | Inpatient (IN) | payer MEDICARE, MEDICAID, SELFPAY ==
[2021-04-23] VITALS (68 sets, daily range): BP systolic 46–150; BP diastolic 31–100; PULSE 46–140; RESP 12–45; TEMP 36.4; O2SAT 94–99
--- NOTE | 2021-04-23 19:15 | RT.EKG_ITS ---
APPROVED REPORT Exam: Resting ECG Reason for Exam: overdose Patient Location: E HR:58 bpm ECG Measurements Heart Rate 58 AXIS MA 129 P 42 QRSd 107 QRS 69 QT 430 T 69 QTc 421 Conclusion Sinus bradycardia...rate< 60 I have reviewed and interpreted ECG and agree with software generated interpretation. Normal Intervals
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
[2021-04-23 19:50] LABS: Abs Immature Grans 0.02 10^3/uL (0.0-0.06); Absolute Basophil Count 0.09 10^3/uL (0.0-0.2); Absolute Eosinophil Count 0.18 10^3/uL (0.0-0.7); Absolute Lymphocyte Count 4.24 10^3/uL (1.2-3.4); Absolute Monocyte Count 0.84 10^3/uL (0.1-0.8); Absolute Neutrophil Count 4.98 10^3/uL (1.2-6.7); Basophils % 0.9; Eosinophils % 1.7; HCT 45.7 % (36.0-46.0); HGB 15.1 g/dL (11.2-15.7); Immature Grans % 0.2; MCH 29.5 pg (27.0-33.0); MCV 89.4 fL (80-95); MPV 8.7 fL (8.0-11.0); Monocytes % 8.1; Neutrophils % 48.1; Nucleated RBC 0 %; Platelet Count 337 10^3/uL (130-400); RBC 5.11 10^6/uL (3.93-5.22); RDW 13.8 % (11.7-14.6); RDW-SD 45.2 fL; WBC 10.35 10^3/uL (4.4-10.8)
[2021-04-23 19:57] LABS: Magnesium 2.3 mg/dL (1.8-2.4)
[2021-04-23 20:04] LABS: ALT 25 U/L (14-59); AST 17 U/L (15-37); Albumin 3.9 g/dL (3.4-5.0); Alkaline Phosphatase 107 U/L (46-116); Anion Gap 7.2 mmol/L (3-11); BUN 12 mg/dL (7-18); Bilirubin, Total 0.4 mg/dL (0.2-1.0); CO2 28.8 mmol/L (21.0-32.0); Calcium 9.5 mg/dL (8.5-10.1); Chloride 108 mmol/L (98-107); Estimated GFR 54.81 (mL/min/1.73m2); Glucose 77 mg/dL (74-106); Potassium 3.9 mmol/L (3.5-5.1); Sodium 144 mmol/L (136-145); Total Protein 7.4 g/dL (6.4-8.2)
[2021-04-23 20:06] LABS: Acetaminophen 58 ug/mL (10-30); Salicylate 4.9 mg/dL (<2.8)
[2021-04-23 20:07] LABS: Troponin I < 0.05 ng/mL (<0.06)
[2021-04-23 20:17] LABS: Bilirubin Negative (Negative); Blood Small (Negative); Clarity Sl Cloudy (Clear); Glucose Negative (Negative); Ketones Negative (Negative); Leukocyte Esterase Negative (Negative); Nitrite Negative (Negative); Specific Gravity 1.025 (1.005-1.025); Urobilinogen 0.2 EU/dL (Up TO 0.2); pH 6.5 (5-8)
[2021-04-23 20:21] LABS: ETHANOL BLOOD < 3.0 mg/dL (<3)
--- NOTE | 2021-04-23 20:30 | DI.RAD_ITS ---
Exam(s) XR PORTABLE CHEST AP EXAM: XR PORTABLE CHEST AP CLINICAL HISTORY: ETT placement TECHNIQUE: COMPARISON: CR,XR XR CHEST 2V PA LATERAL from 12/16/2020 FINDINGS: Supine AP chest at 0857 hours. Cardiac size appears within normal limits. Lungs are clear and well expanded. There is an ET tube in position 4-4.5 cm above the taryn. There is an NG tube in positio n which extends at least to the gastric body. IMPRESSION: No evidence of acute process. RADIATION DOSE DELIVERED: Total DLP
[2021-04-23 20:34] LABS: *AMPHETAMINES SCREEN URINE Negative (Negative); *BARBITURATES SCREEN URINE Negative (Negative); *BENZODIAZEPINES SCREEN URINE Negative (Negative); Cannabinoids THC Negative (Negative); Cocaine Screen,Urine Negative (Negative); METHADONE URINE SCREEN Negative (Negative); OPIATES URINE SCREEN Positive (Negative)
[2021-04-23 20:35] LABS: Bacteria Negative HPF (Negative); C & S Indicated? No/Sq. Contamination; Casts Negative LPF (Negative); Crystals Negative HPF (Negative); Epithelial Cells Many HPF (Negative); Mucus Negative (Negative); Other Cells Negative (Negative); RBC 0-2 HPF (0-2); WBC 0-2 HPF (0-5)
[2021-04-23] MEDS: Etomidate 20 MG/10 ML VIAL IVP (20:35)
[2021-04-23 20:40] LABS: Tricyclic Antidepressants Positive (Negative)
[2021-04-23] MEDS: MIDAZOLAM 50 MG in Normal Saline 90 ML IV (20:45)
[2021-04-23] MEDS: fentaNYL 1,000 MCG in Normal Saline 80 ML 0.849 MCG IV (21:06)
--- NOTE | 2021-04-23 21:07 | DI.VRAD_ITS ---
PROCEDURE INFORMATION: Exam: XR Chest Exam date and time: 04/23/2021 8:44 PM Age: 70 years old Clinical indication: Device placement; Ett placement (vent status) TECHNIQUE: Imaging protocol: XR of the chest. Views: 1 view. COMPARISON: CR XR CHEST 2V PA LATERAL 12/16/2020 9:12 PM FINDINGS: Tubes, catheters and devices: Interval placement of an endotracheal tube with tip approximately 3.5 cm above the taryn, in adequate position. A nasogastric tube is seen traversing through the stomach with tip most likely within the distal body/antrum (outside of the field of view). Lungs: Unremarkable. No consolidation. Pleural spaces: Unremarkable. No pleural effusion. No pneumothorax. Heart/Mediastinum: Unremarkable. No cardiomegaly. Bones/joints: Unremarkable. IMPRESSION: 1. Interval placement of an endotracheal tube with tip approximately 3.5 cm above the taryn, in adequate position. 2. No evidence of acute cardiopulmonary process. Dictated and Authenticated by: Jeremiah Mary MD. Ordering:PIERRE Velazquez MD
[2021-04-23 21:13] LABS: Source Nasal/Nares
[2021-04-23 22:05] LABS: COVID-19 PCR Negative (Negative)
[2021-04-23] MEDS: Succinylcholine 200 MG/10 ML VIAL 100 MG IVP (22:15)
[2021-04-23] MEDS: Normal Saline 500 ML IV (22:17)
--- NOTE | 2021-04-23 22:27 | NUR.NOTE ---
Pupils assessed 5mm with left being more briskly responsive than the right. Bilateral wandering gazeNursing Note:
[2021-04-23 23:15] LABS: Salicylate 4.1 mg/dL (<2.8)
[2021-04-23 23:20] LABS: Acetaminophen 94 ug/mL (10-30)
--- NOTE | 2021-04-23 23:24 | NUR.NOTE ---
Report from OCTAVIO RN for continue care. Awaiting ICU call to transport patient to inpatient unit.Nursing Note:
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
[2021-04-23] MEDS: Normal Saline 1,000 ML 200 ML IV (23:29)
[2021-04-24] VITALS (229 sets, daily range): BP systolic 53–162; BP diastolic 25–98; PULSE 43–108; RESP 11–38; TEMP 36.3–37.5; O2SAT 92–97
[2021-04-24] MEDS: Normal Saline 500 ML IV (01:12)
[2021-04-24] MEDS: Atropine 1 MG/10 ML SYRINGE ×2 (02:22→02:37)
--- NOTE | 2021-04-24 06:36 | NUR.NOTE ---
Nursing Note:Checked with ED RN, unable to complete med rec. at this time due to Pt. being intubated and sedated
[2021-04-24 07:14] LABS: Abs Immature Grans 0.06 10^3/uL (0.0-0.06); Absolute Basophil Count 0.06 10^3/uL (0.0-0.2); Absolute Eosinophil Count 0.07 10^3/uL (0.0-0.7); Absolute Monocyte Count 0.71 10^3/uL (0.1-0.8); Basophils % 0.5; Eosinophils % 0.6; HCT 47.1 % (36.0-46.0); HGB 14.9 g/dL (11.2-15.7); Immature Grans % 0.5; Lymphocytes % 33.2; MCH 29.7 pg (27.0-33.0); MCHC 31.6 % (32.0-36.0); MCV 93.8 fL (80-95); MPV 8.8 fL (8.0-11.0); Monocytes % 6.4; Neutrophils % 58.8; Nucleated RBC 0 %; Platelet Count 260 10^3/uL (130-400); RBC 5.02 10^6/uL (3.93-5.22); RDW 14.4 % (11.7-14.6); RDW-SD 50.2 fL; WBC 11.14 10^3/uL (4.4-10.8)
[2021-04-24] MEDS: Normal Saline 1,000 ML 200 ML IV (07:20)
[2021-04-24 07:21] LABS: Absolute Neutrophil Count 6.55 10^3/uL (1.2-6.7)
[2021-04-24 07:34] LABS: ALT 52 U/L (14-59); AST 64 U/L (15-37); Albumin 3.6 g/dL (3.4-5.0); Alkaline Phosphatase 89 U/L (46-116); Anion Gap 10.2 mmol/L (3-11); BUN 14 mg/dL (7-18); Bilirubin, Total 0.5 mg/dL (0.2-1.0); CO2 22.8 mmol/L (21.0-32.0); CREATININE 1.5 mg/dL (0.55-1.02); Calcium 8.1 mg/dL (8.5-10.1); Chloride 112 mmol/L (98-107); Estimated GFR 34.33 (mL/min/1.73m2); Glucose 95 mg/dL (74-106); Potassium 4.4 mmol/L (3.5-5.1); Sodium 145 mmol/L (136-145); Total Protein 6.6 g/dL (6.4-8.2)
[2021-04-24 07:42] LABS: TSH 1.77 uIU/mL (0.36-3.74)
[2021-04-24] MEDS: Enoxaparin 40 MG/0.4 ML SYR SC (07:51)
--- NOTE | 2021-04-24 08:00 | RT.EKG_ITS ---
APPROVED REPORT Exam: Resting ECG Reason for Exam: BRADYCARDIA and hypotension; BB overdose Patient Location: I HR:58 bpm ECG Measurements Heart Rate 58 AXIS IA 174 P 30 QRSd 102 QRS 44 QT 450 T 4 QTc 443 Conclusion Sinus bradycardia...rate< 60 Low voltage, precordial leads...precordial leads <1.0mV
[2021-04-24 08:37] LABS: Acetaminophen 35 ug/mL (10-30); Troponin I < 0.05 ng/mL (<0.06)
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
[2021-04-24] MEDS: Lactated Ringers 1,000 ML 85 ML IV ×2 (09:30→21:50)
[2021-04-24 09:35] LABS: BE -7 mmol/L (-2-3); HCO3 19 mmol/L (22-26); pCO2 38 mmHg (35-45); pH 7.31 (7.35-7.45); pO2 90 mmHg (80-105); sO2 97 % (95-98); tCO2 17 mmol/L (23-27)
[2021-04-24 09:38] LABS: FIO2 30 %; Site Right Radial
[2021-04-24] MEDS: Normal Saline Flush 10 ML SYR IVP (09:41)
[2021-04-24] MEDS: Pantoprazole 40 MG VIAL IVP (09:41)
[2021-04-24 10:40] LABS: Bilirubin Small (Negative); Blood Large (Negative); Clarity Sl Cloudy (Clear); Glucose Negative (Negative); Ketones Negative (Negative); Leukocyte Esterase Negative (Negative); Nitrite Negative (Negative); Specific Gravity >= 1.030 (1.005-1.025); Urobilinogen 0.2 EU/dL (Up TO 0.2); pH 5.5 (5-8)
[2021-04-24 10:54] LABS: Bacteria Few HPF (Negative); C & S Indicated? No; Casts 0-2 Hyaline LPF (Negative); Crystals Negative HPF (Negative); Epithelial Cells Rare HPF (Negative); Mucus Moderate (Negative); RBC 20-50 HPF (0-2); WBC 0-2 HPF (0-5)
[2021-04-24] MEDS: dexmedeTOMidine IN 0.9 % NACL 400 MCG/100 ML BTL IVPB (12:34)
[2021-04-24] MEDS: dexmedeTOMidine IN 0.9 % NACL 400 MCG/100 ML BTL 12.39 MCG IVPB (23:31)
[2021-04-25] VITALS (122 sets, daily range): BP systolic 77–176; BP diastolic 62–103; PULSE 51–66; RESP 11–37; TEMP 35.9–37.1; O2SAT 92–98
--- NOTE | 2021-04-25 | DI.US_ITS ---
Exam(s) US ABDOMEN EXAM: US ABDOMEN CLINICAL HISTORY: Transaminitis, polysubstance overdose TECHNIQUE: Ultrasound of complete upper abdomen performed using standard protocol. COMPARISON: US PELVIS TRANSVAG from 11/14/2017 FINDINGS: LIVER: Liver size is slightly prominent. Prominent hyperechoic focus in the liver. This may represe nt the fat within the inter lobar fissure but cannot exclude hemangioma or other lesion GALLBLADDER/BILIARY: There are no gallstones but the gallbladder wall is edematous, measuring 6 cornell meter thick. There is also small amount of pericholecystic fluid. The common hepatic duct isnot dilated, measuring 4mm at the level of myra hepatis. PANCREAS: There is no evidence of pancreatic mass nor dilatation of the pancreatic duct. SPLEEN: Spleen is not able to be seen on this study. KIDNEYS:Kidneys exhibit normal size with no evidence of solid mass, calculus, nor hydronephrosis. No cortical cysts evident. ABDOMINAL AORTA: There is no evidence of abdominal aortic aneurysm. IVC: Normal diameter where visualized. IMPRESSION: 1. No obvious gallstones but the gallbladder wall appears edematous. Correlation with any clinical signs of a calculus cholecystitis recommended. Common hepatic duct is not dilated. If clinically in dicated this could be further studied with nuclear HIDA scan 2. Mild hepatomegaly. Also prominent hyperechoic focus within the liver noted. There is possibly t hat this may just represent prominent fat within the interlobar fissure but further imaging recommend ed. 3. Recommend follow-up MRI. DATA REPOSITORY:
[2021-04-25] MEDS: MIDAZOLAM 50 MG in Normal Saline 90 ML IV (04:00)
--- NOTE | 2021-04-25 05:56 | NUR.NOTE ---
Nursing Note: Recieved a telephonic call from Poison Control Ms. Loving enquiring about pt's condition.
--- NOTE | 2021-04-25 07:15 | PUCC_ITS ---
General Date of Service Date of service: 04/25/21 Time of Service: 07:45 Reason for Admission to ICU: Polysubstance overdose with altered mental status. Inability to protect airway. Assessment and Plan Assessment and plan (1) Aspiration pneumonia: Status: Suspected Qualifiers: Aspiration pneumonia type: unspecified Laterality: left Lung location: lower lobe of lung Qualified Code(s): J69.0 - Pneumonitis due to inhalation of food and vomit (2) Acute kidney injury (nontraumatic): Status: Acute (3) Polysubstance overdose: Status: Acute Qualifiers: Encounter type: initial encounter Injury intent: intentional self-harm Qualified Code(s): T50.902A - Poisoning by unspecified drugs, medicaments and biological substances, intentional self-harm, initial encounter (4) Depressive disorder: Status: Chronic (5) Leukocytosis: Status: Acute Qualifiers: Leukocytosis type: unspecified Qualified Code(s): D72.829 - Elevated white blood cell count, unspecified (6) Obstructive sleep apnea: Status: Chronic (7) Transaminitis: Status: Acute Assessment and plan: This is a 70-year-old male who was admitted for polysubstance abuse in the setting of depression and the need for mechanical ventilation due to inability to protect airway. She was sedated with Versed since admission which I turned off this morning. She is also on Precedex. She is beginning to awaken this morning however has a waxing and waning mental status which is likely due to the Versed use for her sedation. She did okay on her spontaneous breathing trial today at 8/5 however given her new infiltrate in her left lung as well as copious secretions we will hold off on extubating her at this moment. He will benefit from some antibiotic treatment and our plan will be hopefully to extubate her first thing tomorrow morning. We will keep her on Precedex and plan for spontaneous breathing trial tomorrow morning. Recommendations Pulmonary: Inability to protect airway - continue Mechanical Ventilation - recommend 6cc/kg tidal volumes given aspiration pneumonia to prevent acute lung injury - would not put rate over 15 unless she developes a respiratory acidosis (not just retention) - some CO2 will stimulate her to take breaths - can be on pressure support through day if she is tolerating, but recommend putting her back on volume control overnight - daily sedation vacations (completed today with me in the room) - Failed SBT today likely due to both excess drug (Versed - very lipophilic) hanging around as well as an aspiration pneumonia - will keep her on mechanical ventilation today with a plan for user interface engineer SBT and hopefully an extubation - recommend airway clearance with frequent suctioning Cardiac: Bradycardia - no acute intervention needed Transient Hypotension - required levophed briefly, stable now Renal: MIKE - improving with gentle IVF, likely prerenal - ok with slow fluids for now, I would discontinue them tomorrow, particularly if she cannot be extubated I&O: Intake & Output 04/22/21 04/23/21 04/24/21 04/25/21 23:59 23:59 23:59 23:59 Intake Total 443.161 / 195.850 6052.416 / 3093.416 857.556 / 857.556 Output Total 500 / 500 925 / 925 500 / 500 Balance -56.839 / -56.839 2168.416 / 2168.416 357.556 / 357.556 Weight 84.9 kg 82.6 kg Daily Fluid Goal:: even to slightly positive GI Nutrition: Transaminitis - likely in the setting of overdose - would still recommend checking hepatitis panel and obtaining an abdominal ultrasound - HIV negative in 2018 Nutrition - ok to hold off for now, but if she is not extubated tomorrow she should be started on tube feeds Infectious Disease: Aspiration Pneumonia - would recommend treating with ceftriaxone - low cross-reactivity rate with penicillin allergies - no need to cover for anaerobic bacteria - airway clearance with frequent suctioning Hematologic: Leukocytosis - reactive vs due to aspiration pneumonia Neurologic: Polysubstance overdose - no active cardiovascular issues - mental status improving - will need sitter upon extubation - hold all home meds for now Pain/Sedation - recommend sedation with Precedex - recommend a prn fentanyl and prn low dose Ativan for pain and agitation issues Endocrine: No acute concerns Lines: PIV Cabrera Prophylaxis: Lovenox and Pantoprazole Code Status: Resuscitation Status Full Code Subjective Critical and life-threatening events over the past 24 hours: Information gathered is from chart review given the patient is intubated and sedated. This is a 70-year-old woman who has a history of depression, and ADAM who presents to the emergency department in the setting of polysubstance overdose. Per report there was Tylenol, Vicodin, Ativan, ER metoprolol and venlafaxine th at were likely ingestions. In the emergency department her mental status progressively worsened and speech became unintelligible and given this she was intubated for airway protection. Per documentation her intubation was uncomplicated and performed without difficulty. She was started on Versed and fentanyl for sedation. Was found to have an elevated Tylenol level however based on the level and time of ingestion was unlikely to be any hepatic toxicity. She was then admitted to the ICU and remained on mechanical ventilation. She did require some Levophed for short amount of time however this has fluctuated during her hospital stay. Exam Const General: no acute distress Nutritional Appearance: well nourished [facility] Head: normocephalic Ears: external ears normal and no periauricular adenopathy General nose exam: nasal mucous membranes and turbinates normal Face and sinus: sinuses nontender Mouth: oropharynx normal and mucous membranes dry Teeth and gingiva: dentition normal Eyes General: appearance normal, both eyes and all related structures Pupils: PERRL Neck Neck: normal visual inspection and no lymphadenopathy Chest Chest: normal inspection of the chest Resp Effort & Inspection: normal respiratory effort Auscultation: clear to auscultation bilaterally, no rales, rhonchi lower bilaterally and no wheezes Cardio Rate: regular rate Rhythm: regular rhythm Heart Sounds: S1 normal, S2 normal and no murmurs Pulses: radial pulses present bilaterally GI Inspection: normal to inspection Palpation: soft Skin General skin exam: no rashes or lesions noted Neuro General: moves all extremities and other (RASS -2) Extrem General: no clubbing, cyanosis or edema Psych Affect: normal affect Attitude: cooperative Most Recent VS/Results Last Vital Signs Temp 36.2 C L 04/25/21 06:00 Pulse 60 04/25/21 06:02 Resp 19 04/25/21 06:30 BP 143/71 H 04/25/21 06:30 Pulse Ox 94 04/25/21 06:30 Laboratory Results - last 24 hr 04/24/21 04/24/21 04/24/21 06:10 06:10 06:10 WBC 11.14 H RBC 5.02 Hgb 14.9 Hct 47.1 H MCV 93.8 D MCH 29.7 MCHC 31.6 L RDW 14.4 Plt Count 260 MPV 8.8 Immature Gran % 0.5 Neutrophils % 58.8 Lymphocytes % 33.2 Monocytes % 6.4 Eosinophils % 0.6 Basophils % 0.5 Nucleated RBC % 0 Absolute Neutrophils 6.55 Absolute Lymphocytes 3.70 H Absolute Monocytes 0.71 Absolute Eosinophils 0.07 Absolute Basophils 0.06 ABG Sample Site ABG pH ABG pCO2 ABG pO2 ABG HCO3 ABG Total CO2 ABG O2 Saturation ABG Base Excess Oxygen Liter Flow FiO2 Sodium 145 Potassium 4.4 Chloride 112 H Carbon Dioxide 22.8 Anion Gap 10.2 BUN 14 Creatinine 1.5 H Estimated GFR/1.73 m2 34.33 Glucose 95 Calcium 8.1 L Total Bilirubin 0.5 AST 64 H ALT 52 Alkaline Phosphatase 89 Troponin I < 0.05 Total Protein 6.6 Albumin 3.6 TSH 1.77 Urine Color Urine Clarity Urine pH Ur Specific [place] Urine Protein Urine Ketones Urine Blood Urine Nitrite Urine Bilirubin Urine Urobilinogen Ur Leukocyte Esterase Urine RBC Urine WBC Ur Epithelial Cells Urine Crystals Urine Bacteria Urine Casts Urine Mucus Ur Culture Indicated? Urine Glucose Acetaminophen 35 H 04/24/21 04/24/21 09:30 10:25 WBC RBC Hgb Hct MCV MCH MCHC RDW Plt Count MPV Immature Gran % Neutrophils % Lymphocytes % Monocytes % Eosinophils % Basophils % Nucleated RBC % Absolute Neutrophils Absolute Lymphocytes Absolute Monocytes Absolute Eosinophils Absolute Basophils ABG Sample Site Right Radial ABG pH 7.31 L ABG pCO2 38 ABG pO2 90 ABG HCO3 19 L ABG Total CO2 17 L ABG O2 Saturation 97 ABG Base Excess -7 L Oxygen Liter Flow 330/14/5 FiO2 30 Sodium Potassium Chloride Carbon Dioxide Anion Gap BUN Creatinine Estimated GFR/1.73 m2 Glucose Calcium Total Bilirubin AST ALT Alkaline Phosphatase Troponin I Total Protein Albumin TSH Urine Color Yellow Urine Clarity Sl Cloudy Urine pH 5.5 Ur Specific [place] >= 1.030 H Urine Protein 100 H Urine Ketones Negative Urine Blood Large H Urine Nitrite Negative Urine Bilirubin Small H Urine Urobilinogen 0.2 Ur Leukocyte Esterase Negative Urine RBC 20-50 H Urine WBC 0-2 Ur Epithelial Cells Rare Urine Crystals Negative Urine Bacteria Few Urine Casts 0-2 Hyaline Urine Mucus Moderate Ur Culture Indicated? No Urine Glucose Negative Acetaminophen Review of Systems Unobtainable due to endotracheal tube and Unobtainable due to mental condition Time spent with patient Time spent in Critical Care: 45 Time spent in Critical care included: Coordination of care, Chart review, Docume nting critically ill care, Time at immediate bedside and Discussing critically ill care with other medical staff
[2021-04-25 07:27] LABS: Abs Immature Grans 0.04 10^3/uL (0.0-0.06); Absolute Basophil Count 0.05 10^3/uL (0.0-0.2); Absolute Monocyte Count 0.71 10^3/uL (0.1-0.8); Absolute Neutrophil Count 8.95 10^3/uL (1.2-6.7); Basophils % 0.4; Eosinophils % 0.6; HCT 42.2 % (36.0-46.0); HGB 13.7 g/dL (11.2-15.7); Immature Grans % 0.3; Lymphocytes % 22.2; MCH 29.1 pg (27.0-33.0); MCHC 32.5 % (32.0-36.0); MCV 89.6 fL (80-95); MPV 9.3 fL (8.0-11.0); Monocytes % 5.6; Neutrophils % 70.9; Nucleated RBC 0 %; Platelet Count 198 10^3/uL (130-400); RBC 4.71 10^6/uL (3.93-5.22); RDW-SD 46.2 fL; WBC 12.62 10^3/uL (4.4-10.8)
[2021-04-25] MEDS: dexmedeTOMidine IN 0.9 % NACL 400 MCG/100 ML BTL 12.39 MCG IVPB (07:29)
[2021-04-25 07:31] LABS: Absolute Eosinophil Count 0.08 10^3/uL (0.0-0.7)
--- NOTE | 2021-04-25 07:45 | DI.RAD_ITS ---
Exam(s) XR PORTABLE CHEST AP EXAM: XR PORTABLE CHEST AP CLINICAL HISTORY: respiratory failure; ?aspiration. TECHNIQUE: 2D digital imaging was performed. COMPARISON: CR,XR XR PORTABLE CHEST AP from 04/23/2021 FINDINGS: Heart size unchanged. Chest leads in place.. The mediastinum is not widened. Left lower lobe infiltrate noted. Right lung is clear. No obvious pleural effusions. No pneumothor ax. NG tube is again noted. IMPRESSION: Left lower lobe infiltrate. DATA REPOSITORY: RADIATION DOSE DELIVERED: All CT scans at this facility use at least one of these dose optimization techniques: automated exposure control; mA and/or kV adjustment per patient size (includes targeted e xams where dose is matched to clinical indication); or iterative reconstruction.
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
--- NOTE | 2021-04-25 08:36 | PDOC.CMPRO ---
- If Service Date Differs Date of service: 04/25/21 Time of Service: 08:36 Care Management Progress Note S/O:Sun remains in ICU on a ventilator. A weaning trial was done this morning but Sun was too sedated to pass. Another trial may be attempted later today. Emily Pelletier from [facility] came to see Sun this morning but was unable to visit due to her condition. Emily shared that Sun has been with them for about 2 months. Sun's WBC has been slowly climbing since admission and her LFTs are now elevated, as is her creatinine. A chest XRay revealed that she has a new left lower lobe infiltrate. CM continues to follow. A: Snu is a 70 year old woman admitted on 04/23/21 with an intentional overdose P: Undetermined at this time. Anticipate Sun will require a psychiatric hospitalization before she can return home. CM will continue to support Sun and her family and assess for discharge planning needs.
[2021-04-25 09:07] LABS: ALT 819 U/L (14-59); Albumin 3.1 g/dL (3.4-5.0); Alkaline Phosphatase 79 U/L (46-116); Anion Gap 11.6 mmol/L (3-11); BUN 15 mg/dL (7-18); Bilirubin, Total 0.6 mg/dL (0.2-1.0); CO2 21.4 mmol/L (21.0-32.0); CREATININE 1.2 mg/dL (0.55-1.02); Calcium 8.7 mg/dL (8.5-10.1); Chloride 113 mmol/L (98-107); Estimated GFR 44.41 (mL/min/1.73m2); Glucose 81 mg/dL (74-106); Sodium 146 mmol/L (136-145); Total Protein 6.3 g/dL (6.4-8.2)
[2021-04-25 09:08] LABS: AST 931 U/L (15-37)
[2021-04-25] MEDS: Pantoprazole 40 MG VIAL IVP (09:28)
[2021-04-25] MEDS: Enoxaparin 30 MG/0.3 ML SYR SC (09:32)
--- NOTE | 2021-04-25 10:13 | W.NUTRFU ---
Date of service: 04/25/21 Time of Service: 10:14 Nutritional Follow up NOTE: Nutrition Screening Note Pt. NPO since yesterday 04/24. BMI 34.4 kg/mw. Will continue to follow progress and monitor NPO status. No nutritional intervention at this time. Time Spent in Nutritional Counseling and Treatment: 0
[2021-04-25] MEDS: Lactated Ringers 1,000 ML 85 ML IV (11:24)
[2021-04-25] MEDS: cefTRIAXone 2 GM/50 ML BAG IVPB (12:52)
[2021-04-25] MEDS: fentaNYL 100 MCG/2 ML VIAL IVP ×4 (13:46→21:25)
[2021-04-25] MEDS: metroNIDAZOLE 500 MG/100 ML BAG 100 MG IVPB ×2 (13:47→20:54)
[2021-04-25] MEDS: fentaNYL 100 MCG/2 ML VIAL 50 MCG IVP (14:25)
[2021-04-25] MEDS: Normal Saline Flush 10 ML SYR IVP (14:26)
[2021-04-25] MEDS: dexmedeTOMidine IN 0.9 % NACL 400 MCG/100 ML BTL 14.455 MCG IVPB ×2 (15:49→22:33)
[2021-04-25] MEDS: LORazepam 2 MG/ML VIAL 1 MG IVP (21:25)
[2021-04-26] VITALS (100 sets, daily range): BP systolic 88–184; BP diastolic 43–125; PULSE 54–146; RESP 16–34; TEMP 34–37.1; O2SAT 89–97
[2021-04-26] MEDS: fentaNYL 100 MCG/2 ML VIAL IVP ×2 (00:47→03:32)
[2021-04-26] MEDS: LORazepam 2 MG/ML VIAL 1 MG IVP ×2 (00:48→03:32)
[2021-04-26] MEDS: metroNIDAZOLE 500 MG/100 ML BAG 100 MG IVPB ×4 (03:18→21:59)
[2021-04-26] MEDS: dexmedeTOMidine IN 0.9 % NACL 400 MCG/100 ML BTL 14.455 MCG IVPB (05:13)
[2021-04-26 06:57] LABS: Abs Immature Grans 0.04 10^3/uL (0.0-0.06); Absolute Basophil Count 0.03 10^3/uL (0.0-0.2); Absolute Eosinophil Count 0.15 10^3/uL (0.0-0.7); Basophils % 0.2; Eosinophils % 1.1; HCT 41.5 % (36.0-46.0); HGB 13.8 g/dL (11.2-15.7); Immature Grans % 0.3; Lymphocytes % 25.6; MCHC 33.3 % (32.0-36.0); MCV 87.2 fL (80-95); Monocytes % 5.3; Neutrophils % 67.5; Nucleated RBC 0 %; Platelet Count 186 10^3/uL (130-400); RBC 4.76 10^6/uL (3.93-5.22); RDW 13.2 % (11.7-14.6); RDW-SD 41.7 fL; WBC 13.22 10^3/uL (4.4-10.8)
[2021-04-26 06:58] LABS: Absolute Lymphocyte Count 3.38 10^3/uL (1.2-3.4); Absolute Neutrophil Count 8.92 10^3/uL (1.2-6.7)
[2021-04-26 07:08] LABS: INR 1.1 (0.9-1.1); Prothrombin Time 11.5 sec (9.3-11.0)
[2021-04-26 07:13] LABS: ALT 756 U/L (14-59); AST 423 U/L (15-37); Albumin 2.7 g/dL (3.4-5.0); Alkaline Phosphatase 72 U/L (46-116); Anion Gap 11.6 mmol/L (3-11); BUN 10 mg/dL (7-18); Bilirubin, Total 0.6 mg/dL (0.2-1.0); CO2 25.4 mmol/L (21.0-32.0); CREATININE 0.8 mg/dL (0.55-1.02); Calcium 8.4 mg/dL (8.5-10.1); Chloride 102 mmol/L (98-107); Glucose 154 mg/dL (74-106); Sodium 139 mmol/L (136-145); Total Protein 6.3 g/dL (6.4-8.2)
[2021-04-26 07:15] LABS: ALT 780 U/L (14-59); AST 431 U/L (15-37); Albumin 2.8 g/dL (3.4-5.0); Alkaline Phosphatase 72 U/L (46-116); Bilirubin, Direct 0.1 mg/dL (0.0-0.2); Bilirubin, Total 0.7 mg/dL (0.2-1.0); Total Protein 6.3 g/dL (6.4-8.2)
[2021-04-26] MEDS: Enoxaparin 30 MG/0.3 ML SYR SC (07:46)
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
[2021-04-26] MEDS: Dexamethasone 10 MG/ML VIAL IVP (08:20)
--- NOTE | 2021-04-26 08:28 | PDOC.CMPRO ---
- If Service Date Differs Date of service: 04/26/21 Time of Service: 16:46 Care Management Progress Note S/O: Sun was extubated today. CM was notified and met with her immediately, Sun struggled to talk and clear her secretions, Hi Flow running, and utilized a white board and marker to help her communicate. She requested supporting in gaining information; specifically who found her and questioning where her therapy dog was. CM called [facility] and spoke with Vanessa who reported Sun called EMS herself, and her dog was at her neighbor's house and was being picked up by her friend, Camila ([phone]) Emily PadillaCarlitos ([phone]) from [facility] called and CM provided updates. CM reviewed visitation requirements with Sun and [employer], with recommendations to allow Camila to visit as she is vaccinated and Sun's main support-they've been friends for over 18 years per Sun. CM continues to follow. A: Sun is a 70 year old woman admitted on 04/23/21 with an intentional overdose P: Undetermined at this time. Anticipate Sun will require a psychiatric hospitalization before she can return home; anticipate she will be accessed by [facility] once medically cleared. CM will continue to support Sun and her family and assess for discharge planning needs.
--- NOTE | 2021-04-26 08:39 | PUCC_ITS ---
General Date of Service Date of service: 04/26/21 Time of Service: 07:20 Assessment and Plan Assessment and plan (1) Aspiration pneumonia: Status: Suspected Qualifiers: Aspiration pneumonia type: unspecified Laterality: left Lung location: lower lobe of lung Qualified Code(s): J69.0 - Pneumonitis due to inhalation of food and vomit (2) Acute kidney injury (nontraumatic): Status: Resolved (3) Polysubstance overdose: Status: Acute Qualifiers: Encounter type: initial encounter Injury intent: intentional self-harm Qualified Code(s): T50.902A - Poisoning by unspecified drugs, medicaments and biological substances, intentional self-harm, initial encounter (4) Depressive disorder: Status: Chronic (5) Leukocytosis: Status: Acute Qualifiers: Leukocytosis type: unspecified Qualified Code(s): D72.829 - Elevated white blood cell count, unspecified (6) Obstructive sleep apnea: Status: Chronic (7) Transaminitis: Status: Acute Assessment and plan: This is a 70-year-old female who was admitted for polysubstance abuse in the setting of depression and the need for mechanical jolene tilation due to inability to protect airway. She was sedated with Versed since admission which was turned off 04/25/21. She is also on Precedex for sedation. Her spontaneous breathing trial this morning is much improved from yesterday and she has less secretions. During the assessment for extubation she was found not to have an air leak when the cuff was deflated so extubation will be deferred fo r now. Since starting antibiotics for aspiration pneumonia her secretions have decreased significantly. Recommendations Pulmonary: Inability to protect airway - continue Mechanical Ventilation - recommend 6cc/kg tidal volumes given aspiration pneumonia to prevent acute lung injury - would not put rate over 15 unless she developes a respiratory acidosis (not just retention) - some CO2 will stimulate her to take breaths - can be on pressure support through day if she is tolerating, but recommend putting her back on volume control overnight - daily sedation vacations (completed today with me in the room) - passed SBT today, however no cuff leak on assessment - recommend Decadron 10mg one time and reassessment of cuff leak in 3-4 hours - if cuff leak will plan to extubate, however would not extubate after 1 pm - worse outcomes in late afternoon and overnight extubations - recommend airway clearance with frequent suctioning Cardiac: Bradycardia - no acute intervention needed Transient Hypotension - required levophed briefly, stable now Renal: MIKE, improved - improved with gentle IVF, likely prerenal - recommend stopping IVF - recommend checking magnesium and phosphorus levels (orders placed for add on) Hypokalemia - repletion to 4.0 I&O: Intake & Output 04/23/21 04/24/21 04/25/21 04/26/21 23:59 23:59 23:59 23:59 Intake Total 443.161 / 566.705 8859.416 / 3093.416 1489.510 / 7189.040 3932.036 / 1470.036 Output Total 500 / 500 1200 / 1200 1600 / 1600 1500 / 1500 Balance -56.839 / -56.839 1893.416 / 1893.416 -110.490 / -110.490 -29.964 / - 29.964 Weight 84.9 kg 82.6 kg 89.9 kg 88.4 kg Daily Fluid Goal:: Even GI Nutrition: - if unable to be extubated today recommend starting tube feeds - if extubated recommend a bedside swallow evaluation and regular diet if there are no swallowing issues Transaminitis - likely in the setting of overdose and hypotension - f/u hepatitis panel - abdominal ultrasound shows a gallbladder that is edematous, normal CBD, mild hepatomegaly and a hyperechoic focus with recommendation for MRI - can consider a HIDA scan, but my suspicion is quite low (not an obstructive pattern) and her transaminases are improving - HIV negative in 2018 - was started on IV NAC protocol by the hospitalist for concerns of liver failure in the setting of an elevated acetaminophen, [facility] it is unlikely she has liver failure from Tylenol and treatment is not indicated, however this medication has a very low risk associated with its administration Infectious Disease: Aspiration Pneumonia - would recommend treating with ceftriaxone - low cross-reactivity rate with penicillin allergies - no need to cover for anaerobic bacteria - would discontinue Flagyl - airway clearance with frequent suctioning Hematologic: Leukocytosis - reactive vs due to aspiration pneumonia Neurologic: Polysubstance overdose - no active cardiovascular issues - mental status improving - will need sitter upon extubation - hold all home meds for now Pain/Sedation - recommend sedation with Precedex - can be used after extubation for agitation as well - recommend a prn fentanyl while intubated Endocrine: No acute concerns Lines: PIV [place] Prophylaxis: Lovenox and pantoprazole Code Status: Resuscitation Status Full Code Subjective Critical and life-threatening events over the past 24 hours: She did well overnight and was maintained on Precedex. She did receive fentanyl and Ativan overnight. She was placed on spontaneous breathing trial this morning feeling much better after therapy yesterday. Her secretions were also much improved after starting antibiotic therapy for her pneumonia. Exam Const General: no acute distress Nutritional Appearance: well nourished [facility] Head: normocephalic Ears: external ears normal and no periauricular adenopathy General nose exam: nasal mucous membranes and turbinates normal Face and sinus: sinuses nontender Mouth: oropharynx normal and mucous membranes dry Teeth and gingiva: dentition normal Eyes General: appearance normal, both eyes and all related structures Pupils: PERRL Neck Neck: normal visual inspection and no lymphadenopathy Chest Chest: normal inspection of the chest Resp Effort & Inspection: normal respiratory effort Auscultation: clear to auscultation bilaterally, no rales, no rhonchi and no wheezes Cardio Rate: regular rate Rhythm: regular rhythm Heart Sounds: S1 normal, S2 normal and no murmurs Pulses: radial pulses present bilaterally GI Inspection: normal to inspection Palpation: soft Skin General skin exam: no rashes or lesions noted Neuro General: moves all extremities and other (RASS -1, follows commands) Extrem General: no clubbing, cyanosis or edema Psych Affect: normal affect Attitude: cooperative Most Recent VS/Results Last Vital Signs Temp 37.1 C 04/26/21 03:05 Pulse 55 L 04/26/21 06:31 Resp 23 04/26/21 06:31 BP 174/81 H 04/26/21 06:31 Pulse Ox 96 04/26/21 06:31 Laboratory Results - last 24 hr 04/25/21 04/26/21 04/26/21 06:18 06:50 06:50 WBC 13.22 H RBC 4.76 Hgb 13.8 Hct 41.5 MCV 87.2 MCH 29.0 MCHC 33.3 RDW 13.2 Plt Count 186 MPV 9.0 Immature Gran % 0.3 Neutrophils % 67.5 Lymphocytes % 25.6 Monocytes % 5.3 Eosinophils % 1.1 Basophils % 0.2 Nucleated RBC % 0 Absolute Neutrophils 8.92 H Absolute Lymphocytes 3.38 Absolute Monocytes 0.70 Absolute Eosinophils 0.15 Absolute Basophils 0.03 PT INR Sodium 146 H 139 Potassium 4.0 3.0 L D Chloride 113 H 102 Carbon Dioxide 21.4 25.4 Anion Gap 11.6 H 11.6 H BUN 15 10 Creatinine 1.2 H 0.8 Estimated GFR/1.73 m2 44.41 >= 60.00 Glucose 81 154 H Calcium 8.7 8.4 L Total Bilirubin 0.6 0.6 Conjugated Bilirubin AST 931 H 423 H ALT 819 H 756 H Alkaline Phosphatase 79 72 Total Protein 6.3 L 6.3 L Albumin 3.1 L 2.7 L 04/26/21 04/26/21 06:50 06:50 WBC RBC Hgb Hct MCV MCH MCHC RDW Plt Count MPV Immature Gran % Neutrophils % Lymphocytes % Monocytes % Eosinophils % Basophils % Nucleated RBC % Absolute Neutrophils Absolute Lymphocytes Absolute Monocytes Absolute Eosinophils Absolute Basophils PT 11.5 H INR 1.1 Sodium Potassium Chloride Carbon Dioxide Anion Gap BUN Creatinine Estimated GFR/1.73 m2 Glucose Calcium Total Bilirubin 0.7 Conjugated Bilirubin 0.1 AST 431 H ALT 780 H Alkaline Phosphatase 72 Total Protein 6.3 L Albumin 2.8 L Review of Systems Unobtainable due to endotracheal tube and Unobtainable due to mental condition
[2021-04-26] MEDS: Pantoprazole 40 MG VIAL IVP (10:40)
[2021-04-26 10:47] LABS: Magnesium 1.5 mg/dL (1.8-2.4); PHOSPHORUS < 2.0 mg/dL (2.6-4.7)
--- NOTE | 2021-04-26 12:42 | NUR.NOTE ---
PT extubated at approximately 1115 AM This YEAST [employer]ER was in the room shortly after RN and MD left and gave her AM care. Patient observation order on hold. Waiting for it to be re-started. I will be here sitting as a CPSO and will document once the order is re-started. Nursing Note:
[2021-04-26] MEDS: cefTRIAXone 2 GM/50 ML BAG IVPB (13:23)
--- NOTE | 2021-04-26 14:00 | NUR.NOTE ---
PT communicating with minimal words and expressions at the moment. PT does have questions that she wrote to me on a white board, Who found me? Where's my therapy dog? then PT wrote down [facility] and when I asked if she was under the care of [facility], she nodded yes. I told her I would have care management paged so they could better answer her questions. Nursing Note:
--- NOTE | 2021-04-26 14:45 | RT.EKG_ITS ---
APPROVED REPORT Exam: Resting ECG Reason for Exam: chest pain Patient Location: I HR:140 bpm ECG Measurements Heart Rate 140 AXIS [place] [id number] P [id number] QRSd 106 QRS 26 QT 305 T 221 QTc 466 Conclusion Atrial fibrillation...? atrial activity Repolarization abnormality, prob rate related...ST dep, T neg, tachycardia
[2021-04-26] MEDS: Metoprolol 5 MG/5 ML VIAL IVP ×3 (15:05→15:25)
[2021-04-26] MEDS: Normal Saline Flush 10 ML SYR IVP ×2 (15:09→16:25)
[2021-04-26] MEDS: dilTIAZem 25 MG/5 ML VIAL 20 MG IVP (15:40)
[2021-04-26] MEDS: dilTIAZem 125 MG in Normal Saline 100 ML IV (15:45)
[2021-04-26 16:03] LABS: Troponin I < 0.05 ng/mL (<0.06)
[2021-04-26] MEDS: Normal Saline 500 ML 30 ML IV (16:24)
[2021-04-26] MEDS: POTASSIUM CHLORIDE 20 MEQ/100 ML BAG 50 MEQ IVPB ×2 (16:45→18:59)
[2021-04-26 19:36] LABS: Troponin I < 0.05 ng/mL (<0.06)
[2021-04-26] MEDS: MAGNESIUM SULFATE 4 GM/100 ML BAG IVPB (21:59)
[2021-04-26] MEDS: Enoxaparin 100 MG/ML SYR 90 MG SC (21:59)
[2021-04-26 22:07] LABS: ALT 560 U/L (14-59); AST 205 U/L (15-37)
[2021-04-26 22:13] LABS: Acetaminophen 2 ug/mL (10-30)
[2021-04-26 23:26] LABS: Potassium 3.1 mmol/L (3.5-5.1)
[2021-04-26 23:37] LABS: Troponin I < 0.05 ng/mL (<0.06)
[2021-04-27] VITALS (43 sets, daily range): BP systolic 99–128; BP diastolic 46–93; PULSE 51–111; RESP 14–25; TEMP 34–37.1; O2SAT 88–98
[2021-04-27] MEDS: dilTIAZem 125 MG in Normal Saline 100 ML 15 MG IV (00:31)
[2021-04-27] MEDS: metroNIDAZOLE 500 MG/100 ML BAG 100 MG IVPB (03:22)
[2021-04-27 06:51] LABS: Abs Immature Grans 0.08 10^3/uL (0.0-0.06); Absolute Monocyte Count 0.66 10^3/uL (0.1-0.8); Basophils % 0.2; HCT 41.5 % (36.0-46.0); HGB 14.2 g/dL (11.2-15.7); Immature Grans % 0.6; Lymphocytes % 7.7; MCH 29.3 pg (27.0-33.0); MCHC 34.2 % (32.0-36.0); MCV 85.6 fL (80-95); MPV 9.6 fL (8.0-11.0); Monocytes % 5.1; Neutrophils % 86.4; Nucleated RBC 0 %; Platelet Count 234 10^3/uL (130-400); RBC 4.85 10^6/uL (3.93-5.22); RDW 13.1 % (11.7-14.6); RDW-SD 40.5 fL; WBC 12.96 10^3/uL (4.4-10.8)
[2021-04-27 06:56] LABS: Absolute Basophil Count 0.03 10^3/uL (0.0-0.2)
[2021-04-27 07:10] LABS: ALT 537 U/L (14-59); AST 150 U/L (15-37); Albumin 2.8 g/dL (3.4-5.0); Alkaline Phosphatase 72 U/L (46-116); Anion Gap 10.5 mmol/L (3-11); BUN 9 mg/dL (7-18); Bilirubin, Total 0.5 mg/dL (0.2-1.0); CO2 25.5 mmol/L (21.0-32.0); CREATININE 0.6 mg/dL (0.55-1.02); Chloride 106 mmol/L (98-107); Glucose 134 mg/dL (74-106); Sodium 142 mmol/L (136-145); Total Protein 6.5 g/dL (6.4-8.2)
[2021-04-27 08:17] LABS: Creatine Kinase 291 U/L (26-192); Magnesium 2.4 mg/dL (1.8-2.4)
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
[2021-04-27] MEDS: Normal Saline Flush 10 ML SYR IVP ×4 (08:30→20:19)
[2021-04-27] MEDS: POTASSIUM CHLORIDE 20 MEQ/100 ML BAG 50 MEQ IVPB ×2 (08:35→11:16)
[2021-04-27] MEDS: Potassium Chloride 20 MEQ TABCR 40 MEQ PO (08:39)
[2021-04-27] MEDS: Enoxaparin 100 MG/ML SYR 90 MG SC ×2 (08:42→19:50)
[2021-04-27] MEDS: VANCOMYCIN/WATER (PEG) 1.5 GM/300 ML BAG IVPB (08:50)
--- NOTE | 2021-04-27 09:53 | PUCC_ITS ---
General Date of Service Date of service: 04/27/21 Time of Service: 07:15 Reason for Admission to ICU: Polysubstance overdose, hypoxic respiratory failure, inability to protect airway Assessment and Plan Assessment and plan (1) Aspiration pneumonia: Status: Suspected Qualifiers: Aspiration pneumonia type: unspecified Laterality: left Lung location: lower lobe of lung Qualified Code(s): J69.0 - Pneumonitis due to inhalation of food and vomit (2) Acute kidney injury (nontraumatic): Status: Resolved (3) Polysubstance overdose: Status: Acute Qualifiers: Encounter type: initial encounter Injury intent: intentional self-harm Qualified Code(s): T50.902A - Poisoning by unspecified drugs, medicaments and biological substances, intentional self-harm, initial encounter (4) Depressive disorder: Status: Chronic (5) Leukocytosis: Status: Acute Qualifiers: Leukocytosis type: unspecified Qualified Code(s): D72.829 - Elevated white blood cell count, unspecified (6) Obstructive sleep apnea: Status: Chronic (7) Transaminitis: Status: Acute Assessment and plan: This is a 70-year-old female who was admitted for polysubstance abuse in the setting of depression and the need for mechanical ventilation due to inability to protect airway. She was extubated 04/27/21 successfully. There was concern for airway edema due to lack of air movement around the tube with cuff deflation. She received one dose of Decadron and on reassessment 4 hours later there was an audible air leak around the cuff so we proceeded with extubation. She was extubated to HFNC for 24 hour prophylaxis given her aspiration PNA. Recommendations Pulmonary: Hypoxic Respiratory Failure - improved, on 2L NC this morning - airway clearance with VibraPEP and IS Cardiac: Bradycardia - no intervention needed Transient A. fib - was placed on dilt drip overnight, early conversion back to sinus - can D/C dilt drip - can use oral meds in future if reoccurrence, but would not treat at the moment - would not give A/C for now, CHADsVasc is 4, but would evaluate need for A/C (A.fib recurrence) as an outpatient with her PCP Transient Hypotension - required levophed briefly, stable now Renal: MIKE, improved - is/p IVF, likely prerenal - recommend checking magnesium and phosphorus levels (orders placed for add on) Hypokalemia - repletion to 4.0 Hypomagnesemia - improved, 2.4 today Hypophosphatemia - phos level added on for today - recommend repletion to 4 - recommend daily phos - patient was NPO for day - watch for refeeding syndorme I&O: Intake & Output 04/24/21 04/25/21 04/26/21 04/27/21 23:59 23:59 23:59 23:59 Intake Total 3093.416 / 3093.416 1489.510 / 0529.771 8340.403 / 2872.403 317.25 / 317.25 Output Total 1200 / 1200 1600 / 1600 5400 / 5400 1400 / 1400 Balance 1893.416 / 1893.416 -110.490 / -110.490 -2527.597 / -2527.597 -1082.75 / -1082.75 Weight 82.6 kg 89.9 kg 88.4 kg Daily Fluid Goal:: Even GI Nutrition: OK for diet Transaminitis - likely in the setting of overdose and hypotension - f/u hepatitis panel - abdominal ultrasound shows a gallbladder that is edematous, normal CBD, mild hepatomegaly and a hyperechoic focus with recommendation for MRI - can consider a HIDA scan, but my suspicion is quite low (not an obstructive pattern) and her transaminases are improving - HIV negative in 2018 - s/p IV NAC protocol Infectious Disease: Staph Aureus Aspiration Pneumonia - agree with adding vancomycin to ceftriaxone given sputum culture - plan on narrowing antibiotics with resistance data returning - no need to cover for anaerobic bacteria - would discontinue Flagyl - airway clearance with frequent suctioning - agree with obtaining blood cultures given sputum results Hematologic: Leukocytosis - reactive vs due to aspiration pneumonia Neurologic: Polysubstance overdose - normal mental status currently - continue sitter - hold all home psych meds for now - psych eval once medically cleared Pain/Sedation - ok for Tylenol as needed - 2g daily maximum Endocrine: No acute concerns Lines: PIV Can discontinue Cabrera Prophylaxis: Can discontinue Protonix - not on home PPI On Lovenox full therapeutic dose - would change this to ppx dosing Code Status: Resuscitation Status Full Code Subjective Critical and life-threatening events over the past 24 hours: Sun is doing well this morning. She was sleeping without her high flow and on room air was saturating low 90's and high 80's. I placed her on 2L NC and her sats gabriella. Her sputum culture returned with Staph aureus - cultures pending. Dr. Hernandez ordered blood cultures for today. Her secretions have improved with antibiotics. Sun is awake and alert today. She is tearful and wants to go home to see her dog. I discussed with her why she has to stay. She did say she did mean to kill herself with the overdose. Although she says she will not do it again and she is embarrassed, I told her she will need psych evaluation and that she may need to stay in a facility for some time. Exam Const General: no acute distress Nutritional Appearance: well nourished [facility] Head: normocephalic Ears: external ears normal and no periauricular adenopathy General nose exam: nasal mucous membranes and turbinates normal Face and sinus: sinuses nontender Mouth: oropharynx normal and mucous membranes dry Eyes General: appearance normal, both eyes and all related structures Pupils: PERRL Neck Neck: normal visual inspection and no lymphadenopathy Chest Chest: normal inspection of the chest Resp Effort & Inspection: normal respiratory effort Auscultation: clear to auscultation bilaterally, no rales, no rhonchi and no wheezes Cardio Rate: regular rate Rhythm: regular rhythm Heart Sounds: S1 normal, S2 normal and no murmurs Pulses: radial pulses present bilaterally GI Inspection: normal to inspection Palpation: soft Skin General skin exam: no rashes or lesions noted Neuro General: patient alert, patient awake, patient oriented x3 and moves all extremities Extrem General: no clubbing, cyanosis or edema Psych Affect: normal affect Attitude: cooperative Most Recent VS/Results Last Vital Signs Temp 36.6 C 04/27/21 03:47 Pulse 54 L 04/27/21 05:01 Resp 23 04/27/21 05:01 BP 110/63 04/27/21 05:01 Pulse Ox 93 04/27/21 05:01 Laboratory Results - last 24 hr 04/26/21 04/26/21 04/26/21 06:50 15:18 19:10 WBC RBC Hgb Hct MCV MCH MCHC RDW Plt Count MPV Immature Gran % Neutrophils % Lymphocytes % Monocytes % Eosinophils % Basophils % Nucleated RBC % Absolute Neutrophils Absolute Lymphocytes Absolute Monocytes Absolute Eosinophils Absolute Basophils Sodium Potassium Chloride Carbon Dioxide Anion Gap BUN Creatinine Estimated GFR/1.73 m2 Glucose Calcium Phosphorus < 2.0 L Magnesium 1.5 L Total Bilirubin 0.7 Conjugated Bilirubin 0.1 AST 431 H ALT 780 H Alkaline Phosphatase 72 Creatine Kinase Troponin I < 0.05 < 0.05 Total Protein 6.3 L Albumin 2.8 L Acetaminophen 04/26/21 04/26/21 04/26/21 20:45 21:00 23:00 WBC RBC Hgb Hct MCV MCH MCHC RDW Plt Count MPV Immature Gran % Neutrophils % Lymphocytes % Monocytes % Eosinophils % Basophils % Nucleated RBC % Absolute Neutrophils Absolute Lymphocytes Absolute Monocytes Absolute Eosinophils Absolute Basophils Sodium Potassium Cancelled Chloride Carbon Dioxide Anion Gap BUN Creatinine Estimated GFR/1.73 m2 Glucose Calcium Phosphorus Magnesium Total Bilirubin Conjugated Bilirubin AST 205 H ALT 560 H Alkaline Phosphatase Creatine Kinase Troponin I < 0.05 Total Protein Albumin Acetaminophen 2 04/26/21 04/27/21 04/27/21 23:00 06:30 06:30 WBC 12.96 H RBC 4.85 Hgb 14.2 Hct 41.5 MCV 85.6 MCH 29.3 MCHC 34.2 RDW 13.1 Plt Count 234 MPV 9.6 Immature Gran % 0.6 Neutrophils % 86.4 Lymphocytes % 7.7 Monocytes % 5.1 Eosinophils % 0.0 Basophils % 0.2 Nucleated RBC % 0 Absolute Neutrophils 11.20 H Absolute Lymphocytes 1.00 L Absolute Monocytes 0.66 Absolute Eosinophils 0.00 Absolute Basophils 0.03 Sodium 142 Potassium 3.1 L 3.0 L Chloride 106 Carbon Dioxide 25.5 Anion Gap 10.5 BUN 9 Creatinine 0.6 Estimated GFR/1.73 m2 >= 60.00 Glucose 134 H Calcium 9.0 Phosphorus Magnesium 2.4 Total Bilirubin 0.5 Conjugated Bilirubin AST 150 H ALT 537 H Alkaline Phosphatase 72 Creatine Kinase 291 H Troponin I Total Protein 6.5 Albumin 2.8 L Acetaminophen Review of Systems Constitutional Constitutional: Reports fatigue and Reports increased appetite Cardiovascular Cardiovascular: Denies chest pain, Denies dyspnea and Denies orthopnea Respiratory Respiratory: Denies pain on inspiration, Denies dyspnea and Denies wheezing Psychiatric Psychiatric: Reports anxiety, Reports depression, Reports hopelessness and Denies suicidal ideation Endocrine Endocrine: Reports fatigue Allergic/Immunologic Allergic/Immunologic: Denies wheezing Time spent with patient Time spent in Critical Care: 35 Time spent in Critical care included: Coordination of care, Chart review, Documenting critically ill care, Time at immediate bedside and Discussing critically ill care with other medical staff
[2021-04-27 10:22] LABS: Hepatitis A Antibody IgM Negative (Negative); Hepatitis B Core Antibody Negative (Negative); Hepatitis B surface Ag Negative (Negative); Hepatitis C Ab w Rflx HCV PCR Negative (Negative)
[2021-04-27] MEDS: Pantoprazole 40 MG VIAL IVP (11:15)
[2021-04-27 11:23] LABS: PHOSPHORUS 2.7 mg/dL (2.6-4.7)
--- NOTE | 2021-04-27 12:12 | IN_ITS ---
PT Notes Visit Reasons: Intentional Overdose Beta Michael/Atypical Tricycl Physical Therapy Inpatient Initial Evaluation Date: 04/27/21 Referring Doctor: Valerie Laureano PT Orders: PT CONSULT Precautions: Fall. Standard. Patient Profile/Admitting Diagnosis: Acute kidney injury (nontraumatic) PMHX: Medical History Acetaminophen overdose Depressive disorder (11/03/13) Drug overdose, multiple drugs Otalgia, unspecified (12/03/12) Suicidal deliberate poisoning Surgical History Colonoscopy - IV Sedation (11/05/15) Dr Nice Status post lumbar laminectomy Social History/Home Situation: Pt currently lives in [facility] housing, needs to complete 3 steps to enter and exit. Equipment Owned/DME: None current, pt reports she has been recommended walker in the past. Subjective: Cleared by nursing to see patient and patient is agreeable to PT. Patient semi-fowlers at time of consult and connected to telemetry as well as supplemental O2, tang. Objective: General Observation: Pt appears lethargic, but conversational upon engagement Mental Status: A&O x3 Pain: Pt reports she is not currently in pain, but has back pain with mobility Vitals: BP: 107/66 supine, 102/60 standing 1min HR: 62 SpO2: 94% on 3L NC at rest ROM: Right Upper Extremity: Shoulder Flexion WFL. Shoulder abduction WFL. Elbow flexion WFL. Wrist flexion WFL. Opening and closing of hand WFL. Left Upper Extremity: Shoulder Flexion WFL. Shoulder abduction WFL. Elbow flexion WFL. Wrist flexion WFL. Opening and closing of hand WFL. Right Lower Extremity: Hip flexion WFL. Hip abduction WFL. Knee flexion WFL. Ankle dorsiflexion WFL. Ankle plantarflexion WFL. Left Lower Extremity: Hip flexion WFL. Hip abduction WFL. Knee flexion WFL. Ankle dorsiflexion WFL. Ankle plantarflexion WFL. Strength: Right Upper Extremity: Shoulder flexors 5/5. Shoulder abductors 4/5. Elbow flexors 4/5. Elbow extensors 4/5. 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 Left Upper Extremity: Shoulder flexors 5/5. Shoulder abductors 4/5. Elbow flexors 4/5. Elbow extensors 4/5. 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 Right Lower Extremity: Hip flexors 4/5. Hip abductors 4/5. Knee flexors 4/5. Knee extensors 4/5. Ankle dorsiflexors 5/5. Ankle plantarflexors 4/5. Left Lower Extremity: Hip flexors 4/5. Hip abductors 4/5. Knee flexors 4/5. Knee extensors 4/5. Ankle dorsiflexors 5/5. Ankle plantarflexors 5/5. Sensation: Intact as to pain and pressure on bilateral lower extremities. Bed Mobility/Transfers: Rolling: MS Supine to sit: Min contact assist x1 Sit to supine: Min contact assist x1 Sit to stand: Min contact assist x1 Stand to sit: Min contact assist x1 Bed to chair: Min contact assist x1 with use of FWW, pt demonstrates desaturation to SpO2 of 85% on 3L NC during transfer Chair to bed: Min contact assist x1 with use of FWW, pt demonstrates desaturation to SpO2 of 85% on 3L NC during transfer Balance: Static Sitting: WNL Dynamic Sitting: WNL, centers following perturbation Static Standing: Limited - pt requires FWW Dynamic Standing: Limited - pt requires FWW Special Tests: Mobility Limitations Standardized Measure [facility] AM-PAC 6 clicks Basic Mobility Inpatient Short Form: Raw Score: 17 CMS Score: 51% Informed Consent/Education: Patient instructed in purpose of PT consult and plan of care. Assessment: Patient presents with clinical signs and symptoms consistent with current/admitting diagnoses that have resulted to mobility limitations, gait instability, generalized weakness, and impairment of motor control as demonstrated by the following impairment level findings: 1. Decreased strength to UE and LE major muscle groups 2. Impaired sitting/standing balance 3. Impaired activity tolerance Impairments are contributing to the following functional limitations: 1. Increased dependence with transfers 2. Inability to safely ambulate without assistive device and physical assistance 3. Increase completion time for mobility ADL performance 4. Increased fall risk 5. Inability to negotiate steps alone safely Patient is assessed as a high complexity based on the following: History: 70 year old female identifying person with impairment level findings, functional limitations, and past medical history as indicated above. Examination: Demonstrable impairment in strength, balance, and mobility level with underlying impairments and functional limitations as documented above. Presentation: Pt presents with limitations in function mobility requiring further physical therapy treatment prior to safe discharge, from a mobility perspective. Decision Making: low complexity Goals: Goals x1 week 1. Supine-Sit: independent 2. Sit-Supine: independent 3. Sit-Stand: independent 4. Stand-Sit: independent 5. Bed-Chair: independent 6. Chair-Bed: independent 7. Independent gait on level surface with use of least restrictive device for at least 50 feet without report of pain nor dyspnea 8. Independent stair negotiation while holding onto bilateral rails for at least 3 steps without report of pain nor dyspnea 9. Independent with home exercise program 10. Good static and dynamic standing balance/tolerance Plan of Care/Treatment Plan: 1-2x/day, 7 days/week x 1 week. Plan of care has been reviewed with the [facility]LE [facility]OWER providing the service under Physical Therapy direction. Initiate Physical Therapy intervention for strengthening, bed mobility, transfers, gait, stairs, balance training, and use of assistive device. DISCHARGE RECOMMENDATIONS: JJ vs home with HHPT services considering pt's desaturation with mobilization TREATMENT CODE/TIME: (25 minutes), 79129 Thank you for the opportunity to participate in the care of this patient.
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
[2021-04-27] MEDS: cefTRIAXone 2 GM/50 ML BAG IVPB (13:19)
--- NOTE | 2021-04-27 16:15 | PHA.REVIEW ---
Pharmacy Admission Review - Admission Clinical Review (Last Reviewed 04/23/21 @ 23:30 by Mani Beck) Discharge planning issues (Acute) Hypokalemia (Acute) Hypoxia (Acute) Transaminitis (Acute) Leukocytosis (Acute) DVT prophylaxis (Acute) Polysubstance overdose (Acute) Penicillins Allergy (Severe, Verified 04/12/21 12:31) HIVES, CANNOT BREATH benzonatate Allergy (Intermediate, Verified 04/12/21 12:31) itchy hives head to toe,vomiting NSAIDS (Non-Steroidal Anti-Inflamma Adverse Reaction (Severe, Verified 04/12/21 12:31) GI DISTRESS methadone Adverse Reaction (Unknown, Verified 04/12/21 12:31) SEDATION ramelteon [From Rozerem] Adverse Reaction (Unknown, Verified 04/12/21 12:31) activation,worse sleep tramadol Adverse Reaction (Unknown, Verified 04/12/21 12:31) NAUSEA, VOMITING, DIARRHEA amitriptyline Adverse Reaction (Verified 04/12/21 12:31) insomnia, next day sedation cyproheptadine Adverse Reaction (Verified 04/12/21 12:31) Nightmares quetiapine [From Seroquel] Adverse Reaction (Verified 04/12/21 12:31) insomnia, poor efficacy Fresh Fruits Allergy (Severe, Uncoded 04/12/21 12:31) Swelling/Edema Resuscitation Status Full Code Height 5 ft 1 in Weight 88.4 kg - Renal Dosing Renal Dosing: BUN 9 mg/dL (7-18) 04/27/21 06:30 Creatinine 0.6 mg/dL (0.55-1.02) 04/27/21 06:30 Medications needing adjustments: Reviewed List of meds needing interventions: eCrCl using adjusted BW is 88.1 ml/min - Anticoagulation Anticoagulation: Hgb 14.2 g/dL (11.2-15.7) 04/27/21 06:30 Hct 41.5 % (36.0-46.0) 04/27/21 06:30 Plt Count 234 10^3/uL (130-400) 04/27/21 06:30 INR 1.1 (0.9-1.1) 04/26/21 06:50 Creatinine 0.6 mg/dL (0.55-1.02) 04/27/21 06:30 Therapeutic Anticoagulation: Reviewed Medications: Enoxaparin - Opiate Usage Evaluate Pain Scale/Pains Meds: N/A - Relevant Labs Sodium 142 mmol/L (136-145) 04/27/21 06:30 Potassium 3.0 mmol/L (3.5-5.1) L 04/27/21 06:30 Chloride 106 mmol/L (98-107) 04/27/21 06:30 Phosphorus 2.7 mg/dL (2.6-4.7) 04/27/21 06:30 Magnesium 2.4 mg/dL (1.8-2.4) 04/27/21 06:30 Electrolytes, C-Reactive P, ESR: Reviewed - DM Control DM Control: Glucose 134 mg/dL (74-106) H 04/27/21 06:30 Insulin Dosing: N/A - Heart Failure/NC Heart Failure/NC: Troponin I < 0.05 ng/mL (<0.06) 04/26/21 23:00 EF%, IZZY's, B-Blockers, Diuretics: Reviewed - BP Control BP Control: Blood Pressure [Right Arm] 124/73 Blood Pressure [Right Arm] 113/77 Blood Pressure 124/73 Blood Pressure 102/60 Blood Pressure 107/66 Blood Pressure 113/67 Blood Pressure 104/46 Blood Pressure 115/58 Blood Pressure 115/93 Blood Pressure 128/82 Blood Pressure 110/63 If elevated: Reviewed - Qtc Review If Elevated: Reviewed - IV to PO Switch IV Medications: Reviewed - Home Meds Home Med List reviewed: Intervened Relevent Home Meds Not ordered & why?: most are not ordered d/t intentional polysubstance overdose; confirmed all, dc'd duplicated, corrected sigs - Current meds Current Medication Order Review: Reviewed (ceftriaxone + vancomycin for aspiration PNA; fully anticoagulated due to new onset afib, will need DOAC on dc, dilt gtt dc'd as she converted ON, holding on oral tx for now due to low HR)
--- NOTE | 2021-04-27 16:37 | NUR.NOTE ---
After reviewing safety plan with CM, patient was allowed some of her belongings. She requested her phone and purse. Ayleen ADAMSON and myself went through the patient's purse prior to giving it to her for safety reasons. Removed from her purse was an empty Rx bottle, and Rx bottle with no label, two pairs of nail clippers, three packs of cigarets, a load out person, a couple of tums and a broken loose cigaret. Patient was advised these items were placed in her belonging bag located in the nursing area. Pt was agreeable to this plan.
[2021-04-27] MEDS: VANCOMYCIN/WATER (PEG) 1 GM/200 ML BAG IV (20:19)
[2021-04-28] VITALS (23 sets, daily range): BP systolic 128–147; BP diastolic 67–85; PULSE 55–74; RESP 14–26; TEMP 35.7–35.8; O2SAT 88–96
--- NOTE | 2021-04-28 | DI.US_ITS ---
Exam(s) US RENAL EXAM: US RENAL CLINICAL HISTORY: hematuria, h/o nephrolithiasis. TECHNIQUE: Aragon scale, color and spectral Doppler were used. COMPARISON: No exams were available for comparison FINDINGS: Renal size in cm: Right: 10. Left: 12.5. Echogenicity: Normal. Hydronephrosis: No. Cyst or mass: No. Nephrolithiasis: There is a 4 mm echogenic shadowing focus in the lower pole of the right kidney cons istent with a nonobstructing stone. Other findings: None. Bladder:The bladder was empty prior to the examination. Ureteral jets: Right: Not visualized on this examination. Left: Not visualized on this examination. Prevoid vol:0 cc Renal color flow: Symmetric and within normal limits. IMPRESSION: 1. Right nephrolithiasis. No hydronephrosis. 2. Bladder cannot be evaluated sonographically as the bladder was empty during the examination. DATA REPOSITORY:
[2021-04-28 07:01] LABS: Abs Immature Grans 0.09 10^3/uL (0.0-0.06); Absolute Basophil Count 0.01 10^3/uL (0.0-0.2); Absolute Lymphocyte Count 1.99 10^3/uL (1.2-3.4); Absolute Monocyte Count 0.72 10^3/uL (0.1-0.8); Basophils % 0.1; HCT 41.9 % (36.0-46.0); HGB 14.2 g/dL (11.2-15.7); Immature Grans % 0.7; Lymphocytes % 16.1; MCH 29.2 pg (27.0-33.0); MCHC 33.9 % (32.0-36.0); MCV 86.2 fL (80-95); MPV 9.4 fL (8.0-11.0); Monocytes % 5.8; Neutrophils % 77.3; Nucleated RBC 0 %; Platelet Count 273 10^3/uL (130-400); RBC 4.86 10^6/uL (3.93-5.22); RDW 13.3 % (11.7-14.6); WBC 12.34 10^3/uL (4.4-10.8)
[2021-04-28 07:05] LABS: Absolute Neutrophil Count 9.54 10^3/uL (1.2-6.7)
[2021-04-28 07:17] LABS: ALT 349 U/L (14-59); AST 56 U/L (15-37); Albumin 2.9 g/dL (3.4-5.0); Alkaline Phosphatase 78 U/L (46-116); Anion Gap 7.5 mmol/L (3-11); BUN 10 mg/dL (7-18); Bilirubin, Direct 0.1 mg/dL (0.0-0.2); Bilirubin, Total 0.5 mg/dL (0.2-1.0); CO2 27.5 mmol/L (21.0-32.0); CREATININE 0.7 mg/dL (0.55-1.02); Calcium 8.8 mg/dL (8.5-10.1); Chloride 108 mmol/L (98-107); Glucose 104 mg/dL (74-106); PHOSPHORUS 2.7 mg/dL (2.6-4.7); Potassium 3.1 mmol/L (3.5-5.1); Sodium 143 mmol/L (136-145); Total Protein 6.5 g/dL (6.4-8.2)
[2021-04-28] MEDS: Enoxaparin 100 MG/ML SYR 90 MG SC ×2 (07:19→22:00)
[2021-04-28] MEDS: VANCOMYCIN/WATER (PEG) 1 GM/200 ML BAG IV (07:20)
[2021-04-28] MEDS: Normal Saline Flush 10 ML SYR IVP ×2 (07:21→09:56)
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
[2021-04-28] MEDS: Potassium Chloride 20 MEQ TABCR 40 MEQ PO ×2 (09:55→22:04)
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
[2021-04-28] MEDS: Pantoprazole 40 MG VIAL IVP (09:56)
[2021-04-28] MEDS: Cefpodoxime 200 MG TAB PO (14:05)
--- NOTE | 2021-04-28 15:28 | PT.INTREAT ---
PT Notes Visit Reasons: Intentional Overdose Beta Michael/Atypical Tricycl Inpatient Physical Therapy Treatment Note [facility] Date: 04/28/21 SUBJECTIVE: My life is a mess right now. I think I need to go back on my antidepressant meds. OBJECTIVE: [] BED MOBILITY/TRANSFERS Supine-sit: SBA Sit-stand:CGA Stand-sit: CGA Bed-Chair: CGA GAIT Assistive Device: FWW Weight bearing: FWB Assist: CGA Distance: 5 steps THEREX: global LE strengthening while seated in chair. See flowsheet for details ASSESSMENT: tolerated session well. Encouraged her to press into walker when back hurts in order to alleviate pressure. She reported this seemed to help. PLAN: will continue to progress following PT POC. TREATMENT CODE/TIME: 20 min. [id number]
[2021-04-28 16:37] LABS: Bilirubin Negative (Negative); Blood Large (Negative); Clarity Cloudy (Clear); Glucose Negative (Negative); Ketones Negative (Negative); Leukocyte Esterase Negative (Negative); Nitrite Negative (Negative); Specific Gravity >= 1.030 (1.005-1.025); Urobilinogen 0.2 EU/dL (Up TO 0.2); pH 5.5 (5-8)
--- NOTE | 2021-04-28 16:40 | DI.RAD_ITS ---
Exam(s) XR ABDOMEN FLAT PLATE EXAM: 2D digital imaging was performed. CLINICAL HISTORY: nephrolithiasis. COMPARISON: CR XR PORTABLE CHEST AP from 04/25/2021 CR XR PORTABLE CHEST AP from 04/25/2021 TECHNIQUE: Supine views of the abdomen performed. Two views were obtained. FINDINGS: BOWEL GAS PATTERN: Nondistended. There is a moderate amount of retained stool throughout the colon. CALCIFICATIONS: No radiopaque calcifications. The renal shadows are largely obscured by overlying bow el. There are few calcifications in the right pelvis likely reflecting phleboliths. OSSEOUS STRUCTURES: Normal for age. OTHER FINDINGS: There is a small right pleural effusion and right basilar atelectasis. IMPRESSION: 1. Nonobstructive bowel gas pattern. 2. No definite urinary tract calculi. Large portions of the kidneys are obscured by overlying bowel. 3. Small right pleural effusion and right basilar atelectasis. DATA REPOSITORY: RADIATION DOSE DELIVERED:
[2021-04-28 16:43] LABS: RBC >50 HPF (0-2)
[2021-04-28 16:44] LABS: C & S Indicated? Yes
--- NOTE | 2021-04-28 18:47 | W.INMHPGNOTE ---
Date of service: 04/28/21 Time of Service: 15:30 Mental Health Crisis Note Presenting Issue How did you arrive at the ED and why did you come: Client presented to [facility] emergency department via EMS 04.23.21 for intentional polysubstance overdose of prescribed medications (lorazepam, oxycodone with APAP, venlafaxine, metoprolol succinate). Status is stable and she is seen for assessment via telehealth following medical clearance. Precipitating Factors The client is seen via telehealth at [facility] ICU. She is fully alert and oriented to time, person, place and situation with no evident memory deficits. She appears dispositionally stable, polite, remorseful, and engages openly with good eye contact. Speech is unpressured, normal rate and tone. She reports mood as ashamed with some emotional lability when recounting hospital admission. Thought process appears logical and coherent with no loose associations. No evidence or report of delusions of hallucinations. She reports that on Sunday she started to feel isolated and overwhelmed and impulsively took all of her medications while arranging them in a pill container. She shares that this action was done without thinking or plan and states I tried to take my life by taking all my medications. I don't know why I did that and I'm ashamed. She denies current SI/HI/SIB, intent or plan. She shares difficulties with emergency housing arrangement and feeling increasingly isolated due to restrictions of no visitors. Client expresses remorse for recent actions and states that she does not want to cause any pain or suffering for her family. She identifies wanting to be alive for her family, specifically her grandsons. She is currently not interested in psychiatric in-patient referral and would prefer discharging home with additional supports including a counseling referral. Disposition BEHAVIOR: Appropriate EYE CONTACT: Good MOOD: Ashamed AFFECT: Euthymic / tearful APPETITE: No reported issues. SLEEP(trouble falling/staying asleep: No reported issues. Plan Per consultation with attending medical provider Dr. Lori Hernandez, the client will remain at [facility] an additional night for medical observation and to allow additional time for the client's [facility] medication prescriber to provide consult on appropriate discharge medications. [facility] will be supporting the client going forward with possible additional residential options or assisting with transition to independent living given that client isolation is a barrier. An in-house referral for counseling will be submitted and the client will be seen by [facility] prior to discharge tomorrow 04.29.21. No additional services recommended at this time. Signature Clinician's Name/Title: Srinivasa Mendoza [facility] clinician / ROSAMARIAHP
[2021-04-28] MEDS: Docusate Sodium 100 MG CAP PO (22:04)
[2021-04-28] MEDS: Gabapentin 400 MG CAP 1200 MG PO (22:04)
[2021-04-29] VITALS (30 sets, daily range): BP systolic 118–157; BP diastolic 60–88; PULSE 52–89; RESP 12–26; TEMP 35.4–36; O2SAT 90–98
[2021-04-29] MEDS: Cefpodoxime 200 MG TAB PO ×3 (01:19→23:47)
[2021-04-29 06:50] LABS: Abs Immature Grans 0.03 10^3/uL (0.0-0.06); Absolute Basophil Count 0.02 10^3/uL (0.0-0.2); Absolute Eosinophil Count 0.13 10^3/uL (0.0-0.7); Absolute Lymphocyte Count 4.72 10^3/uL (1.2-3.4); Absolute Monocyte Count 0.69 10^3/uL (0.1-0.8); Basophils % 0.2; Eosinophils % 1.2; HCT 41.7 % (36.0-46.0); HGB 14.1 g/dL (11.2-15.7); Immature Grans % 0.3; MCH 29.6 pg (27.0-33.0); MCHC 33.8 % (32.0-36.0); MCV 87.6 fL (80-95); Monocytes % 6.6; Neutrophils % 46.7; Nucleated RBC 0 %; Platelet Count 275 10^3/uL (130-400); RBC 4.76 10^6/uL (3.93-5.22); RDW 13.7 % (11.7-14.6); RDW-SD 44.3 fL; WBC 10.49 10^3/uL (4.4-10.8)
[2021-04-29 07:14] LABS: Anion Gap 8.3 mmol/L (3-11); BUN 14 mg/dL (7-18); CO2 26.7 mmol/L (21.0-32.0); CREATININE 0.7 mg/dL (0.55-1.02); Calcium 8.9 mg/dL (8.5-10.1); Chloride 109 mmol/L (98-107); Glucose 79 mg/dL (74-106); Magnesium 1.9 mg/dL (1.8-2.4); Potassium 3.7 mmol/L (3.5-5.1); Sodium 144 mmol/L (136-145)
[2021-04-29 07:55] LABS: ALT 238 U/L (14-59); AST 36 U/L (15-37); Albumin 2.9 g/dL (3.4-5.0); Alkaline Phosphatase 82 U/L (46-116); Bilirubin, Direct 0.1 mg/dL (0.0-0.2); Bilirubin, Total 0.4 mg/dL (0.2-1.0); Total Protein 5.8 g/dL (6.4-8.2)
[2021-04-29] MEDS: Potassium Chloride 20 MEQ TABCR 40 MEQ PO (08:04)
[2021-04-29] MEDS: Enoxaparin 100 MG/ML SYR 90 MG SC (08:04)
[2021-04-29] MEDS: Docusate Sodium 100 MG CAP PO ×2 (08:04→21:18)
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
[2021-04-29] MEDS: Metoprolol CR 25 MG TABCR PO (08:31)
--- NOTE | 2021-04-29 08:59 | INDS_ITS ---
Date of service: 05/02/21 Time of Service: 08:59 PT Notes Visit Reasons: Intentional Overdose Beta Michael/Atypical Tricycl Physical Therapy Inpatient Initial Evaluation Date: 05/02/21 Referring Doctor: Valerie Laureano MD PT Orders: PT CONSULT Precautions: Fall. Standard. Patient Profile/Admitting Diagnosis: Acute kidney injury (nontraumatic) PMHX: Medical History Acetaminophen overdose Depressive disorder (11/03/13) Drug overdose, multiple drugs Otalgia, unspecified (12/03/12) Suicidal deliberate poisoning Surgical History Colonoscopy - IV Sedation (11/05/15) Dr Nice Status post lumbar laminectomy Social History/Home Situation: Pt currently lives in [facility] housing, needs to complete 3 steps to enter and exit. Equipment Owned/DME: None current, pt reports she has been recommended walker in the past. Subjective: Agreeable to session. Objective: General Observation: Appears to be moving better today Mental Status: Alert and oriented x 4 Pain: Denies ROM: Right Upper Extremity: Shoulder Flexion WFL. Shoulder abduction WFL. Elbow flexion WFL. Wrist flexion WFL. Opening and closing of hand WFL. Left Upper Extremity: Shoulder Flexion WFL. Shoulder abduction WFL. Elbow flexion WFL. Wrist flexion WFL. Opening and closing of hand WFL. Right Lower Extremity: Hip flexion WFL. Hip abduction WFL. Knee flexion WFL. Ankle dorsiflexion WFL. Ankle plantarflexion WFL. Left Lower Extremity: Hip flexion WFL. Hip abduction WFL. Knee flexion WFL. Ankle dorsiflexion WFL. Ankle plantarflexion WFL. Strength: Right Upper Extremity: Shoulder flexors 5/5. Shoulder abductors 4/5. Elbow flexors 4/5. Elbow extensors 4/5. Parcel Post Officer weak but functional. Left Upper Extremity: Shoulder flexors 5/5. Shoulder abductors 4/5. Elbow flexors 4/5. Elbow extensors 4/5. Parcel Post Officer weak but functional. Right Lower Extremity: Hip flexors 4/5. Hip abductors 4/5. Knee flexors 4/5. Knee extensors 4/5. Ankle dorsiflexors 5/5. Ankle plantarflexors 4/5. Left Lower Extremity: Hip flexors 4/5. Hip abductors 4/5. Knee flexors 4/5. Knee extensors 4/5. Ankle dorsiflexors 5/5. Ankle plantarflexors 5/5. Sensation: Intact as to pain and pressure on bilateral lower extremities. Bed Mobility/Transfers: Rolling: VA Supine to sit: Standby assist Sit to supine: Standby assist Sit to stand: Standby assist Stand to sit: Standby assist Bed to chair: Standby assist Chair to bed: Standby assist Balance: Static Sitting: Normal Dynamic Sitting: Normal Static Standing: Good Dynamic Standing: Fair Assessment: Patient presents with clinical signs and symptoms consistent with current/admitting diagnoses that have resulted to mobility limitations, gait instability, generalized weakness, and impairment of motor control as demonstrated by the following impairment level findings: 1. Decreased strength to UE and LE major muscle groups 2. Impaired sitting/standing balance 3. Impaired activity tolerance Impairments are contributing to the following functional limitations: 1. Inability to safely ambulate without assistive device 2. Increase completion time for mobility ADL performance 3. Inability to negotiate steps alone safely Goals: Goals x1 week 1. Supine-Sit: independent NOT MET 2. Sit-Supine: independent NOT MET 3. Sit-Stand: independent NOT MET 4. Stand-Sit: independent NOT MET 5. Bed-Chair: independent NOT MET 6. Chair-Bed: independent NOT MET 7. Independent gait on level surface with use of least restrictive device for at least 50 feet without report of pain nor dyspnea NOT MET 8. Independent stair negotiation while holding onto bilateral rails for at least 3 steps without report of pain nor dyspnea NOT MET 9. Independent with home exercise program NOT MET 10. Good static and dynamic standing balance/tolerance NOT MET DISCHARGE RECOMMENDATIONS: To Skip today. TREATMENT CODE/TIME: 41385 x 29 minutes beginning at 8:59 AM. Thank you for the opportunity to participate in the care of this patient. Maura Delatorre PT, DPT, CLT [facility] [place], [place]
--- NOTE | 2021-04-29 09:31 | CMDISCH_ITS ---
- If Service Date Differs Date of service: 04/29/21 Time of Service: 09:31 LACE Index Scoring Tool - Questions: Length of Stay (in days): 7 - 13 Acuity (Admit via E.D.?): Yes E.D. Visits: 6 - Answers: Total Score: 12 Risk of Readmission: High Risk Care Management Discharge Reason for Hospitalization: Intentional Overdose Beta Michael/Atypical Tricyclic. Discharge Plan: Sun will discharge to [facility] senior living upon discharge; it will be an anonymous placement and [facility] will transport her. Dr. Hernandez and Flaco Tellez will discuss medication management moving forward, prior to discharge. Referral to [facility] completed, and navigators connected with Sun today. Sun contracted for safety with [facility] crisis screener and will follow up with them for support and service connection. Patient/Family Education Needs: Review discharge instructions, discuss Ask Me Three. - MH Services (Omit if N/A) Current MH Services: Internal [facility] (Medication management, increased services; Crisis attachment.)
[2021-04-29] MEDS: Pantoprazole 40 MG VIAL IVP (11:23)
[2021-04-29] MEDS: oxyCODONE 5 MG TAB PO ×2 (11:29→17:13)
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
[2021-04-29] MEDS: Gabapentin 400 MG CAP 1200 MG PO (21:18)
[2021-04-30] VITALS (19 sets, daily range): BP systolic 116–148; BP diastolic 57–84; PULSE 50–64; RESP 14–19; TEMP 35.7–36; O2SAT 94–96
[2021-04-30] MEDS: Docusate Sodium 100 MG CAP PO ×2 (07:35→19:59)
[2021-04-30] MEDS: Metoprolol CR 25 MG TABCR PO (07:35)
[2021-04-30] MEDS: Pantoprazole 40 MG VIAL IVP (09:41)
[2021-04-30] MEDS: oxyCODONE 5 MG TAB PO (09:42)
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
[2021-04-30] MEDS: Cefpodoxime 200 MG TAB PO (12:16)
[2021-04-30] MEDS: HYDROcodone 5/Acetaminophen 325 TAB PO ×2 (14:16→19:58)
--- NOTE | 2021-04-30 15:30 | NUR.NOTE ---
Maintenance called to fix t.v. in patient's room. Patient given a cup of soda and water on ice.Nursing Note:
--- NOTE | 2021-04-30 15:38 | CMPROGNOTE_ITS ---
- If Service Date Differs Date of service: 04/30/21 Time of Service: 15:38 Care Management Progress Note S/O:Sun was sitting up in a chair when KRANTHI came to see her to facilitate a Zoom meeting with MALLORIE Celestin screener. Sun talked about the breakup of her marriage and the struggles she has had for the past few months. She has agreed to go to [facility] on Sunday for treatment of her depression and suicidal ideation. After conclusion of the Zoom meeting, Sun asked to speak to KRANTHI. She had questions about [facility] and wanted to know more about the unit and the program they have. She also had questions about logistics such as what clothes and supplies she might need. KRANTHI was able to answer her questions and offered to meet with her again if she had additional concerns. A: 70 year old female admitted to [facility] 04/23/21 for intentional overdose P: Sun will discharge to [facility] at [facility] on Sunday. She will transport via EMS, coordinated by CM or NS.
--- NOTE | 2021-04-30 16:36 | NUR.NOTE ---
Maintenance is able to repair patient's T.V. much to her satisfaction.Nursing Note:
[2021-04-30] MEDS: Normal Saline Flush 10 ML SYR IVP (16:46)
--- NOTE | 2021-04-30 16:56 | NUR.NOTE ---
3 suction canisters are changed out in patient's room.Nursing Note:
[2021-04-30] MEDS: Polyethylene Glycol 3350 17 GM PACKET PO (17:28)
--- NOTE | 2021-04-30 19:37 | NUR.NOTE ---
Nursing Note: Pt brought from ICU to room 225 @ 2476. Report given to SNOW Kumar. Pt not assessed by this nurse, handoff given to José.
[2021-04-30] MEDS: Gabapentin 400 MG CAP 1200 MG PO (21:16)
[2021-05-01] VITALS (7 sets, daily range): BP systolic 109–147; BP diastolic 67–79; PULSE 51–75; RESP 14–18; TEMP 36.1–36.4; O2SAT 96–99
[2021-05-01] MEDS: Cefpodoxime 200 MG TAB PO ×3 (00:17→23:06)
[2021-05-01] MEDS: LORazepam 0.5 MG TAB PO ×2 (00:22→20:23)
[2021-05-01] MEDS: HYDROcodone 5/Acetaminophen 325 TAB PO ×3 (08:09→20:23)
[2021-05-01] MEDS: Tamsulosin 0.4 MG CAPCR PO (08:10)
[2021-05-01] MEDS: Docusate Sodium 100 MG CAP PO ×2 (08:10→20:24)
[2021-05-01] MEDS: Metoprolol CR 25 MG TABCR PO (08:10)
[2021-05-01 09:39] LABS: HCT 46.1 % (36.0-46.0); MCH 29.1 pg (27.0-33.0); MCHC 32.5 % (32.0-36.0); MCV 89.3 fL (80-95); Platelet Count 267 10^3/uL (130-400); RBC 5.16 10^6/uL (3.93-5.22); RDW-SD 45.5 fL; WBC 10.42 10^3/uL (4.4-10.8)
[2021-05-01 09:56] LABS: ALT 163 U/L (14-59); AST 50 U/L (15-37); Albumin 3.1 g/dL (3.4-5.0); Alkaline Phosphatase 80 U/L (46-116); Anion Gap 9.2 mmol/L (3-11); BUN 20 mg/dL (7-18); Bilirubin, Total 0.3 mg/dL (0.2-1.0); CO2 25.8 mmol/L (21.0-32.0); Calcium 9.2 mg/dL (8.5-10.1); Chloride 105 mmol/L (98-107); Estimated GFR 54.81 (mL/min/1.73m2); Glucose 173 mg/dL (74-106); Potassium 4.3 mmol/L (3.5-5.1); Sodium 140 mmol/L (136-145); Total Protein 6.8 g/dL (6.4-8.2)
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
[2021-05-01] MEDS: Venlafaxine 37.5 MG CAPCR 75 MG PO (10:54)
[2021-05-01] MEDS: Magnesium Citrate 300 ML BTL 150 ML PO (10:54)
[2021-05-01] MEDS: oxyCODONE 5 MG TAB PO (13:26)
--- NOTE | 2021-05-01 19:04 | NUR.NOTE ---
Nursing Note: Pt belonging returned to pt per her request. clothes given. 3 packs of alexia cigarettes with pt belongings. Pt stated throw them away, I don't want them. Nursing asked if she was sure she didn't want to keep them with her locked box of pills for discharge and she was very adamant she wanted the cigarette thrown away in the trash that she was done smoking and did not want to take them with her to avoid any temptation. throw them away and shoed me with her hand. Cigarettes disposed of for Patient.
[2021-05-01] MEDS: Normal Saline Flush 10 ML SYR IVP (20:23)
[2021-05-01] MEDS: Gabapentin 400 MG CAP 1200 MG PO (21:17)
[2021-05-01] MEDS: Zolpidem 5 MG TAB PO (21:17)
[2021-05-02 00:56] VITALS: PULSE 64
[2021-05-02 04:09] VITALS: BP 92/48; PULSE 59; RESP 18; TEMP 35; O2SAT 94
[2021-05-02 07:10] VITALS: BP 96/60; PULSE 60; RESP 16; TEMP 36.3; O2SAT 99
[2021-05-02] MEDS: Metoprolol CR 25 MG TABCR PO (07:44)
[2021-05-02] MEDS: Docusate Sodium 100 MG CAP PO (07:44)
[2021-05-02] MEDS: HYDROcodone 5/Acetaminophen 325 TAB PO ×2 (07:44→13:02)
[2021-05-02] MEDS: Polyethylene Glycol 3350 17 GM PACKET PO (07:44)
[2021-05-02] MEDS: Venlafaxine 37.5 MG CAPCR 75 MG PO (07:44)
[2021-05-02] MEDS: Tamsulosin 0.4 MG CAPCR PO (07:44)
[2021-05-02] MEDS: oxyCODONE 5 MG TAB PO (09:45)
[2021-05-02] MEDS: LORazepam 0.5 MG TAB PO (09:46)
[2021-05-02 09:55] LABS: Source Nasal/Nares
[2021-05-02 10:56] LABS: COVID-19 PCR Negative (Negative)
[2021-05-02] MEDS: Cefpodoxime 200 MG TAB PO (11:33)
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
[2021-05-02 12:02] VITALS: BP 132/70; PULSE 66; RESP 17; TEMP 36.4; O2SAT 95
--- NOTE | 2021-05-02 12:52 | PDOC.CMDIS ---
- If Service Date Differs Date of service: 05/02/21 Time of Service: 12:53 LACE Index Scoring Tool - Questions: Length of Stay (in days): 7 - 13 Acuity (Admit via E.D.?): Yes E.D. Visits: 6 - Answers: Total Score: 12 Risk of Readmission: High Risk Care Management Discharge Reason for Hospitalization: Intentional Overdose Beta Michael/Atypical Tricyclic. Discharge Plan: Sun will transfer to [facility] for continued support and stabilization prior to returning to [facility]. She will transport via [facility], coordinated by this abstract writer. Patient/Family Education Needs: Review of pertinent [facility] program limitations including visitors (limit of one consistent visitor per admission), no electronics permitted but portable phone in individual rooms, group activities, CM provided activity cart items for use at [facility] (comfort blanket, [facility] yvonne bear, stress ball, activity books, coloring with crayons and pencils, journal). Services Needed at Discharge: Transportation ([facility]) - MH Services (Omit if N/A) Current MH Services: Psychiatric Inp (Transfer to [facility]) - Disposition Disposition: Other ([facility] ) Transport via of: EMS
== END 2021-05-02 14:04 | disposition other institution (70) | DRG 917 ==
LOC: ER 22:56 → ICU 04-24 00:16 → MS 04-30 19:11
PROVIDERS: Family Medicine; Internal Medicine; Physician Assistant; Student in an Organized Health Care Education/Training Program; Admitting Provider Family Medicine; Emergency Provider Emergency Medicine; PCP Internal Medicine; Visit Provider Family Medicine
DX: T39.1X2A Poisoning by 4-Aminophenol derivatives, intentional self-harm, initial encounter (principal); N17.0 Acute kidney failure with tubular necrosis; J69.0 Pneumonitis due to inhalation of food and vomit; K72.00 Acute and subacute hepatic failure without coma; T42.4X2A Poisoning by benzodiazepines, intentional self-harm, initial encounter; T44.7X2A Poisoning by beta-adrenoreceptor antagonists, intentional self-harm, initial encounter; T43.212A Poisoning by selective serotonin and norepinephrine reuptake inhibitors, intentional self-harm, initial encounter; R41.82 Altered mental status, unspecified; G47.33 Obstructive sleep apnea (adult) (pediatric); Z91.5 Personal history of self-harm; F32.9 Major depressive disorder, single episode, unspecified; F17.210 Nicotine dependence, cigarettes, uncomplicated; Z91.410 Personal history of adult physical and sexual abuse; E78.00 Pure hypercholesterolemia, unspecified; I95.2 Hypotension due to drugs; Z20.822 Contact with and (suspected) exposure to COVID-19; R74.01 Elevation of levels of liver transaminase levels; R00.1 Bradycardia, unspecified; B95.61 Methicillin susceptible Staphylococcus aureus infection as the cause of diseases classified elsewhere; I48.91 Unspecified atrial fibrillation; R09.02 Hypoxemia; E87.6 Hypokalemia; E83.42 Hypomagnesemia; E83.39 Other disorders of phosphorus metabolism; R31.0 Gross hematuria; N20.0 Calculus of kidney; M48.00 Spinal stenosis, site unspecified; K59.00 Constipation, unspecified
CPT/HCPCS: 31500; 36415; 51702; 76770; 80048; 80053; 80076; 80307; 82550; 82805; 85027; 86704; 86709; 86803; 87040; 87077; 87340; 87635; 93005; 96365; 96366; 96375; 97163; 97530; 99222; 99291; J1650; 36600; 71045; 74018; 76700; 80320; 80329; 81003; 81015; 83735; 84100; 84132; 84443; 84450; 84460; 84484; 85025; 85610; 87070; 87086; 87186; 87205; 93010; 93306; 94002; 94003; 94667; 99223; 99233; 99239; J0132; J1100; J2060; J3010; J3475; J3480; J3490; J7060

== ENCOUNTER 2021-05-16 22:18 | Emergency (ER) | payer MEDICARE, MEDICAID, SELFPAY ==
[2021-05-16] VITALS (8 sets, daily range): BP systolic 115–129; BP diastolic 55–91; PULSE 60–72; RESP 18–23; TEMP 36.1; O2SAT 93–100
--- NOTE | 2021-05-16 22:30 | RT.EKG_ITS ---
APPROVED REPORT Exam: Resting ECG Reason for Exam: heart racing Patient Location: E HR:64 bpm ECG Measurements Heart Rate 64 AXIS KS 154 P 20 QRSd 97 QRS 39 QT 430 T 49 QTc 444 Conclusion Sinus rhythm...normal P axis, V-rate 60- 99. Sinus. No STEMI. I have reviewed and interpreted ECG and agree with software generated interpretation.
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
[2021-05-16] MEDS: LORazepam 2 MG/ML VIAL 1 MG IVP (22:55)
[2021-05-16 23:06] LABS: Abs Immature Grans 0.04 10^3/uL (0.0-0.06); HCT 42.8 % (36.0-46.0); HGB 13.6 g/dL (11.2-15.7); MCH 29.3 pg (27.0-33.0); MCHC 31.8 % (32.0-36.0); MCV 92.2 fL (80-95); MPV 8.7 fL (8.0-11.0); Nucleated RBC 0 %; Platelet Count 404 10^3/uL (130-400); RBC 4.64 10^6/uL (3.93-5.22); RDW 14.3 % (11.7-14.6); RDW-SD 48.2 fL; WBC 11.99 10^3/uL (4.4-10.8)
--- NOTE | 2021-05-16 23:15 | DI.RAD_ITS ---
Exam(s) XR CHEST 2V PA LATERAL EXAM: XR CHEST 2V PA LATERAL CLINICAL HISTORY: chest pressure. TECHNIQUE: 2D digital imaging was performed. COMPARISON: CR XR PORTABLE CHEST AP from 04/25/2021 FINDINGS: Heart size is normal. The mediastinum is not widened. There is platelike atelectasis in both lung bases. No pleural effusions. There is lucency in the ri ght upper lung field, possibly pneumothorax. IMPRESSION: There is platelike atelectasis in both lung bases. There is also lucency in the right upper lung whi ch is possibly artifactual but cannot exclude pneumothorax. Appropriate follow-up recommended. DATA REPOSITORY: RADIATION DOSE DELIVERED:
[2021-05-16 23:22] LABS: Absolute Eosinophil Count 0.12 10^3/uL (0.0-0.7); Absolute Lymphocyte Count 5.64 10^3/uL (1.2-3.4); Absolute Monocyte Count 0.48 10^3/uL (0.1-0.8); Absolute Neutrophil Count 5.52 10^3/uL (1.2-6.7); Diff Comment Manual Differential; RBC Morphology Normal
[2021-05-16 23:23] LABS: Atypical Lymphocytes % 2
[2021-05-16 23:31] LABS: ALT 32 U/L (14-59); AST 21 U/L (15-37); Albumin 3.9 g/dL (3.4-5.0); Alkaline Phosphatase 110 U/L (46-116); Anion Gap 11.6 mmol/L (3-11); BUN 13 mg/dL (7-18); Bilirubin, Total 0.4 mg/dL (0.2-1.0); CO2 25.4 mmol/L (21.0-32.0); CREATININE 1.1 mg/dL (0.55-1.02); Calcium 9.3 mg/dL (8.5-10.1); Chloride 104 mmol/L (98-107); Glucose 72 mg/dL (74-106); Potassium 3.5 mmol/L (3.5-5.1); Sodium 141 mmol/L (136-145); Troponin I < 0.05 ng/mL (<0.06)
[2021-05-17] VITALS (12 sets, daily range): BP systolic 117–146; BP diastolic 69–82; PULSE 60–63; O2SAT 92–96
--- NOTE | 2021-05-17 00:22 | DI.VRAD_ITS ---
PROCEDURE INFORMATION: Exam: XR Chest Exam date and time: 05/16/2021 11:18 PM Age: 70 years old Clinical indication: Pain; Chest pressure TECHNIQUE: Imaging protocol: XR of the chest. Views: 2 views. COMPARISON: CR XR PORTABLE CHEST AP 04/25/2021 8:34 AM FINDINGS: Question lucency along the medial right heart border and mediastinal border which may be artifactual Lungs: Mild chronic interstitial prominence. No consolidation. Pleural spaces: No pleural effusion. Heart/Mediastinum: Grossly stable. Bones/joints: Unremarkable. IMPRESSION: Question lucency on the right as described which may be artifactual. Minimal/small right-sided pneumothorax less likely. Further evaluation as clinically indicated Dictated and Authenticated by: Fernando Beverly MD. Ordering:RHONDA Martin MD
[2021-05-17 00:51] LABS: Troponin I < 0.05 ng/mL (<0.06)
== END 2021-05-17 01:19 | disposition home or self-care (01) ==
PROVIDERS: Physician Assistant; Emergency Provider Student in an Organized Health Care Education/Training Program; PCP Internal Medicine
DX: F41.8 Other specified anxiety disorders (principal); R00.2 Palpitations; R07.89 Other chest pain
CPT/HCPCS: 36415; 80053; 93005; 96374; 99285; 71046; 83735; 84484; 85025; 93010; 99284; J2060

== ENCOUNTER 2021-06-13 03:59 | Outpatient (CLI) | payer MEDICARE, MEDICAID, SELFPAY ==
[2021-06-13 16:49] LABS: ALT 26 U/L (14-59); AST 17 U/L (15-37); Albumin 4.2 g/dL (3.4-5.0); Alkaline Phosphatase 109 U/L (46-116); Anion Gap 12.2 mmol/L (3-11); BUN 13 mg/dL (7-18); Bilirubin, Total 0.3 mg/dL (0.2-1.0); CO2 27.8 mmol/L (21.0-32.0); CREATININE 0.9 mg/dL (0.55-1.02); Calcium 9.4 mg/dL (8.5-10.1); Chloride 106 mmol/L (98-107); Glucose 92 mg/dL (74-106); Potassium 3.9 mmol/L (3.5-5.1); Sodium 146 mmol/L (136-145); Total Protein 7.5 g/dL (6.4-8.2)
== END 2021-06-13 04:00 | disposition home or self-care (01) ==
LOC: LBO 03:59
PROVIDERS: PCP Internal Medicine; Visit Provider Internal Medicine
DX: R74.01 Elevation of levels of liver transaminase levels (principal)
CPT/HCPCS: 36415; 80053

== ENCOUNTER 2021-06-21 08:47 | Outpatient (CLI) | payer MEDICARE, MEDICAID, SELFPAY ==
[2021-06-21 13:22] LABS: Source Nasal/Nares
[2021-06-21 17:36] LABS: COVID-19 PCR Negative (Negative)
== END 2021-06-21 08:48 | disposition home or self-care (01) ==
LOC: LBO 08:47
PROVIDERS: PCP Internal Medicine; Visit Provider Urology
DX: Z20.822 Contact with and (suspected) exposure to COVID-19 (principal); Z01.818 Encounter for other preprocedural examination
CPT/HCPCS: 87635

== ENCOUNTER 2021-06-23 06:13 | Day surgery (SDC) | payer MEDICARE, MEDICAID, SELFPAY ==
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
[2021-06-23 06:50] VITALS: BP 134/85; PULSE 58; RESP 16; TEMP 36; O2SAT 97
[2021-06-23] MEDS: Sulfameth/Trimeth DS TAB 1 TAB PO (06:57)
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
[2021-06-23 07:03] VITALS: BMI 33.0
[2021-06-23] MEDS: Lactated Ringers 1,000 ML 80 ML IV (07:05)
[2021-06-23] MEDS: Lidocaine 2% Jelly 6 ML SYR (07:39)
[2021-06-23] MEDS: Omnipaque 300 MG/ML 50 ML BTL (07:44)
--- NOTE | 2021-06-23 07:47 | W.PM.DSUDISC ---
Discharge Plan Disposition Patient Disposition: HOME Condition: Stable Discharge Details Reason For Visit: cystoscopy Attending Provider: Stefano Trevino Primary Care Provider: Sully Cosme Home Meds and New Rx's Prescriptions: Discontinued tamsulosin [Flomax] 0.4 mg capsule 0.4 mg PO DAILY Qty: 14 RF: 0 No Action venlafaxine 150 mg tablet extended release 24hr 150 mg PO DAILY RF: 0 zolpidem 5 mg tablet 5 mg PO QHS RF: 0 prazosin 1 mg capsule 1 mg PO QHS RF: 0 hydrocodone-acetaminophen 5-325 mg tablet See Rx Instructions PO .COMPLEX MDD 10mg Qty: 56 RF: 0 atorvastatin 40 mg tablet 40 mg PO DAILY Qty: 90 RF: 3 cyclobenzaprine 5 mg tablet 5 mg PO DAILY PRN (Reason: muscle spasm) Qty: 30 RF: 0 gabapentin 600 mg tablet 1,200 mg PO HS Qty: 60 RF: 0 gabapentin 400 mg capsule 400 mg PO TIDWMEAL PRN (Reason: back pain) Qty: 60 RF: 0 metoprolol succinate 25 mg Tablet Extended Release 24 Hr 25 mg PO DAILY Qty: 0 RF: 0 venlafaxine 37.5 mg Capsule,Extended Release 24hr 75 mg PO DAILY Qty: 0 RF: 0 lorazepam 0.5 mg tablet 0.5 mg PO Q8H PRNRF: 0 Discharge Instructions Additional Instructions: followup 1 year for UA Shower/Bathe:: 24 hours Diet:: As Tolerated Discharge Orders Discharge Orders: Discharge Order (Routine); Ordered 06/23/21 Ordered By: Stefano Trevino DS: Diagnosis Discharge Diagnosis (1) Microscopic hematuria: Status: Acute
--- NOTE | 2021-06-23 07:50 | DI.RAD_ITS ---
Exam(s) XR RETROGRADE IN OR EXAM: XR RETROGRADE IN OR CLINICAL HISTORY: Microscopic hematuria. TECHNIQUE: 2D digital imaging was performed. COMPARISON: No exams were available for comparison FINDINGS: Fluoroscopy was provided during urologic procedure. See procedure report for details. Total fluoroscopy time 20.3 seconds Total clipped of dose 6.30mGy IMPRESSION: DATA REPOSITORY: RADIATION DOSE DELIVERED:
--- NOTE | 2021-06-23 07:50 | W.PM.OP ---
Date of service: 06/23/21 Time of Service: 07:50 Operative Note Operative Note DATE OF PROCEDURE: 06/23/21 PRE-OP DIAGNOSIS: microscopic hematuria POST-OP DIAGNOSIS: same PROCEDURE: cystoscopy with bilateral retrograde pyelogram SURGEON: Stefano Trevino ANESTHESIA TYPE: Local By Surgeon and General:No Airway Refer to Anesthesia Record ESTIMATED BLOOD LOSS: 0 PATHOLOGY: none sent COMPLICATIONS: None Patient was transported to: same day Patient's condition: stable Implants: none Indications: This is a 71-year-old woman who has a history of microscopic hematuria. She has had noncontrast CT scans and renal ultrasounds. The CT raised the possibility of a nonobstructing left ureteral stone. The ultrasound raise the possibility of a nonobstructing right kidney stone. She presents now for cystoscopy with retrograde pyelogram to complete her hematuria work-up. Findings: No bladder tumor No ureteral stones Procedure Description: Patient was brought to the operating room on 06/23/2021. She was given a preoperative dose of antibiotics. After successful induction of general anesthesia without intubation, she was placed in the dorsal lithotomy position. Her genitalia was prepped and draped. 2% Xylocaine jelly was instilled into the urethra to act as a local anesthetic. A 22 Albanian rigid cystoscope was then passed through the urethra into the bladder. The urethra and bladder were inspected with the 30 degree lens. Both ureteral orifices were identified. They appeared normal in configuration and location. No blood was seen coming from either side. Each orifice was cannulated with a 6 Albanian access catheter. Retrograde pyelogram was obtained by injecting Omnipaque through the access catheter under fluoroscopic guidance. Both ureters and collecting systems appeared normal with no filling defects. Both sides drained promptly on a 5-minute drainage film. The remainder of the bladder was reinspected using both a 30 and 70 degree lens. No papillary or nodular lesions were seen within the bladder. Based on today's examination, there is no significant uropathology. We recommend yearly urinalysis and a repeat work-up in 3 to 5 years if the hematuria persists.
[2021-06-23 07:52] VITALS: BP 148/96; PULSE 71; RESP 16; TEMP 36.4; O2SAT 97
[2021-06-23 08:22] VITALS: BP 115/63; PULSE 54; RESP 16; TEMP 36.5; O2SAT 96
--- NOTE | 2021-06-23 08:34 | W.ANESPOSTOP ---
Postoperative Evaluation Date, Time and Location Date Performed: 06/23/21 Time Performed: 08:25 Patient Location: Day Surgery Unit Vital Signs Most Recent Imported Vital Signs: Most Recent Vital Signs Temp Pulse Resp BP Pulse Ox 36.5 C 54 L 16 115/63 96 06/23/21 08:22 06/23/21 08:22 06/23/21 08:22 06/23/21 08:22 06/23/21 08:22 Pain Score Most Recent Pain Score: Most Recent Pain Score Pain Level 0 06/23/21 08:22 Assessment Mental Status: Awake (Alert & Oriented to Patient Baseline) Airway and Respiratory Function: Patent airway with normal (patient baseline) respiratory exam Cardiovascular Function: Hemodynamically Stable Hydration Status: Adequately Hydrated Nausea & Vomiting: No Nausea or Vomiting Pain: Pain is tolerable per patient Peripheral Nerve Block: Patient did not receive a nerve block
== END 2021-06-23 08:43 | disposition home or self-care (01) ==
PROVIDERS: PCP Internal Medicine; Visit Provider Urology
PROC: (CPT 74450; principal; 2021-06-23 07:30)
DX: R31.29 Other microscopic hematuria (principal); E11.9 Type 2 diabetes mellitus without complications; I10 Essential (primary) hypertension
CPT/HCPCS: 52005; 74420; J2405; Q9967

== ENCOUNTER 2021-08-04 01:23 | Emergency (ER) | payer MEDICARE, MEDICAID, SELFPAY ==
[2021-08-04] VITALS (16 sets, daily range): BP systolic 74–120; BP diastolic 44–65; PULSE 49–68; RESP 18; TEMP 36.6; O2SAT 96
--- NOTE | 2021-08-04 01:30 | RT.EKG_ITS ---
APPROVED REPORT Exam: Resting ECG Reason for Exam: chest pain Patient Location: E HR:53 bpm ECG Measurements Heart Rate 53 AXIS NC 151 P 30 QRSd 89 QRS 58 QT 469 T 70 QTc 440 Conclusion Sinus bradycardia...rate< 60 Physician: Rate 53, intervals normal, no significant ST elevation or depression. No evidence of STEM I
--- NOTE | 2021-08-04 01:30 | DI.RAD_ITS ---
Exam(s) XR ANKLE RT COMPLETE EXAM: XR ANKLE RT COMPLETE CLINICAL HISTORY: right lateral ankle pain after fall. TECHNIQUE: 2D digital imaging was performed. COMPARISON: No exams were available for comparison FINDINGS: There is an oblique mildly displaced fracture of the distal fibula. There is widening of the medial ankle mortise. There is a triangular 4 x 3 millimeter osteophytic density on the medial aspect of th e ankle in the region of the deltoid ligament, consistent with possible avulsion injury at this level . There appears to be a small defect in the inferior aspect of the medial malleolus. Talar dome dl ears unremarkable. IMPRESSION: Oblique mildly displaced fracture of the distal fibula with widening of the mortise and other finding s as above. DATA REPOSITORY: RADIATION DOSE DELIVERED:
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
[2021-08-04] MEDS: Acetaminophen 500 MG TAB 1000 MG PO (01:58)
[2021-08-04] MEDS: Normal Saline 1,000 ML 1000 ML IV (01:58)
--- NOTE | 2021-08-04 02:38 | DI.VRAD_ITS ---
PROCEDURE INFORMATION: Exam: XR Right Ankle Exam date and time: 08/04/2021 1:36 AM Age: 71 years old Clinical indication: Other: Right lateral ankle pain after fall TECHNIQUE: Imaging protocol: XR Right ankle. Views: 3 or more views. COMPARISON: CR XR KNEE RT 3V AP,LAT,CHEKO 06/18/2019 11:06 AM FINDINGS: Bones/joints: Mildly displaced obliquely oriented fracture of the distal right fibular metaphysis extending to the level of the ankle mortise. There is amorphous 3 mm calcification projecting in the region of the deltoid ligament without discrete donor site, suspect sequela of prior deltoid ligament injury. No joint dislocation. There is widening of the medial ankle mortise. Soft tissues: Lateral soft tissue edema centered over the distal fibula. IMPRESSION: 1. Mildly displaced obliquely oriented fracture of the distal right fibular metaphysis extending to the level of the ankle mortise. 2. Widening of the medial ankle mortise concerning for syndesmotic injury. 3. Amorphous 3 mm calcification projecting in the region of the deltoid ligament without discrete donor site. Suspect sequela of prior deltoid ligament injury but nonspecific. Dictated and Authenticated by: Frederick Hannah MD. Ordering:ROXY Pena MD
--- NOTE | 2021-08-04 03:45 | NUR.NOTE ---
needs to be set up with more help at home i put referral in care management mail box Nursing Note:
--- NOTE | 2021-08-04 08:20 | NUR.NOTE ---
Nursing Note: Referral given to Care Management that patient needs wheelchair, given crutches, unstable, refused admission. PADMINI. Jocelynn Pantoja
--- NOTE | 2021-08-04 10:30 | CMACTNOTE_ITS ---
- If Service Date Differs Date of service: 08/04/21 Time of Service: 10:30 Care Management Activity Note Sun is seen in the ED for a fracture of the right fibula. At the request of ED provider, KRANTHI telephones Sun at [phone] to discuss in-home services and the purchase of a wheelchair. A message is left on 08/04/21 at 10:29 am as there is no answer. KRANTHI then receives a phone call from nursing staff at [facility] requesting that a Home Health RN, PT and OT referral be placed for Sun. KRANTHI advises that the referral form has already been filled out and is awaiting ED provider's signature. Once signed, the referral will be faxed to Home Health.
== END 2021-08-04 06:24 | disposition home or self-care (01) ==
PROVIDERS: Emergency Provider Student in an Organized Health Care Education/Training Program; PCP Internal Medicine
DX: S82.491A Other fracture of shaft of right fibula, initial encounter for closed fracture (principal); W01.0XXA Fall on same level from slipping, tripping and stumbling without subsequent striking against object, initial encounter; X50.1XXA Overexertion from prolonged static or awkward postures, initial encounter; R07.9 Chest pain, unspecified; R53.81 Other malaise
CPT/HCPCS: 29515; 93005; 96360; 99283; 73610; 93010

== ENCOUNTER 2021-08-09 19:47 | Outpatient (REF) | payer MEDICARE, MEDICAID, SELFPAY ==
[2021-08-09 14:19] LABS: Source Nasal/Nares
[2021-08-09 20:01] LABS: COVID-19 PCR Negative (Negative)
== END 2021-08-09 19:48 | disposition home or self-care (01) ==
LOC: LBN 19:47
PROVIDERS: PCP Internal Medicine; Visit Provider Student in an Organized Health Care Education/Training Program
DX: Z20.822 Contact with and (suspected) exposure to COVID-19 (principal); Z01.818 Encounter for other preprocedural examination
CPT/HCPCS: 87635

== ENCOUNTER 2021-08-10 10:16 | Day surgery (SDC) | payer MEDICARE, MEDICAID, SELFPAY ==
[2021-08-10] VITALS (7 sets, daily range): BP systolic 93–163; BP diastolic 40–84; PULSE 63–75; RESP 15–21; TEMP 36.2–36.7; O2SAT 94–99; BMI 33.0
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
[2021-08-10] MEDS: Lactated Ringers 1,000 ML 80 ML IV (11:49)
--- NOTE | 2021-08-10 12:46 | W.PM.DSUDISC ---
Discharge Plan Disposition Patient Disposition: HOME Condition: Good Discharge Details Reason For Visit: ANKLE FX Attending Provider: Arun Alvarez Primary Care Provider: Sully Cosme Home Meds and New Rx's Prescriptions: New acetaminophen 500 mg tablet 500 mg PO Q6H PRN (Reason: pain) Qty: 60 RF: 2 oxycodone 5 mg tablet 5 mg PO Q6H PRN (Reason: severe post-operative pain) Qty: 12 RF: 0 Continued gabapentin 400 mg capsule 400 mg PO BID Qty: 180 RF: 3 venlafaxine 150 mg tablet extended release 24hr 150 mg PO HS RF: 0 zolpidem 5 mg tablet 5 mg PO QHS RF: 0 atorvastatin 40 mg tablet 40 mg PO DAILY Qty: 90 RF: 3 gabapentin 600 mg tablet 1,200 mg PO HS Qty: 60 RF: 0 lorazepam 0.5 mg tablet 0.5 mg PO Q8H PRNRF: 0 venlafaxine 37.5 mg capsule,extended release 24hr 75 mg PO HS RF: 0 metoprolol succinate 25 mg tablet extended release 24 hr 25 mg PO HS RF: 0 Discontinued hydrocodone-acetaminophen 5-325 mg tablet See Rx Instructions PO .COMPLEX MDD 10mg Qty: 56 RF: 0 Discharge Instructions Additional Instructions: Ankle ORIF Discharge Instructions Activity: You are NON WEIGHT BEARING. You should keep the leg elevated as much as possible. You may wiggle your toes and move your hip and knee. Dressings: You should keep your splint clean and dry. Do NOT get wet or dirty. If you have issues with your splint, please call the office at [phone] or the hospital after hours. Medications: - You should take Tylenol around the clock for baseline pain. - You have been prescribed Oxycodone, a stronger narcotic for breakthrough pain. Do NOT take your baseline hydrocodone-acetaminophen with this additional narcotic. - You should take a Baby Aspirin (81mg) twice a day for blood clot prevention. Follow-up: 2 weeks Referrals: Arun Alvarez MD [ [facility] STAFF PHYSICIAN] - Equipment/Supplies: Non-Weight Bearing Crutches and Splint Activity:: Elevate Remove Dressings/Wound Care:: Do Not Remove Shower/Bathe:: Cover Diet:: As Tolerated Discharge Orders Discharge Orders: Discharge Order (Routine); Ordered 08/10/21 Ordered By: Ayleen Wise DS: Diagnosis Discharge Diagnosis (1) Displaced fracture of lateral malleolus of right fibula: Status: Acute
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
[2021-08-10] MEDS: ceFAZolin 2 GM/50 ML BAG IVPB (13:28)
--- NOTE | 2021-08-10 14:35 | DI.RAD_ITS ---
Exam(s) XR ANKLE RT COMPLETE EXAM: XR ANKLE RT COMPLETE CLINICAL HISTORY: right ankle fracture TECHNIQUE: 2D and realtime digital imaging was performed. COMPARISON: No exams were available for comparison FINDINGS: C-arm fluoroscopy was utilized by Dr. Alvarez during open reduction and internal fixation of fractur e of the distal fibula. Hard copy show fixation in place with plate and screw fixation in the fibula and and additional fixation screw in the distal tibia. IMPRESSION: RADIATION DOSE DELIVERED: Mayi,r=0.81 mGy
--- NOTE | 2021-08-10 15:45 | W.ANESPOSTOP ---
Postoperative Evaluation Date, Time and Location Date Performed: 08/10/21 Time Performed: 15:45 Patient Location: Day Surgery Unit Vital Signs Most Recent Imported Vital Signs: Most Recent Vital Signs Temp Pulse Resp BP Pulse Ox 36.4 C L 63 16 111/57 L 95 08/10/21 15:23 08/10/21 15:23 08/10/21 15:23 08/10/21 15:23 08/10/21 15:23 Pain Score Most Recent Pain Score: Most Recent Pain Score Pain Level 0 08/10/21 15:23 Assessment Mental Status: Awake (Alert & Oriented to Patient Baseline) Airway and Respiratory Function: Patent airway with normal (patient baseline) respiratory exam Cardiovascular Function: Hemodynamically Stable Hydration Status: Adequately Hydrated Nausea & Vomiting: No Nausea or Vomiting Pain: Pain is tolerable per patient Peripheral Nerve Block: Patient did not receive a nerve block
--- NOTE | 2021-08-10 20:49 | W.PM.OP ---
Date of service: 08/10/21 Time of Service: 14:50 Operative Note Operative Note DATE OF PROCEDURE: 08/10/21 PRE-OP DIAGNOSIS: Right Ankle Fracture POST-OP DIAGNOSIS: same PROCEDURE: Open Reduction and Internal Fixation of Right Ankle - Lateral Malleolus (Bimalleolar Equivalent) with Syndesmotic Fixation SURGEON: Arun Alvarez ELECTRONIC NEWS GATHERING EDITOR: Ayleen Wise ANESTHESIA TYPE: General LMA/ETT Refer to Anesthesia Record ESTIMATED BLOOD LOSS: 20 PATHOLOGY: none sent TOURNIQUET TIME: 0 COMPLICATIONS: None Patient was transported to: PACU Patient's condition: stable Indications: Sun is a 71 year old female who fell with a twisting injury presented to the Emergency Department. X-rays confirmed the diagnosis of a right ankle fracture, bimalleolar equivalent. I reviewed the possible treatment options and given the fracture, I recommended operative fixation. I discussed the technical details of the surgery. I reviewed the risks such as bleeding, infection, pain, stiffness, malunion, nonunion, hardware prominence, hardware faiilure, malrotation, damage to nerves and vessels, blood clot. Despite these risks, she agreed to proceed. Findings: There was a fracture of the lateral malleolus which was reduced with traction and internal rotation and manipulation, and secure with a lag screw. A neuatralization plate was applied. The syndesmosis was affected and this was secured with a Synthes Fibulink device. Procedure Description: Sun was greeted in the preoperative area. Consent was previously reviewed and signed. Once in the operating room, anesthesia was administered. The patient was transferred to the fracture table in the supine position. She was positioned in the supine position with the operative side placed onto a bone foam ramp. All bony prominences were well padded. Arms were placed out to the side, padded, and secured. Prophylactic antibiotics, Cefazolin 2 grams, was given for prophylactic antibiotics. A timeout was performed for safe surgery. The right leg was prepped with Chloraprep. The leg was draped with a stockinette and extremity drape. A longitudinal incision was made along the fibula. Sharp dissection was carried down through the skin only. Blunt dissection was carried deep to this for the superficial peroneal nerve branches were identified and retracted anteriorly. The fascia of the fibula was incised sharply down to the level of bone and periosteal flaps were raised. The fracture was identified. Fracture hematoma was cleared with a curette, rongeur, and irrigation. I was then able to manually reduce the fracture with traction, internal rotation, and manipulation with a bone clamp. Once this was held in position anatomically a 3.5 mm lag screw was placed by technique. This had excellent purchase and reapproximate the bony edges well. Clamps were removed and x-ray was used to confirm appropriate positioning. With this in position and one third tubular locking plate was in place over the lateral aspect of the fibula. This was contoured to the bone. A nonlocking screw was placed both distal and proximal to the fracture site to secure the plate against the bone. 2 locking screws were placed distally into the distal aspect the fibula, unicortical. 2 additional nonlocking screws were placed proximally. These in position there is excellent stability of the fracture site. Fluoroscopy was utilized at this point to evaluate fracture fixation and stability. The lateral malleolus was anatomically reduced. However, with stress test, maximal external rotation, there was gapping of the medial clear space of approximate 3 to 4 mm. Therefore, I proceeded with syndesmotic fixation. A Synthes fibular anchor device was placed and tightened with the foot in neutral dorsiflexion position. Further stress test showed no opening of the medial clear space. Thorough irrigation was performed of the surgical site. The deep tissues were injected with 0.2 Verastem bupivacaine with epinephrine. The deep fascia was closed with 0 Vicryl. The soft tissues were closed with 3-0 Vicryl in a buried fashion. The skin was closed with 4-0 nylon. The wound was covered with Xeroform, 4 x 4's, web roll and a short posterior leg splint. At the end of the case, all counts were correct. Sun tolerated the procedure well without known complication and was taken to the PACU for recovery. Nonweightbearing with a splint.
== END 2021-08-10 16:29 | disposition home or self-care (01) ==
PROVIDERS: PCP Internal Medicine; Visit Provider Student in an Organized Health Care Education/Training Program
PROC: (CPT 27814; principal; 2021-08-10 13:45)
DX: S82.61XA Displaced fracture of lateral malleolus of right fibula, initial encounter for closed fracture (principal); G47.33 Obstructive sleep apnea (adult) (pediatric); I48.91 Unspecified atrial fibrillation; E11.9 Type 2 diabetes mellitus without complications; X58.XXXA Exposure to other specified factors, initial encounter
CPT/HCPCS: 27814; 27829; C1713; 73610; J0131; J0690; J1100; J1885; J2001; J2250; J2370; J2405; J2704

== ENCOUNTER 2021-08-19 14:04 | Outpatient (REF) | payer MEDICARE, MEDICAID, SELFPAY ==
[2021-08-20 12:22] LABS: COVID-19 RT-PCR UVMMC Result Negative (Negative)
== END 2021-08-19 14:05 | disposition home or self-care (01) ==
LOC: LBN 14:04
PROVIDERS: PCP Internal Medicine; Visit Provider Internal Medicine
DX: Z20.822 Contact with and (suspected) exposure to COVID-19 (principal)
CPT/HCPCS: U0003; U0005

== ENCOUNTER 2021-08-23 09:28 | Outpatient (CLI) | payer MEDICARE, MEDICAID, SELFPAY ==
--- NOTE | 2021-08-23 09:15 | DI.RAD_ITS ---
Exam(s) XR ANKLE RT 2V EXAM: XR ANKLE RT 2V CLINICAL HISTORY: 1st post op R ankle ORIF. TECHNIQUE: 2D digital imaging was performed. COMPARISON: CR,XR XR ANKLE RT COMPLETE from 08/04/2021 FINDINGS: AP and lateral in splint views of the right ankle compared to 08/04/2031. There has been interval ORIF with placement of a lateral fixation plate secured by multiple screws ac ross the distal fibular fracture site and fracture fragments are in satisfactory position and alignme nt. Independent screw is also noted at the fracture site. Also noted is an additional screw channel device horizontally orientated just above the tibial plafond. There is no widening of the ankle mor tise on these images. Talar dome appears unremarkable. Previously described small calcific density on the medial aspect of the ankle is again noted. IMPRESSION: DATA REPOSITORY: RADIATION DOSE DELIVERED:
== END 2021-08-23 09:29 | disposition home or self-care (01) ==
LOC: DIORS 09:29
PROVIDERS: PCP Internal Medicine; Referring Provider Internal Medicine; Visit Provider Student in an Organized Health Care Education/Training Program
DX: S82.61XD Displaced fracture of lateral malleolus of right fibula, subsequent encounter for closed fracture with routine healing; X58.XXXD Exposure to other specified factors, subsequent encounter
CPT/HCPCS: 73600

== ENCOUNTER 2021-09-19 13:25 | Outpatient (CLI) | payer MEDICARE, MEDICAID, SELFPAY ==
--- NOTE | 2021-09-19 11:15 | DI.RAD_ITS ---
Exam(s) XR ANKLE RT 2V EXAM: XR ANKLE RT 2V CLINICAL HISTORY: F/U RIGHT LATERAL MALLEOLUS FRACTURE. TECHNIQUE: 2D digital imaging was performed. COMPARISON: CR XR ANKLE RT 2V from 08/23/2021 FINDINGS: AP and lateral views again reveal the previously described hardware comprised of lateral fixation carlos te in the distal fibula as well as an additional screw channel device horizontally orientated above t he tibial plafond the. No evidence of hardware loosening no radiographic evidence of osteomyelitis. There is no widening of the mortise. Some osteopenia in the talar dome is noted but no osteochondra l defect nor degenerative subarticular cysts. No evidence of osseous tarsal coalition. IMPRESSION: DATA REPOSITORY: RADIATION DOSE DELIVERED:
== END 2021-09-19 13:26 | disposition home or self-care (01) ==
LOC: DIORS 13:25
PROVIDERS: PCP Internal Medicine; Referring Provider Internal Medicine; Visit Provider Student in an Organized Health Care Education/Training Program
DX: S82.61XD Displaced fracture of lateral malleolus of right fibula, subsequent encounter for closed fracture with routine healing (principal); W01.0XXD Fall on same level from slipping, tripping and stumbling without subsequent striking against object, subsequent encounter
CPT/HCPCS: 73600

== ENCOUNTER 2021-10-31 11:48 | Outpatient (CLI) | payer MEDICARE, MEDICAID, SELFPAY ==
--- NOTE | 2021-10-31 11:30 | DI.RAD_ITS ---
Exam(s) XR ANKLE RT 2V EXAM: XR ANKLE RT 2V INDICATION: s/p ORIF R ANKLE. COMPARISON: CR XR ANKLE RT 2V from 09/19/2021 TECHNIQUE: 2D digital imaging was performed. FINDINGS: Two views performed. There has been no change in in hardware alignment. Fractures are no longer discretely evident. Ther e is mild disuse osteopenia. No talar dome defect right cool mortise widening. Mild lateral soft ti ssue swelling. DATA REPOSITORY: RADIATION DOSE DELIVERED:
== END 2021-10-31 11:49 | disposition home or self-care (01) ==
LOC: DIORS 11:48
PROVIDERS: PCP Internal Medicine; Referring Provider Internal Medicine; Visit Provider Student in an Organized Health Care Education/Training Program
DX: X58.XXXA Exposure to other specified factors, initial encounter (principal); S82.61XA Displaced fracture of lateral malleolus of right fibula, initial encounter for closed fracture
CPT/HCPCS: 73600

== ENCOUNTER 2021-11-14 06:42 | Emergency (ER) | payer MEDICARE, MEDICAID, SELFPAY ==
[2021-11-14] VITALS (125 sets, daily range): BP systolic 57–133; BP diastolic 40–107; PULSE 56–136; RESP 12–26; TEMP 36.2; O2SAT 89–99
--- NOTE | 2021-11-14 06:30 | RT.EKG_ITS ---
APPROVED REPORT Exam: Resting ECG Reason for Exam: chest pain Patient Location: E HR:131 bpm ECG Measurements Heart Rate 131 AXIS IN [id number] P [id number] QRSd 91 QRS 30 QT 363 T 204 QTc 537 Conclusion Atrial fibrillation...? atrial activity Repol abnrm suggests ischemia, diffuse leads...ST-T neg, ant/lat/inf Prolonged QT interval...QTc >500mS Physician: Rate 131, atrial fibrillation, ST depression noted in V2 through V6. No STEMI. No signif icant ST elevation.
--- NOTE | 2021-11-14 06:30 | RT.EKG_ITS ---
APPROVED REPORT Exam: Resting ECG Reason for Exam: palpitations Patient Location: E HR:63 bpm ECG Measurements Heart Rate 63 AXIS [place] 162 P 41 QRSd 91 QRS 38 QT 431 T 80 QTc 441 Conclusion Sinus rhythm...normal P axis, V-rate 60- 99 sinus rhythm at 63, normal axis, ST depressions improved from prior, no STEMI
--- NOTE | 2021-11-14 06:45 | DI.CT_ITS ---
Exam(s) CT CHEST PE CTA EXAM: CT CHEST PE CTA CLINICAL HISTORY: chest pain, hypotensive, pericardial effusion. TECHNIQUE: Imaging Protocol: Axial CT angiography was performed with multi-slice acquisition and mu lti-planar reconstructions as well as axial, coronal and sagittal MIP reconstructions. CONTRAST MATERIAL: Intravenous: Omnipaque 350 Contrast volume:100 ml COMPARISON: CT CT RENAL COLIC WO from 02/09/2021 CR,XR XR CHEST 2V PA LATERAL from 05/16/2021 FINDINGS: Pulmonary Arteries: No evidence of filling defect to suggest pulmonary emboli. Tracheobronchial tree: Patent where visualized. Mediastinum and [place]: No dominant adenopathy or fluid collection. Pulmonary parenchyma: Expiratory changes. Mild respiratory motion. No consolidation or dominant measu rable mass. Pleura: No effusion or pneumothorax. Heart: The heart is not dilated. Trace pericardial effusion versus pericardial thickening. No coronar y artery calcifications are seen. Aorta: Thoracic aorta non-dilated. No aneurysm. No dissection. Upper abdomen: Unremarkable. Bones: Degenerative disc changes. IMPRESSION: No evidence of pulmonary embolism or other acute abnormality.. RADIATION DOSE DELIVERED: 873.25mGy.cm Total DLP DATA REPOSITORY: All CT scans at this facility are submitted to the National Radiology Data Registry (NRDR) Dose Index Registry (DIR) with the [employer] (ACR). RADIATION OPTIMIZATION: All CT scans at this facility use at least one of these dose optimization te chniques: automated exposure control; mA and/or kV adjustment per patient size (includes targeted exa ms where dose is matched to clinical indication); or iterative reconstruction.
[2021-11-14] MEDS: fentaNYL 100 MCG/2 ML VIAL ×2 (07:00→07:25)
[2021-11-14] MEDS: Normal Saline 1,000 ML 1000 ML IV (07:00)
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
[2021-11-14 07:05] LABS: Abs Immature Grans 0.01 10^3/uL (0.0-0.06); Absolute Basophil Count 0.04 10^3/uL (0.0-0.2); Absolute Eosinophil Count 0.15 10^3/uL (0.0-0.7); Absolute Lymphocyte Count 3.23 10^3/uL (1.2-3.4); Absolute Monocyte Count 0.58 10^3/uL (0.1-0.8); Absolute Neutrophil Count 5.16 10^3/uL (1.2-6.7); BE (Venous) -3 mmol/L (-2-3); Basophils % 0.4; Eosinophils % 1.6; HCO3 (Venous) 24 mmol/L (23-28); HCT 42.3 % (36.0-46.0); HGB 13.6 g/dL (11.2-15.7); Immature Grans % 0.1; Lymphocytes % 35.2; MCH 30.2 pg (27.0-33.0); MCHC 32.2 % (32.0-36.0); MPV 8.4 fL (8.0-11.0); Monocytes % 6.3; Neutrophils % 56.4; Nucleated RBC 0 %; O2 Sat (Venous) 73 %; Platelet Count 315 10^3/uL (130-400); RDW 14.3 % (11.7-14.6); RDW-SD 49.7 fL; TCO2 (Venous) 22 mmol/L (24-29); WBC 9.17 10^3/uL (4.4-10.8); pCO2 (Venous) 47 mmHg (41-51); pH (Venous) 7.31 (7.31-7.41); pO2 (Venous) 39 mmHg
[2021-11-14 07:07] LABS: Source Nasal/Nares
--- NOTE | 2021-11-14 07:15 | RT.EKG_ITS ---
APPROVED REPORT Exam: Resting ECG Reason for Exam: Patient Location: E HR:71 bpm ECG Measurements Heart Rate 71 AXIS [place] 173 P 73 QRSd 95 QRS 69 QT 416 T 76 QTc 453 Conclusion Sinus rhythm...normal P axis, V-rate 60- 99 Physician: Rate 71, sinus rhythm, no significant ST elevation. Mild ST depression is still present V 4 V5 and V6. No STEMI.
[2021-11-14] MEDS: Normal Saline 500 ML 1000 ML IV (07:20)
[2021-11-14 07:24] LABS: PTT Activated 23.8 sec (21.0-27.5); Prothrombin Time 10.1 sec (9.3-11.0)
[2021-11-14 07:26] LABS: ALT 25 U/L (14-59); AST 17 U/L (15-37); Albumin 3.6 g/dL (3.4-5.0); Alkaline Phosphatase 110 U/L (46-116); BUN 22 mg/dL (7-18); Bilirubin, Total 0.4 mg/dL (0.2-1.0); CREATININE 1.1 mg/dL (0.55-1.02); Calcium 8.8 mg/dL (8.5-10.1); Chloride 105 mmol/L (98-107); Estimated GFR 48.96 (mL/min/1.73m2); Glucose 167 mg/dL (74-106); Potassium 3.6 mmol/L (3.5-5.1); Sodium 141 mmol/L (136-145); Total Protein 7.1 g/dL (6.4-8.2)
[2021-11-14 07:32] LABS: Lipase 232 U/L (73-393); NT-proBNP 136 pg/mL (<300); Troponin I < 50 ng/L (<or=60)
[2021-11-14 07:47] LABS: COVID-19 PCR Negative (Negative)
--- NOTE | 2021-11-14 07:48 | DI.VRAD_ITS ---
PROCEDURE INFORMATION: Exam: CTA Chest With Contrast Exam date and time: 11/14/2021 7:08 AM Age: 71 years old Clinical indication: Patient HX: Chest pain, hypotensive, pericardial effusion. Patient had ankle surgery in August cast was removed last week. New onset chest pain/ back pain. TECHNIQUE: Imaging protocol: Computed tomographic angiography of the chest with contrast. 3D rendering (Not supervised by radiologist): MIP and/or 3D reconstructed images were created by the technologist. Radiation optimization: All CT scans at this facility use at least one of these dose optimization techniques: automated exposure control; mA and/or kV adjustment per patient size (includes targeted exams where dose is matched to clinical indication); or iterative reconstruction. Contrast material: OMNIPAQUE 350; Contrast volume: 100 ml; Contrast route: INTRAVENOUS (IV); COMPARISON: CT CHEST PE CTA 02/07/2021 1:05 PM FINDINGS: Pulmonary arteries: Pulmonary arteries are normal. There are no pulmonary emboli. Aorta: There is no significant thoracic aortic aneurysm. There is no thoracic aortic dissection. Lungs: There are bilateral dependent hypoventilatory changes. There is no focal airspace consolidation. Pleural spaces: There is no significant pleural effusion. There is no pneumothorax. Heart: There is small pericardial fluid. The heart is normal in size. There are no significant coronary artery vascular calcifications. Lymph nodes: There is no significant lymphadenopathy. Bones/joints: There are multilevel degenerative changes of the visualized thoracolumbar spine. There is no acute osseous pathology. Soft tissues: Soft tissues are unremarkable. Other findings: Visualized upper abdominal structures are normal. IMPRESSION: 1. No evidence of pulmonary embolism or aortic dissection. 2. Small pericardial effusion. 3. Degenerative changes. Dictated and Authenticated by: Frederick Otero MD. Ordering:ROXY Pena MD
--- NOTE | 2021-11-14 08:26 | ED.PROG_ITS ---
Date of service: 11/14/21 Time of Service: 17:18 Medical Decision Making Patient signed out to me at time of shift change by Dr. Phillips with discussion with [facility] for transfer pending. CTA shows small pericardial effusion, no other acute process. I contacted [facility] transfer center at 8:05, EKGs faxed and images pushed. Awaiting callback from cardiology. Patient reassessed multiple times, converted spontaneously to sinus rhythm from atrial fibrillation, heart rate in 70s, pain resolved. Blood pressure 103/47. We will continue to monitor and reassess. Received call back from [facility] 09: 35: Discussed patient presentation results with cardiology team, who requested heparin, no other acute intervention recommended, unsure if they are able to accept patient in transfer, states that they will call back after 10:00 meeting. Given significant delay in transfer at this point, EKG and images sent to [facility]. [facility] transfer center contacted [id number], awaiting callback. [facility] called back, they refuse transfer based on capacity. 1030: Troponin 254. Received call back from [facility] cardiology, they recommend replete potassium to greater than 4, hold Plavix at this time, continue with heparin, patient accepted by Dr. Espinoza, awaiting bed assignment for transfer. Patient continues to be pain-free. Pt remains pain free. 1354: Notified [facility] of most recent troponin result, troponin 870. They stated they will inform cardiology team, continuing to await bed assignment. Patient continues to be pain-free. Patient left emergency department with medics for transfer to [facility] without further incident. Lab Data Labs: Laboratory Tests Range/Units 11/14/21 11/14/21 11/14/21 06:57 06:57 06:57 WBC (4.4-10.8) 10^3/uL 9.17 RBC (3.93-5.22) 10^6/uL 4.50 Hgb (11.2-15.7) g/dL 13.6 Hct (36.0-46.0) % 42.3 MCV (80-95) fL 94.0 MCH (27.0-33.0) pg 30.2 MCHC (32.0-36.0) % 32.2 RDW (11.7-14.6) % 14.3 Plt Count (130-400) 10^3/uL 315 MPV (8.0-11.0) fL 8.4 Immature Gran % 0.1 Neutrophils % 56.4 Lymphocytes % 35.2 Monocytes % 6.3 Eosinophils % 1.6 Basophils % 0.4 Nucleated RBC % % 0 Absolute Neutrophils (1.2-6.7) 10^3/uL 5.16 Absolute Lymphocytes (1.2-3.4) 10^3/uL 3.23 Absolute Monocytes (0.1-0.8) 10^3/uL 0.58 Absolute Eosinophils (0.0-0.7) 10^3/uL 0.15 Absolute Basophils (0.0-0.2) 10^3/uL 0.04 PT (9.3-11.0) sec INR (0.9-1.1) APTT (21.0-27.5) sec VBG pH (7.31-7.41) VBG pCO2 (41-51) mmHg VBG pO2 mmHg VBG HCO3 (23-28) mmol/L VBG Total CO2 (24-29) mmol/L VBG O2 Saturation % VBG Base Excess (-2-3) mmol/L Sodium (136-145) mmol/L 141 Potassium (3.5-5.1) mmol/L 3.6 Chloride (98-107) mmol/L 105 Carbon Dioxide (21.0-32.0) mmol/L 24.0 Anion Gap (3-11) mmol/L 12.0 H BUN (7-18) mg/dL 22 H Creatinine (0.55-1.02) mg/dL 1.1 H Estimated GFR/1.73 m2 (mL/min/1.73m2) 48.96 Glucose (74-106) mg/dL 167 H Calcium (8.5-10.1) mg/dL 8.8 Total Bilirubin (0.2-1.0) mg/dL 0.4 AST (15-37) U/L 17 ALT (14-59) U/L 25 Alkaline Phosphatase (46-116) U/L 110 Troponin I (<or=60) ng/L < 50 NT-Pro-B Natriuret Pep (<300) pg/mL 136 Total Protein (6.4-8.2) g/dL 7.1 Albumin (3.4-5.0) g/dL 3.6 Lipase (73-393) U/L 232 TSH (0.36-3.74) uIU/mL 2.20 COVID-19 Source SARS-CoV-2 (PCR) (Negative) Range/Units 11/14/21 11/14/21 11/14/21 06:57 06:57 07:00 WBC (4.4-10.8) 10^3/uL RBC (3.93-5.22) 10^6/uL Hgb (11.2-15.7) g/dL Hct (36.0-46.0) % MCV (80-95) fL MCH (27.0-33.0) pg MCHC (32.0-36.0) % RDW (11.7-14.6) % Plt Count (130-400) 10^3/uL MPV (8.0-11.0) fL Immature Gran % Neutrophils % Lymphocytes % Monocytes % Eosinophils % Basophils % Nucleated RBC % % Absolute Neutrophils (1.2-6.7) 10^3/uL Absolute Lymphocytes (1.2-3.4) 10^3/uL Absolute Monocytes (0.1-0.8) 10^3/uL Absolute Eosinophils (0.0-0.7) 10^3/uL Absolute Basophils (0.0-0.2) 10^3/uL PT (9.3-11.0) sec 10.1 INR (0.9-1.1) 1.0 APTT (21.0-27.5) sec 23.8 VBG pH (7.31-7.41) 7.31 VBG pCO2 (41-51) mmHg 47 VBG pO2 mmHg 39 VBG HCO3 (23-28) mmol/L 24 VBG Total CO2 (24-29) mmol/L 22 L VBG O2 Saturation % 73 VBG Base Excess (-2-3) mmol/L -3 L Sodium (136-145) mmol/L Potassium (3.5-5.1) mmol/L Chloride (98-107) mmol/L Carbon Dioxide (21.0-32.0) mmol/L Anion Gap (3-11) mmol/L BUN (7-18) mg/dL Creatinine (0.55-1.02) mg/dL Estimated GFR/1.73 m2 (mL/min/1.73m2) Glucose (74-106) mg/dL Calcium (8.5-10.1) mg/dL Total Bilirubin (0.2-1.0) mg/dL AST (15-37) U/L ALT (14-59) U/L Alkaline Phosphatase (46-116) U/L Troponin I (<or=60) ng/L NT-Pro-B Natriuret Pep (<300) pg/mL Total Protein (6.4-8.2) g/dL Albumin (3.4-5.0) g/dL Lipase (73-393) U/L TSH (0.36-3.74) uIU/mL COVID-19 Source Nasal/Nares SARS-CoV-2 (PCR) (Negative) Negative Range/Units 11/14/21 11/14/21 10:00 13:05 WBC (4.4-10.8) 10^3/uL RBC (3.93-5.22) 10^6/uL Hgb (11.2-15.7) g/dL Hct (36.0-46.0) % MCV (80-95) fL MCH (27.0-33.0) pg MCHC (32.0-36.0) % RDW (11.7-14.6) % Plt Count (130-400) 10^3/uL MPV (8.0-11.0) fL Immature Gran % Neutrophils % Lymphocytes % Monocytes % Eosinophils % Basophils % Nucleated RBC % % Absolute Neutrophils (1.2-6.7) 10^3/uL Absolute Lymphocytes (1.2-3.4) 10^3/uL Absolute Monocytes (0.1-0.8) 10^3/uL Absolute Eosinophils (0.0-0.7) 10^3/uL Absolute Basophils (0.0-0.2) 10^3/uL PT (9.3-11.0) sec INR (0.9-1.1) APTT (21.0-27.5) sec VBG pH (7.31-7.41) VBG pCO2 (41-51) mmHg VBG pO2 mmHg VBG HCO3 (23-28) mmol/L VBG Total CO2 (24-29) mmol/L VBG O2 Saturation % VBG Base Excess (-2-3) mmol/L Sodium (136-145) mmol/L Potassium (3.5-5.1) mmol/L Chloride (98-107) mmol/L Carbon Dioxide (21.0-32.0) mmol/L Anion Gap (3-11) mmol/L BUN (7-18) mg/dL Creatinine (0.55-1.02) mg/dL Estimated GFR/1.73 m2 (mL/min/1.73m2) Glucose (74-106) mg/dL Calcium (8.5-10.1) mg/dL Total Bilirubin (0.2-1.0) mg/dL AST (15-37) U/L ALT (14-59) U/L Alkaline Phosphatase (46-116) U/L Troponin I (<or=60) ng/L 254 H* 871 H* NT-Pro-B Natriuret Pep (<300) pg/mL Total Protein (6.4-8.2) g/dL Albumin (3.4-5.0) g/dL Lipase (73-393) U/L TSH (0.36-3.74) uIU/mL COVID-19 Source SARS-CoV-2 (PCR) (Negative) ECG Data Attestation: I personally reviewed and interpreted this ECG (s) as follows: Interpretation: EKG 1044 shows sinus rhythm at 63, normal axis, ST depressions improved from prior, no STEMI Sign Out Sign Out Data: Sign Out Comment: Chest pain, repeat troponin needed, discussed case with [facility] Last updated by Jean Phillips DO at 11/14/21 07:59 Discharge Plan Disposition Patient Disposition: STILL A PATIENT Condition: Serious Discharge Details Clinical Impression: A-fib, Chest pain, Dehydration Primary Care Provider: Sully Cosme ED Provider: Kerry Chamorro Home Meds and New Rx's Prescriptions: No Action gabapentin 400 mg capsule 400 mg PO BID Qty: 180 3RF Rx Instructions: 1 in AM, 1 midday venlafaxine 150 mg tablet extended release 24hr 150 mg PO HS 0RF zolpidem 5 mg tablet 5 mg PO QHS 0RF acetaminophen 325 mg tablet 650 mg PO ONCE 0RF hydrocodone-acetaminophen 5-325 mg tablet See Rx Instructions PO .COMPLEX MDD 10mg Qty: 56 0RF Rx Instructions: PO 1/2 tab in AM, 1 tab midday, 1/2 tab qhs; gabapentin 600 mg tablet 1,200 mg PO HS Qty: 60 0RF Rx Instructions: Leigh Melendez, [facility], atorvastatin 40 mg tablet 40 mg PO DAILY Qty: 90 3RF lorazepam 0.5 mg tablet 0.5 mg PO Q8H PRN0RF venlafaxine 37.5 mg capsule,extended release 24hr 75 mg PO HS 0RF metoprolol succinate 25 mg tablet extended release 24 hr 25 mg PO HS 0RF acetaminophen 500 mg tablet 500 mg PO Q6H PRN (Reason: pain) Qty: 60 2RF
[2021-11-14 10:24] LABS: Troponin I 254 ng/L (<or=60)
[2021-11-14] MEDS: POTASSIUM CHLORIDE 20 MEQ/100 ML BAG 50 MEQ IVPB (11:00)
[2021-11-14] MEDS: Normal Saline 1,000 ML 75 ML IV (12:28)
[2021-11-14] MEDS: POTASSIUM CHLORIDE 20 MEQ/100 ML BAG 40 MEQ IVPB (13:38)
[2021-11-14 13:53] LABS: Troponin I 871 ng/L (<or=60)
== END 2021-11-14 15:17 | disposition still patient (30) ==
PROVIDERS: Student in an Organized Health Care Education/Training Program; Emergency Provider Student in an Organized Health Care Education/Training Program; PCP Internal Medicine
DX: I48.91 Unspecified atrial fibrillation (principal); R07.9 Chest pain, unspecified; E86.0 Dehydration; R06.89 Other abnormalities of breathing; R00.2 Palpitations; I95.9 Hypotension, unspecified; I31.3 Pericardial effusion (noninflammatory)
CPT/HCPCS: 71275; 80053; 82805; 83690; 87635; 93005; 96361; 96365; 96366; 96367; 96376; 99285; 83880; 84443; 84484; 85025; 85610; 85730; 93010; J2270; J3010; J3480

== ENCOUNTER 2022-01-20 08:10 | Outpatient (CLI) | payer MEDICARE, MEDICAID, SELFPAY ==
--- NOTE | 2022-01-20 08:00 | RT.EKG_ITS ---
APPROVED REPORT Exam: Resting ECG Reason for Exam: afib Patient Location: O HR:64 bpm ECG Measurements Heart Rate 64 AXIS MA 151 P 27 QRSd 101 QRS 18 QT 408 T 38 QTc 421 Conclusion Sinus rhythm...normal P axis, V-rate 50- 99
== END 2022-01-20 08:11 | disposition home or self-care (01) ==
LOC: DI.CARD 08:11
PROVIDERS: PCP Internal Medicine; Visit Provider Internal Medicine Cardiovascular Disease
DX: I21.4 Non-ST elevation (NSTEMI) myocardial infarction (principal); I48.91 Unspecified atrial fibrillation; I50.9 Heart failure, unspecified
CPT/HCPCS: 93010

== ENCOUNTER → 2022-01-20 08:52 | Outpatient (BNVA) | payer MEDICARE, MEDICAID, SELFPAY | PROVIDERS: PCP Internal Medicine; Referring Provider Internal Medicine; Visit Provider Internal Medicine Cardiovascular Disease | DX: I25.2 Old myocardial infarction (principal); I50.9 Heart failure, unspecified; I48.91 Unspecified atrial fibrillation; I25.10 Atherosclerotic heart disease of native coronary artery without angina pectoris; I10 Essential (primary) hypertension; G47.33 Obstructive sleep apnea (adult) (pediatric) | CPT/HCPCS: 93005; 99203; 99214 ==

== ENCOUNTER 2022-08-29 11:57 | Outpatient (REF) | payer MEDICARE, MEDICAID, SELFPAY ==
[2022-08-29 17:25] LABS: Hemoglobin A1C 5.7 % (<5.7)
[2022-08-29 17:53] LABS: Anion Gap 11.9 mmol/L (3-11); BUN 19 mg/dL (7-18); CO2 22.1 mmol/L (21.0-32.0); CREATININE 0.8 mg/dL (0.55-1.02); Calculated LDL 65 mg/dL (<100); Chloride 106 mmol/L (98-107); Cholesterol 161 mg/dL (<200); Estimated GFR 78.24 (mL/min/1.73m2); Glucose 87 mg/dL (74-106); HDL Cholesterol 67 mg/dL (40-60); Potassium 4.2 mmol/L (3.5-5.1); Sodium 140 mmol/L (136-145); Triglyceride 145 mg/dL (<150)
== END 2022-08-29 11:58 | disposition home or self-care (01) ==
LOC: LBN 11:57
PROVIDERS: PCP Nurse Practitioner Adult Health; Referring Provider Nurse Practitioner Adult Health; Visit Provider Nurse Practitioner Adult Health
DX: E78.00 Pure hypercholesterolemia, unspecified (principal); I10 Essential (primary) hypertension; R73.01 Impaired fasting glucose; Z79.891 Long term (current) use of opiate analgesic
CPT/HCPCS: 80048; 80061; 83036

== ENCOUNTER 2022-11-09 11:54 | Emergency (ER) | payer MEDICARE, MEDICAID, SELFPAY ==
[2022-11-09] VITALS (23 sets, daily range): BP systolic 99–115; BP diastolic 59–73; PULSE 58–62; RESP 0–23; TEMP 36.4–36.8; O2SAT 91–99
--- NOTE | 2022-11-09 12:15 | RT.EKG_ITS ---
APPROVED REPORT Exam: Resting ECG Reason for Exam: Dizzy Patient Location: E HR:59 bpm ECG Measurements Heart Rate 59 AXIS FL 164 P 10 QRSd 94 QRS 29 QT 431 T 54 QTc 428 Conclusion Sinus bradycardia...rate< 60 Low voltage, precordial leads...precordial leads <1.0mV. Sinus. Normal axis. No STEMI. I have reviewed and interpreted ECG and agree with software generated interpretation.
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
[2022-11-09 13:02] LABS: Abs Immature Grans 0.02 10^3/uL (0.0-0.06); Absolute Basophil Count 0.04 10^3/uL (0.0-0.2); Absolute Eosinophil Count 0.13 10^3/uL (0.0-0.7); Absolute Lymphocyte Count 4.59 10^3/uL (1.2-3.4); Absolute Monocyte Count 0.63 10^3/uL (0.1-0.8); Absolute Neutrophil Count 4.26 10^3/uL (1.2-6.7); Basophils % 0.4; Eosinophils % 1.3; HCT 44.7 % (36.0-46.0); HGB 14.8 g/dL (11.2-15.7); Immature Grans % 0.2; Lymphocytes % 47.5; MCH 29.8 pg (27.0-33.0); MCHC 33.1 % (32.0-36.0); MCV 90 fL (80-95); Monocytes % 6.5; Neutrophils % 44.1; Platelet Count 266 10^3/uL (130-400); RBC 4.96 10^6/uL (3.93-5.22); RDW 14.6 % (11.7-14.6); RDW-SD 48.1 fL; WBC 9.67 10^3/uL (4.4-10.8)
[2022-11-09 13:23] LABS: ALT 19 U/L (14-59); AST 14 U/L (15-37); Albumin 3.7 g/dL (3.4-5.0); Alkaline Phosphatase 85 U/L (46-116); Anion Gap 8.4 mmol/L (3-11); BUN 12 mg/dL (7-18); Bilirubin, Total 0.3 mg/dL (0.2-1.0); CO2 26.6 mmol/L (21.0-32.0); Calcium 9.1 mg/dL (8.5-10.1); Chloride 105 mmol/L (98-107); Estimated GFR 59.86 (mL/min/1.73m2); Glucose 90 mg/dL (74-106); Magnesium 2.2 mg/dL (1.8-2.4); Potassium 3.7 mmol/L (3.5-5.1); Sodium 140 mmol/L (136-145); Troponin I < 50 ng/L (<or=60)
[2022-11-09 13:31] LABS: Bilirubin Negative (Negative); Blood Small (Negative); Clarity Sl Cloudy (Clear); Glucose 500 mg/dL (Negative); Ketones Negative (Negative); Leukocyte Esterase Small (Negative); Nitrite Positive (Negative); Urobilinogen 0.2 mg/dL (Up to 0.2); pH 5.5 (5-8)
[2022-11-09 13:36] LABS: Bacteria Moderate HPF (Negative); C & S Indicated? No/Sq. Contamination; Casts Negative LPF (Negative); Crystals Negative HPF (Negative); Epithelial Cells Many HPF (Negative); Mucus Trace (Negative)
[2022-11-09] MEDS: Omnipaque 350 MG/ML 500 ML BTL-Imaging package IJ (13:47)
--- NOTE | 2022-11-09 13:55 | DI.CT_ITS ---
Exam(s) CT BRAIN NECK CTA EXAM: CT BRAIN NECK CTA CLINICAL HISTORY: Double Vision, Ataxia. TECHNIQUE: Imaging Protocol: Axial CT angiography was performed with multi-slice acquisition and mu lti-planar and/or 3D reconstructions. CONTRAST MATERIAL: Intravenous: Omnipaque 350 Contrast volume:structured data in ml COMPARISON: CT CT CHEST PE CTA from 11/14/2021 FINDINGS: CTA Neck W: Incidental finding: Area of infiltrate in the sub apical aspect the left upper lobe noted which measu res approximately 2.5 x 2.5 cm. This was not evident on CT scan of 11/14/2021, 1 year ago and requir es further investigation rule out neoplasm this level. Follow-up chest CT scan recommended.. Aortic arch anatomy: The aortic arch anatomy is conventional and there is no significant stenosis at the origin of the great vessels off of the aortic arch. No intimal flap evident. Anterior circulation: Both common carotid arteries ascend with normal luminal diameters.. They extend medially and the bif urcations are anterior to the vertebra. On the right side there is no significant plaque at the carotid bulb and proximal right ICA and the r ight ICA is patent in the upper neck and skull base. On the left side there is calcified plaque at the origin of the left internal carotid artery with thi s proximal left ICA having a horizontal course and this calcified plaque extending from the carotid b ulb into the proximal left ICA for a distance of 1.6 cm on the inferior wall. Amount of stenosis is somewhat difficult to evaluate because of the tortuous course of this level but estimate approximatel y-30-40 percent stenosis. Above this level the left ICA in the upper neck appears patent as well as in the skull base. Posterior circulation: Both vertebral arteries originate in conventional fashion off of the subclavian arteries and there is no obvious stenosis at the origin of the vertebral arteries. Left vertebral artery is dominant. It is sends in the foramen transverse area with a luminal diameter of 5 mm. At the skull base is it is the main contributor to the formation of the basilar artery. The right vertebral artery is a thinner vessel with a luminal diameter of 2.5 mm within the foramen t ransverse area. At the skull base the right vertebral artery is twig like. CTA Brain W: Anterior circulation: Both internal carotid arteries are patent in the skull base-carotid canals as well as within the cave rnous sinuses. The supraclinoid aspects of the ICAs are patent. Both A1 segments are patent as are the anterior cer ebral arteries and there is no evidence of aneurysm at the level of the anterior communicating artery . Both middle cerebral arteries are patent with no evidence of significant stenosis nor intraluminal th rombus. There also no aneurysms of these vessels. Posterior circulation: Basilar artery is formed predominately by the dominant left vertebral artery and ascends slightly rig ht of the midline. Superiorly it gives off the superior cerebellar arteries. Above this level the ba silar artery terminates as patent bilateral posterior cerebral arteries. There is no evidence of aneurysm at the tip of the basilar artery nor elsewhere in the [id number] is. CT BRAIN: There is no evidence of intracranial hemorrhage, mass effect, or shift of midline structures. There are no extra-axial fluid collections. Ventricles are not enlarged or shifted. There are no ring enh ancing lesions in the brain and no abnormal meningeal enhancement. There is some bilateral periventricular hypodensity consistent chronic small vessel disease. No obvi ous acute asymmetric territorial infarct evident. IMPRESSION: 1. There is calcified plaque at the left carotid bulb and proximal left ICA for a distance of 1.6 cm on the posterior wall in the proximal horizontal course of the left ICA. Estimated stenosis is appro ximately 30-40 percent at this level. 2. The opposite-right carotid bulb and proximal right ICA are patent in the neck without significant stenosis. 3. Both carotid arteries in the neck exhibit medial course. 4. The left vertebral artery is patent. The thinner right vertebral artery terminates at the skull base. 5. Patent intracranial arteries, as described above.. 6. New infiltrate noted in the left upper lobe which was not evident on chest CT scan of 11/14/2021. Requires follow-up chest CT scan. Cannot exclude possibility neoplasm at this level. Called by myself to ER provider RADIATION DOSE DELIVERED: 1,940.08mGy.cm Total DLP DATA REPOSITORY: All CT scans at this facility are submitted to the National Radiology Data Registry (NRDR) Dose Index Registry (DIR) with the [employer] (ACR). RADIATION OPTIMIZATION: All CT scans at this facility use at least one of these dose optimization te chniques: automated exposure control; mA and/or kV adjustment per patient size (includes targeted exa ms where dose is matched to clinical indication); or iterative reconstruction.
[2022-11-09 13:57] LABS: *AMPHETAMINES SCREEN URINE Negative (Negative); *BARBITURATES SCREEN URINE Negative (Negative); *BENZODIAZEPINES SCREEN URINE Negative (Negative); Cannabinoids THC Negative (Negative); Cocaine Screen,Urine Negative (Negative); METHADONE URINE SCREEN Negative (Negative); OPIATES URINE SCREEN Positive (Negative)
[2022-11-09 14:04] LABS: Tricyclic Antidepressants Negative (Negative)
--- NOTE | 2022-11-09 15:00 | DI.RAD_ITS ---
Exam(s) XR CHEST 2V PA LATERAL EXAM: XR CHEST 2V PA LATERAL CLINICAL HISTORY: Dizziness. TECHNIQUE: 2D digital imaging was performed. COMPARISON: CR,XR XR CHEST 2V PA LATERAL from 05/16/2021 FINDINGS: 2 views: Heart size is normal. The mediastinum is not widened. Lungs are clear. No infiltrates nor pleural effusions. IMPRESSION: No acute pulmonary findings. DATA REPOSITORY: RADIATION DOSE DELIVERED:
[2022-11-09] MEDS: Fosfomycin Tromethamine 3 GM PACKET PO (15:08)
[2022-11-09] MEDS: Meclizine 25 MG TAB PO (15:08)
[2022-11-09 16:05] LABS: Troponin I < 50 ng/L (<or=60)
--- NOTE | 2022-11-09 16:21 | NUR.NOTE ---
Nursing Note: Lab called about the urine culture order. I reviewed the provider note and cancelled the order.
== END 2022-11-09 16:07 | disposition home or self-care (01) ==
PROVIDERS: Emergency Provider Registered Nurse Emergency; PCP Nurse Practitioner Adult Health
DX: N39.0 Urinary tract infection, site not specified (principal); H53.2 Diplopia; I48.91 Unspecified atrial fibrillation; I50.9 Heart failure, unspecified; I25.2 Old myocardial infarction
CPT/HCPCS: 36415; 70496; 70498; 80053; 80307; 93005; 99285; 71046; 81003; 81015; 83735; 84484; 85025; 87086; 93010; 99284; J3490

== ENCOUNTER → 2022-11-13 12:57 | Outpatient (BNVA) | payer MEDICARE, MEDICAID, SELFPAY | PROVIDERS: PCP Nurse Practitioner Adult Health; Referring Provider Nurse Practitioner Adult Health; Visit Provider Internal Medicine Cardiovascular Disease | DX: I25.10 Atherosclerotic heart disease of native coronary artery without angina pectoris (principal); I48.0 Paroxysmal atrial fibrillation; Z79.01 Long term (current) use of anticoagulants; I10 Essential (primary) hypertension | CPT/HCPCS: 99214 ==

== ENCOUNTER → 2023-11-26 11:40 | Outpatient (BNVA) | payer MEDICARE, MEDICAID, SELFPAY | PROVIDERS: PCP Nurse Practitioner Adult Health; Referring Provider Nurse Practitioner Adult Health; Visit Provider Internal Medicine Cardiovascular Disease | DX: I25.10 Atherosclerotic heart disease of native coronary artery without angina pectoris (principal); I48.0 Paroxysmal atrial fibrillation | CPT/HCPCS: 99213 ==

== ENCOUNTER 2024-01-06 01:57 | Emergency (ER) | payer MEDICARE, MEDICAID, SELFPAY ==
[2024-01-06] VITALS (55 sets, daily range): BP systolic 87–161; BP diastolic 50–93; PULSE 47–83; RESP 14–24; TEMP 36.7; O2SAT 91–98
--- NOTE | 2024-01-06 01:45 | RT.EKG_ITS ---
APPROVED REPORT Exam: Resting ECG Reason for Exam: chest pain Patient Location: E HR:50 bpm ECG Measurements Heart Rate 50 AXIS PA 169 P 18 QRSd 94 QRS 44 QT 437 T 65 QTc 398 Conclusion Sinus bradycardia...rate< 60 Physician: no stemi
--- NOTE | 2024-01-06 02:00 | DI.RAD_ITS ---
Exam(s) XR PORTABLE CHEST AP EXAM: XR PORTABLE CHEST AP CLINICAL HISTORY: central chest pain TECHNIQUE: 2D digital imaging was performed of the chest. One image was obtained. An AP view was ob tained. COMPARISON: CR XR CHEST 2V PA LATERAL from 11/09/2022 FINDINGS: MEDIASTINUM: Normal. HEART: Normal. PULMONARY VASCULATURE: Normal. LUNGS: Clear. PLEURAL SPACE: No pleural effusion or pneumothorax. BONE:Within normal limits for the patient's age. OTHER FINDINGS:Normal. IMPRESSION: No acute pulmonary findings. DATA REPOSITORY: RADIATION DOSE DELIVERED:
[2024-01-06] MEDS: nitroGLYcerin 0.4 MG TAB SL (02:13)
[2024-01-06] MEDS: LORazepam 1 MG TAB (02:13)
[2024-01-06 02:14] LABS: Abs Immature Grans 0.01 10^3/uL (0.0-0.06); HCT 47.5 % (36.0-46.0); HGB 15.5 g/dL (11.2-15.7); MCH 30.2 pg (27.0-33.0); MCHC 32.6 % (32.0-36.0); MCV 93 fL (80-95); MPV 8.5 fL (8.0-11.0); Platelet Count 301 10^3/uL (130-400); RBC 5.13 10^6/uL (3.93-5.22); RDW 14.5 % (11.7-14.6); RDW-SD 49.3 fL; WBC 12.47 10^3/uL (4.4-10.8)
[2024-01-06 02:28] LABS: Absolute Eosinophil Count 0.25 10^3/uL (0.0-0.7); Absolute Lymphocyte Count 9.48 10^3/uL (1.2-3.4); Absolute Neutrophil Count 2.24 10^3/uL (1.2-6.7); Atypical Lymphocytes % 5 %
[2024-01-06 02:29] LABS: Diff Comment Manual Differential; PTT Activated 26.3 sec (23.6-32.8); Prothrombin Time 10.2 sec (9.1-11.1); RBC Morphology Normal
[2024-01-06 02:40] LABS: ALT 23 U/L (14-59); AST 13 U/L (15-37); Albumin 3.8 g/dL (3.4-5.0); Alkaline Phosphatase 100 U/L (46-116); Anion Gap 8.5 mmol/L (3-11); BUN 14 mg/dL (7-18); Bilirubin, Total 0.5 mg/dL (0.2-1.0); CO2 26.5 mmol/L (21.0-32.0); Calcium 8.7 mg/dL (8.5-10.1); Chloride 107 mmol/L (98-107); Estimated GFR 59.49 (mL/min/1.73m2); Glucose 77 mg/dL (74-106); Lipase 171 U/L (16-77); NT-proBNP 163 pg/mL (<300); Potassium 4.1 mmol/L (3.5-5.1); Sodium 142 mmol/L (136-145); Total Protein 7.4 g/dL (6.4-8.2); Troponin I < 50 ng/L (< or =60)
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
--- NOTE | 2024-01-06 03:12 | DI.VRAD_ITS ---
PROCEDURE INFORMATION: Exam: XR Chest Exam date and time: 01/06/2024 2:59 AM Age: 73 years old Clinical indication: Other: Central chest pain TECHNIQUE: Imaging protocol: Radiologic exam of the chest. Views: 1 view. COMPARISON: CR XR CHEST 2V PA LATERAL 11/09/2022 3:15 PM FINDINGS: Lungs: Unremarkable. No consolidation. Pleural spaces: Unremarkable. No pleural effusion. No pneumothorax. Heart/Mediastinum: Unremarkable. No cardiomegaly. Bones/joints: Unremarkable. IMPRESSION: No acute findings. Dictated and Authenticated by: Daron Simmons MD. Ordering:ROXY Pena MD
[2024-01-06 05:12] LABS: Troponin I < 50 ng/L (< or =60)
== END 2024-01-06 06:26 | disposition home or self-care (01) ==
PROVIDERS: Emergency Provider Student in an Organized Health Care Education/Training Program; PCP Nurse Practitioner Adult Health
DX: R07.9 Chest pain, unspecified (principal); F41.9 Anxiety disorder, unspecified; I48.0 Paroxysmal atrial fibrillation; I25.10 Atherosclerotic heart disease of native coronary artery without angina pectoris; I25.2 Old myocardial infarction; I11.0 Hypertensive heart disease with heart failure; I50.9 Heart failure, unspecified; Z79.01 Long term (current) use of anticoagulants; Z87.891 Personal history of nicotine dependence; Z59.00 Homelessness unspecified
CPT/HCPCS: 36415; 80053; 83690; 93005; 93308; 99285; 71045; 83880; 84484; 85025; 85610; 85730; 93010; 99284

== ENCOUNTER 2024-01-29 12:14 | Emergency (ER) | payer MEDICARE, MEDICAID, SELFPAY ==
[2024-01-29] VITALS (31 sets, daily range): BP systolic 95–134; BP diastolic 49–73; PULSE 55–60; RESP 17–22; TEMP 36.3; O2SAT 87–97
--- NOTE | 2024-01-29 12:30 | RT.EKG_ITS ---
APPROVED REPORT Exam: Resting ECG Reason for Exam: vertigo Patient Location: E HR:56 bpm ECG Measurements Heart Rate 56 AXIS DC 176 P 43 QRSd 98 QRS 39 QT 454 T 65 QTc 438 Conclusion Sinus bradycardia...rate< 60 Narrow complex sinus bradycardia at a rate of 56. Normal axis. Intervals within normal limits. T w ave flattening in aVL and in leads V2 through V6. Poor R wave progression. Compared to prior dated earlier this month T wave flattening is new. Poor R wave progression is similar.
--- NOTE | 2024-01-29 12:30 | DI.MRI_ITS ---
Exam(s) MR BRAIN WO EXAM: MR BRAIN WO CLINICAL HISTORY: vertigo TECHNIQUE: Multiplanar multisequence MRI of the brain was performed. COMPARISON: CT CT BRAIN NECK CTA from 11/09/2022 FINDINGS: VENTRICLES AND EXTRA AXIAL SPACES: Normal in size and morphology for the patient's age. MIDLINE SHIFT: None. CEREBRAL PARENCHYMA: No focus of restricted diffusion to suggest acute infarct. No space-occupying le antonio identified. Mild atrophy consistent with the patient's age. Mild scattered foci of high signal in the white matter consistent with sequela of chronic microvascular disease. HEMORRHAGE: None. BRAINSTEM/CEREBELLUM: Normal. VISUALIZED PARANASAL SINUSES/MASTOIDS:Clear. Vasculature: Normal flow void. PITUITARY GLAND: Unremarkable. ORBITS: Unremarkable. IMPRESSION: Unremarkable MRI of the brain. DATA REPOSITORY:
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
[2024-01-29] MEDS: Normal Saline 250 ML IV (13:00)
[2024-01-29 13:03] LABS: Abs Immature Grans 0.02 10^3/uL (0.0-0.06); Absolute Basophil Count 0.05 10^3/uL (0.0-0.2); Absolute Eosinophil Count 0.19 10^3/uL (0.0-0.7); Absolute Monocyte Count 0.46 10^3/uL (0.1-0.8); Basophils % 0.4 %; Eosinophils % 1.7 %; HCT 47.6 % (36.0-46.0); HGB 15.8 g/dL (11.2-15.7); Immature Grans % 0.2 %; Lactate 1.6 mmol/L (0.6-1.4); MCH 30.7 pg (27.0-33.0); MCHC 33.2 % (32.0-36.0); MCV 93 fL (80-95); MPV 8.4 fL (8.0-11.0); Monocytes % 4.1 %; Neutrophils % 43.6 %; Platelet Count 265 10^3/uL (130-400); RBC 5.14 10^6/uL (3.93-5.22); RDW 14.5 % (11.7-14.6); RDW-SD 48.9 fL; WBC 11.29 10^3/uL (4.4-10.8)
[2024-01-29 13:06] LABS: Absolute Lymphocyte Count 5.65 10^3/uL (1.2-3.4); Absolute Neutrophil Count 4.92 10^3/uL (1.2-6.7)
[2024-01-29 13:12] LABS: Diff Comment Diff Reviewed; RBC Morphology Normal
[2024-01-29 13:31] LABS: ALT 23 U/L (14-59); AST 13 U/L (15-37); Albumin 3.9 g/dL (3.4-5.0); Alkaline Phosphatase 100 U/L (46-116); BUN 16 mg/dL (7-18); Bilirubin, Total 0.45 mg/dL (0.2-1.0); CREATININE 1.2 mg/dL (0.55-1.02); Chloride 105 mmol/L (98-107); Glucose 160 mg/dL (74-106); Magnesium 2.1 mg/dL (1.8-2.4); Potassium 3.2 mmol/L (3.5-5.1); Sodium 141 mmol/L (136-145); TSH (W/Ref FT4) 1.52 uIU/mL (0.36-3.74); Total Protein 7.3 g/dL (6.4-8.2); Troponin I < 50 ng/L (< or =60)
[2024-01-29 14:23] LABS: Bilirubin Negative (Negative); Blood Moderate (Negative); Clarity Clear (Clear); Glucose >=1000 mg/dL (Negative); Ketones Negative (Negative); Leukocyte Esterase Negative (Negative); Nitrite Negative (Negative); Specific Gravity >= 1.030 (1.005-1.025); Urobilinogen 0.2 mg/dL (Up to 0.2); pH 5.5 (5-8)
[2024-01-29 14:30] LABS: Epithelial Cells Many HPF (Negative); WBC Negative HPF (0-5)
[2024-01-29 14:31] LABS: Bacteria Few HPF (Negative); C & S Indicated? No; Casts 0-2 Hyaline LPF (Negative); Crystals Negative HPF (Negative); Mucus Trace (Negative)
[2024-01-29] MEDS: Potassium Chloride 20 MEQ TABCR 40 MEQ PO (15:20)
[2024-01-29 15:50] LABS: Troponin I < 50 ng/L (< or =60)
--- NOTE | 2024-01-29 15:54 | W.EDPROG ---
Date of service: 01/29/24 Time of Service: 16:00 Medical Decision Making Handoff report received from melinda Villafana. Sun is a 73-year-old female who presented to the emergency department today for evaluation of dizziness with standing. She reports this is not accompanied by any other symptoms such as fever/chills, body aches, chest pain, nausea/vomiting, diaphoresis. She is able to ambulate, but says that she has dizziness when she stands. She does have a cardiac history, including paroxysmal A-fib and CHF. She found a tick on her neck last night, pulled it off. Symptoms started this morning. I did perform a limited physical exam. Cranial nerves II through XII intact as tested. PERRL, EOMs intact. Mild dizziness with standing. 5 out of 5 muscle strength upper and lower extremities. Sensation grossly intact. Workup so far has been reassuring. EKG significant for T wave flattening that is new. MRI negative. Blood work significant for mild leukocytosis, WBC 11.29. Creatinine slightly elevated at 1.2. Mild hypokalemia, potassium 3.2. Urine significant for specific gravity greater than 1030, concerning for mild dehydration. While in the emergency department 250 cc normal saline bolus, 40 mEq KCl, and meclizine given for dizziness with full resolution of symptoms. She was able to ambulate without any dizziness after receiving the medication. Discussed case with [facility] lineman service or work dispatcher Dr. Armas. Reviewed EKG findings and patient history/presentation. He does not believe this is consistent with Lyme carditis, especially as patient has not had any untreated tick bites recently (she was treated for tick bite earlier in the summer [facility] 10 day course of doxycycline). Overall workup today reassuring. One-time dose of prophylactic doxycycline given in the emergency department today. Advise follow-up with PCP. Reviewed red flags indicate need for return to emergency care. Tick panel pending. Quality:SDOH Health Related Social Needs: Health related social needs risk of homeless, inadequate housing, material hardship, food insecurity, transpo insecurity, personal safety Sign Out Sign Out Data: Sign Out Comment: Patient with tick bite pulled out last night- onset of dizziness with cardiac history. Awaiting repeat trop. MRI brain negative for posteiror stroke other ABN EKG shows new T-wave flattening possible consult Patient symptomatically feels better, if reasonable d/c with 14-21 doxy. Last updated by Jean Hogan PA at 01/29/24 15:25 Discharge Plan Disposition Patient Disposition: Home Discharge Details Clinical Impression: Dizziness, Tick bite Primary Care Provider: [facility]o Whalen ED Provider: Sania Heller Home Meds and New Rx's Prescriptions: New meclizine 12.5 mg tablet 12.5 mg PO TID Qty: 7 0RF Continued venlafaxine 150 mg tablet extended release 24hr 150 mg PO HS zolpidem 5 mg tablet 5 mg PO QHS PRN naloxone [Narcan] 4 mg/actuation spray,non-aerosol 4 mg NS DAILY PRN (Reason: opioid overdose) Qty: 1 1RF amlodipine 5 mg tablet 5 mg PO DAILY Qty: 90 3RF Rx Instructions: Blood pressure atorvastatin 40 mg tablet 40 mg PO DAILY Qty: 90 3RF hydrocodone-acetaminophen 5-325 mg tablet See Rx Instructions PO TID MDD 10mg/24h PRN (Reason: lumbar spinal stenosis) Qty: 56 0RF Rx Instructions: 1PO 1/2 tab in AM, 1 tab midday, 1/2 tab qhs PRN severe spinal stenosis pain hydrocodone-acetaminophen 5-325 mg tablet See Rx Instructions PO .COMPLEX MDD 10mg/24h Qty: 56 0RF Rx Instructions: PO 1/2 tab in AM, 1 tab midday, 1/2 tab qhs PRN severe spinal stenosis pain hydrocodone-acetaminophen 5-325 mg tablet See Rx Instructions PO .COMPLEX MDD 10mg/24h Qty: 56 0RF Rx Instructions: PO 1/2 tab in AM, 1 tab midday, 1/2 tab qhs PRN severe spinal stenosis pain mometasone 0.1 % cream See Rx Instructions .ROUTE .COMPLEX Qty: 45 1RF Dose Instruction: APPLY TOPICALLY SMALL DOT TO EAR CANALS NEEDED FOR ECZEMA Rx Instructions: APPLY TOPICALLY SMALL DOT TO EAR CANALS NEEDED FOR ECZEMA gabapentin 400 mg capsule 400 mg PO BID Qty: 56 11RF Rx Instructions: TAKE 1 CAPSULE BY MOUTH EVERY MORNING AND AT MIDDAY FOR CHRONIC BACK PAIN BACK PAIN Eliquis 5 mg tablet See Rx Instructions .ROUTE .COMPLEX Qty: 60 11RF Dose Instruction: TAKE 1 TABLET BY MOUTH TWICE A DAY Rx Instructions: TAKE 1 TABLET BY MOUTH TWICE A DAY Jardiance 10 mg tablet See Rx Instructions .ROUTE .COMPLEX Qty: 30 2RF Dose Instruction: TAKE 1 TABLET BY MOUTH DAILY Rx Instructions: TAKE 1 TABLET BY MOUTH DAILY metoprolol succinate 25 mg tablet extended release 24 hr See Rx Instructions .ROUTE .COMPLEX Qty: 30 11RF Dose Instruction: TAKE 1 TABLET BY MOUTH DAILY Rx Instructions: TAKE 1 TABLET BY MOUTH DAILY acetaminophen 500 mg tablet 325 mg PO Q6H PRN (Reason: pain) Discharge Instructions Additional Instructions: Please call [facility] internal medicine first thing in the morning to schedule follow-up appointment within the next week or two I encourage you to stay well-hydrated. Use the meclizine as needed for dizziness. Please note that this may make you feel sleepy, so do not operate machinery/drive/climbing ladders while taking this. You were given a one-time dose of doxycycline to prevent Lyme disease. A Lyme test is still pending. Return to emergency care if you develop new chest pain, shortness of breath, worsening dizziness, difficulty walking, or if you are very concerned and need to be rechecked again immediately Referrals: [facility] Whalen CUSTOMER [employer]PPL[employer] CHAIN ANALYST [Primary Care Provider] -
[2024-01-29] MEDS: Meclizine 12.5 MG TAB PO (16:18)
[2024-01-29] MEDS: Doxycycline Hyclate 100 MG CAP 200 MG PO (19:00)
--- NOTE | 2024-01-29 19:22 | NUR.NOTE ---
Referral faxed to АННА Whalen to f/u in 1-2 weeks for dizziness.Nursing Note:
[2024-01-30 10:25] LABS: Lyme Ab w Rflx to Lyme Confirm Negative (Negative)
--- NOTE | 2024-01-31 09:19 | NUR.NOTE ---
Accessed chart to reconcile EKG's in [facility] to the EKG orders in [facility]. Nursing Note:
[2024-01-31 17:28] LABS: Anaplasma phagocytophilum Negative (Negative); B. miyamotoi PCR Negative (Negative); Babesia divergens/MO-1 Negative (Negative); Babesia duncani Negative (Negative); Babesia microti Negative (Negative); Ehrlichia chaffeensis Negative (Negative); Ehrlichia ewingii/canis Negative (Negative); Ehrlichia muris eauclairensis Negative (Negative)
== END 2024-01-29 19:14 | disposition home or self-care (01) ==
PROVIDERS: Physician Assistant; Emergency Provider Nurse Practitioner Family; PCP Nurse Practitioner Adult Health
DX: R42 Dizziness and giddiness (principal); M54.2 Cervicalgia; S10.96XA Insect bite of unspecified part of neck, initial encounter; W57.XXXA Bitten or stung by nonvenomous insect and other nonvenomous arthropods, initial encounter; R94.31 Abnormal electrocardiogram [ECG] [EKG]; I48.91 Unspecified atrial fibrillation; I11.0 Hypertensive heart disease with heart failure; I50.9 Heart failure, unspecified; I25.2 Old myocardial infarction; E78.00 Pure hypercholesterolemia, unspecified
CPT/HCPCS: 00123; 36415; 80053; 87798; 93005; 99285; 70551; 81003; 81015; 83605; 83735; 84443; 84484; 85025; 86618; 93010

== ENCOUNTER 2024-02-04 20:32 | Emergency (ER) | payer MEDICARE, MEDICAID, SELFPAY ==
[2024-02-04] VITALS (25 sets, daily range): BP systolic 97–114; BP diastolic 48–67; PULSE 51–66; RESP 15–25; TEMP 36.8; O2SAT 92–98
--- NOTE | 2024-02-04 20:30 | RT.EKG_ITS ---
APPROVED REPORT Exam: Resting ECG Reason for Exam: sob Patient Location: E HR:59 bpm ECG Measurements Heart Rate 59 AXIS CA 162 P 20 QRSd 99 QRS 31 QT 445 T 61 QTc 441 Conclusion Sinus bradycardia...rate< 60 sinus bradycardia, normal axis, normal itnervals, non ischemic
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
[2024-02-04] MEDS: Normal Saline 1,000 ML 1000 ML IV (20:57)
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
[2024-02-04 21:04] LABS: HCT 46.8 % (36.0-46.0); HGB 15.6 g/dL (11.2-15.7); MCH 30.5 pg (27.0-33.0); MCHC 33.3 % (32.0-36.0); MCV 92 fL (80-95); MPV 8.3 fL (8.0-11.0); Platelet Count 254 10^3/uL (130-400); RBC 5.11 10^6/uL (3.93-5.22); RDW 14.3 % (11.7-14.6); RDW-SD 48.4 fL; WBC 10.92 10^3/uL (4.4-10.8)
[2024-02-04] MEDS: Omnipaque 350 MG/ML 100 ML BTL IJ (21:08)
[2024-02-04] MEDS: Normal Saline Flush 10 ML SYR IVP (21:09)
[2024-02-04] MEDS: Normal Saline - Diluent 50 ML VIAL IJ (21:09)
[2024-02-04 21:17] LABS: PTT Activated 27.4 sec (23.6-32.8); Prothrombin Time 10.4 sec (9.1-11.1)
[2024-02-04 21:25] LABS: Absolute Lymphocyte Count 5.68 10^3/uL (1.2-3.4); Absolute Monocyte Count 0.55 10^3/uL (0.1-0.8); Atypical Lymphocytes % 7 %; Diff Comment Manual Differential; RBC Morphology Normal
[2024-02-04 21:30] LABS: ALT 23 U/L (14-59); AST 14 U/L (15-37); Albumin 3.9 g/dL (3.4-5.0); Alkaline Phosphatase 94 U/L (46-116); BUN 22 mg/dL (7-18); Bilirubin, Total 0.36 mg/dL (0.2-1.0); CREATININE 1.1 mg/dL (0.55-1.02); Calcium 8.6 mg/dL (8.5-10.1); Chloride 106 mmol/L (98-107); Estimated GFR 53.06 (mL/min/1.73m2); Glucose 106 mg/dL (74-106); NT-proBNP 366 pg/mL (<300); Potassium 3.8 mmol/L (3.5-5.1); Sodium 141 mmol/L (136-145); TSH (W/Ref FT4) 1.13 uIU/mL (0.36-3.74); Total Protein 7.2 g/dL (6.4-8.2); Troponin I < 50 ng/L (< or =60)
[2024-02-04 21:31] LABS: ETHANOL BLOOD < 3.0 mg/dL (<10)
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
--- NOTE | 2024-02-05 07:19 | NUR.NOTE ---
Addendum entered by Gómez Vega 02/05/24 08:21: Spoke with Aide Canaels who authorized me to send an authorization form to [facility] so that patient could be transported to residence on [facility]. Original Note: Accessed chart to determine insurance for ride with [facility]. Nursing Note:
== END 2024-02-04 23:36 | disposition home or self-care (01) ==
PROVIDERS: Emergency Provider Emergency Medicine; PCP Nurse Practitioner Adult Health
DX: Z04.1 Encounter for examination and observation following transport accident (principal); I25.2 Old myocardial infarction
CPT/HCPCS: 36416; 74177; 80053; 82962; 93005; 96360; 99285; 70450; 71260; 72125; 80320; 83735; 83880; 84443; 84484; 85025; 85610; 85730; 93010; 99284; J3490

== ENCOUNTER 2024-02-29 10:37 | Outpatient (CLI) | payer MEDICARE, MEDICAID, SELFPAY | END 2024-02-29 10:38 | disposition home or self-care (01) | LOC: CARDOPNVT 10:37 | PROVIDERS: PCP Nurse Practitioner Adult Health; Visit Provider Nurse Practitioner Family | DX: R55 Syncope and collapse (principal) | CPT/HCPCS: 93246 ==

== ENCOUNTER → 2024-03-03 01:09 | Outpatient (CLI) | payer MEDICARE, MEDICAID, SELFPAY ==
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
== END ==
PROVIDERS: PCP Nurse Practitioner Adult Health; Visit Provider Nurse Practitioner Family
DX: R55 Syncope and collapse (principal)
CPT/HCPCS: 93306

== ENCOUNTER 2024-03-18 09:54 | Outpatient (CLI) | payer MEDICARE, MEDICAID, SELFPAY ==
--- NOTE | 2024-03-18 12:19 | W.CARDEVENT ---
Date of service: 03/18/24 Time of Service: 12:19 Cardiac Event Recorder Referring Provider:: Tyesha Fletcher Indications:: Syncope Cardiac Event Note: This is a cardiac event monitor. Patient was monitored for 1 day and 13 hours Rhythm throughout was sinus with an average heart rate of 70. Minimum was 52, maximum 101 There were very rare isolated atrial and ventricular ectopic beats There was no atrial fibrillation, no high-grade AV block, no pauses greater than 3 seconds. Unspecified symptoms were reported, not corresponding to any dysrhythmia
== END 2024-03-18 09:55 | disposition home or self-care (01) ==
LOC: CARDOPNVT 09:54
PROVIDERS: PCP Nurse Practitioner Adult Health; Visit Provider Internal Medicine Cardiovascular Disease
DX: R55 Syncope and collapse (principal)
CPT/HCPCS: 93248

== ENCOUNTER 2024-03-25 01:26 | Outpatient (CLI) | payer MEDICARE, MEDICAID, SELFPAY ==
--- NOTE | 2024-03-25 07:30 | DI.MAMMO_ITS ---
Exam(s) MAMMO SCREENING EXAM: MAMMO SCREENING CLINICAL HISTORY: screening,Z12.39 TECHNIQUE: Mammograms were interpreted according to the usual protocol including computer analysis w [employer] CAD system, tomosynthesis and C-view imaging. COMPARISON: 2013 and 2017 FINDINGS: The breasts are composed of mainly fatty density , Breast Density category A. No suspicious masses or suspicious microcalcifications are seen. No skin thickening or abnormal axillary lymph nodes are seen. There has been no significant change from prior exams. IMPRESSION: BI-RADS Category 1, Negative mammogram Yearly screening mammography is recommended. Breast Density - Category A, fatty density. A negative radiographic report should not delay biopsy if a dominant or clinically suspicious mass is present. Up to ten percent of cancers are not identified on mammography. A negative report may reinforce clinical impression. Adenosis and dense breasts may obscure an underlying neoplasm. False positive reports average 6 to 10%. Patient will receive a letter notifying them of these results.
--- NOTE | 2024-03-25 14:15 | DI.CT_ITS ---
Exam(s) CT CHEST WO EXAM: CT CHEST WO CLINICAL HISTORY: interval assessment,F/U PULMONARY NODULES,R91.8. TECHNIQUE: Imaging protocol: Axial computed tomography images were obtained and coronal and sagittal reformatted images were created and reviewed. COMPARISON: CT CT CHEST/ABD/PEL W from 02/04/2024 FINDINGS: Tracheobronchial tree: Patent where visualized. No bronchiectasis is present. Pulmonary parenchyma: Atelectatic changes are seen in the lung bases. There is unchanged scarring se en in the left lingula. Mild atelectatic changes are also seen in the right middle lobe. There is a gain seen a 2-3 mm nodule in the posterior aspect of the right lower lobe (series 3, image 182).. Mediastinum and [place]: No dominant adenopathy or fluid collection. The esophagus is unremarkable. Thyroid gland: Unremarkable. Pleura: No effusion or pneumothorax. Heart: The heart is not dilated. No coronary artery calcifications are seen. No pericardial effusion. Aorta: Thoracic aorta non-dilated. Atherosclerotic calcification is present. Upper abdomen: Unremarkable. Lymph nodes: Within normal limits. Soft tissues: Unremarkable. Bones:Within normal limits for the patient's age. IMPRESSION: 1. Stable right lower lobe pulmonary nodule. No new pulmonary nodules. 2. Atelectasis seen in the lung bases. RADIATION DOSE DELIVERED: Total DLP Total DLP DATA REPOSITORY: All CT scans at this facility are submitted to the National Radiology Data Registry (NRDR) Dose Index Registry (DIR) with the [employer] (ACR). RADIATION OPTIMIZATION: All CT scans at this facility use at least one of these dose optimization te chniques: automated exposure control; mA and/or kV adjustment per patient size (includes targeted exa ms where dose is matched to clinical indication); or iterative reconstruction.
== END 2024-03-25 01:46 ==
LOC: DI 01:26
PROVIDERS: PCP Nurse Practitioner Adult Health; Visit Provider Nurse Practitioner Adult Health
DX: R91.8 Other nonspecific abnormal finding of lung field (principal); Z12.31 Encounter for screening mammogram for malignant neoplasm of breast
CPT/HCPCS: 71250; 77063; 77067

== ENCOUNTER 2024-03-30 20:11 | Emergency (ER) | payer MEDICARE, MEDICAID, SELFPAY ==
[2024-03-30] VITALS (34 sets, daily range): BP systolic 105–131; BP diastolic 55–87; PULSE 52–69; RESP 14–26; TEMP 36.2; O2SAT 92–98
--- NOTE | 2024-03-30 20:00 | RT.EKG_ITS ---
APPROVED REPORT Exam: Resting ECG Reason for Exam: difficulty breathing Patient Location: E HR:66 bpm ECG Measurements Heart Rate 66 AXIS AK 136 P 27 QRSd 89 QRS 55 QT 411 T 77 QTc 431 Conclusion Sinus rhythm...normal P axis, V-rate 60- 99
--- NOTE | 2024-03-30 20:15 | DI.RAD_ITS ---
Exam(s) XR CHEST 2V PA LATERAL EXAM: XR CHEST 2V PA LATERAL CLINICAL HISTORY: cough, SOB, dizzy, CP. TECHNIQUE: 2D digital imaging was performed. COMPARISON: CR XR CHEST 2V PA LATERAL from 11/09/2022 CR,XR XR PORTABLE CHEST AP from 01/06/2024 FINDINGS: 2 views: Heart size is normal. The mediastinum is not widened. Hyperinflation. Mild increased markings noted in the lingular segment of the left lung adjacent to t he heart border. While previously evident on 01/06/2024. Right lung clear. No pleural effusions. No pulmonary edema. IMPRESSION: Mild increased markings in the lingular segment of the left lung and, adjacent to the left heart bord er.Possible developing infiltrate at this location. There are no pleural effusions DATA REPOSITORY: RADIATION DOSE DELIVERED:
[2024-03-30 20:28] LABS: Abs Immature Grans 0.02 10^3/uL (0.0-0.06); HCT 46.4 % (36.0-46.0); HGB 14.9 g/dL (11.2-15.7); MCH 30.3 pg (27.0-33.0); MCHC 32.1 % (32.0-36.0); MCV 95 fL (80-95); MPV 8.6 fL (8.0-11.0); Platelet Count 283 10^3/uL (130-400); RBC 4.91 10^6/uL (3.93-5.22); RDW 13.9 % (11.7-14.6); RDW-SD 49.2 fL; WBC 13.33 10^3/uL (4.4-10.8)
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
[2024-03-30 20:45] LABS: Absolute Eosinophil Count 0.27 10^3/uL (0.0-0.7); Absolute Lymphocyte Count 7.33 10^3/uL (1.2-3.4); Absolute Monocyte Count 0.93 10^3/uL (0.1-0.8); Atypical Lymphocytes % 2 %; Diff Comment Manual Differential; RBC Morphology Normal
[2024-03-30 20:47] LABS: ALT 24 U/L (14-59); AST 19 U/L (15-37); Albumin 3.6 g/dL (3.4-5.0); Alkaline Phosphatase 93 U/L (46-116); Anion Gap 8.3 mmol/L (3-11); BUN 16 mg/dL (7-18); Bilirubin, Total 0.34 mg/dL (0.2-1.0); CO2 26.7 mmol/L (21.0-32.0); CREATININE 1.1 mg/dL (0.55-1.02); Chloride 105 mmol/L (98-107); Estimated GFR 53.06 (mL/min/1.73m2); Glucose 139 mg/dL (74-106); Magnesium 2.3 mg/dL (1.8-2.4); NT-proBNP 207 pg/mL (<300); Potassium 4.2 mmol/L (3.5-5.1); Sodium 140 mmol/L (136-145); Troponin I < 50 ng/L (< or =60)
--- NOTE | 2024-03-30 21:03 | TELEP.MEDREC ---
Date of service: 03/30/24 Time of Service: 21:03 Telepharmacy Home Med Rec Allergies Allergies: Penicillins Allergy (Severe, Verified 03/30/24 20:20) HIVES, CANNOT BREATH benzonatate Allergy (Intermediate, Verified 03/30/24 20:20) itchy hives head to toe,vomiting NSAIDS (Non-Steroidal Anti-Inflamma Adverse Reaction (Severe, Verified 03/30/24 20:20) GI DISTRESS methadone Adverse Reaction (Unknown, Verified 03/30/24 20:20) SEDATION ramelteon (From Rozerem) Adverse Reaction (Unknown, Verified 03/30/24 20:20) activation,worse sleep tramadol Adverse Reaction (Unknown, Verified 03/30/24 20:20) NAUSEA, VOMITING, DIARRHEA amitriptyline Adverse Reaction (Verified 03/30/24 20:20) insomnia, next day sedation cyproheptadine Adverse Reaction (Verified 03/30/24 20:20) Nightmares quetiapine (From Seroquel) Adverse Reaction (Verified 03/30/24 20:20) insomnia, poor efficacy Fresh Fruits Allergy (Severe, Uncoded 03/30/24 20:20) Swelling/Edema Interview Person Interviewed: Updated medication list with information provided by patient. Quality Quality of Interview/Accuracy of Medication List: Good Sources Sources used to compile medication list: [employer] Medication List Changes made to Home Medication List: ADDITIONS: Lorazepam 0.5 mg po tid prn (no recent fill history in [employer] data) DELETIONS: Meclizine CHANGES: Hydrocodone/APAP 5/325mg 1/2 tab po AM, 1/2 tab po midday and 1 tab HS Toprol ER 25mg po daily (was 12.5mg daily) Tylenol 650mg po AM and noon and 325mg po HS (was prn) Gabapentin 400mg po bid prn (was scheduled) Recommended Changes Attestation: The home medication list is now updated to the best of my knowledge and is ready to be reconciled by the provider. Please contact the TelePharmacy Medication Reconciliation Pharmacist at for any questions.
[2024-03-30 21:18] LABS: COVID-19 PCR Negative (Negative); Influenza A PCR Negative (Negative); Influenza B PCR Negative (Negative); RSV PCR Negative (Negative)
[2024-03-30 21:20] LABS: Source Nasopharynx
[2024-03-30] MEDS: HYDROcodone 5/Acetaminophen 325 TAB PO (22:12)
[2024-03-30] MEDS: Famotidine 20 MG/2 ML VIAL IVP (22:12)
--- NOTE | 2024-03-30 22:19 | DI.VRAD_ITS ---
PROCEDURE INFORMATION: Exam: XR Chest Exam date and time: 03/30/2024 9:05 PM Clinical indication: Cough and shortness of breath and other: Cough, SOB, dizzy, cp TECHNIQUE: Imaging protocol: Radiologic exam of the chest. Views: 2 views. COMPARISON: No relevant prior studies available. FINDINGS: Lungs: The lungs are hyperinflated, consistent with underlying small airways disease. There is perihilar interstitial prominence. There is peribronchial thickening There are perihilar streaky densities present. These findings are most consistent with bronchitis. No evidence of lobar pneumonia. The pulmonary vasculature is normal. Pleural spaces: There is no evidence of pneumothorax. There are no pleural effusions present. Heart/Mediastinum: The cardiac silhouette is within normal limits. The mediastinum is normal. Vasculature: The aorta is tortuous. Bones/joints: The spine, sternum, ribs, and pectoral girdles are normal. Soft tissues: There are no soft tissue masses or calcifications. IMPRESSION: 1. Findings most consistant with bronchitis. 2. No evidence of lobar pneumonia. 3. The lungs are hyperinflated, consistent with underlying small airways disease. Dictated and Authenticated by: Javed Sood MD. Ordering:CANDE Lui MD
[2024-03-30] MEDS: Albuterol/Ipratropium 3 ML UPD VIAL UPD (22:32)
[2024-03-30] MEDS: Albuterol HFA 8 GM 60 PUFF INH IH (23:25)
[2024-03-30 23:43] LABS: Troponin I < 50 ng/L (< or =60)
[2024-03-31] MEDS: Inhaler, Assist Device 1 EACH MC (00:20)
--- NOTE | 2024-03-31 02:43 | NUR.NOTE ---
[facility] authorization form faxed to [facility] to authorize a ride home for patient that arrived at ED via EMS.Nursing Note:
== END 2024-03-31 00:27 | disposition home or self-care (01) ==
PROVIDERS: Emergency Provider Nurse Practitioner Family; PCP Nurse Practitioner Adult Health
DX: R07.9 Chest pain, unspecified (principal); R05.9 Cough, unspecified; I11.0 Hypertensive heart disease with heart failure; I50.9 Heart failure, unspecified; I25.2 Old myocardial infarction; I48.0 Paroxysmal atrial fibrillation; Z79.01 Long term (current) use of anticoagulants; Z59.00 Homelessness unspecified; Z87.891 Personal history of nicotine dependence
CPT/HCPCS: 36415; 80053; 87637; 93005; 94640; 96374; 99285; 71046; 83735; 83880; 84484; 85025; 93010; 99284; J7620

== ENCOUNTER → 2024-04-10 14:12 | Outpatient (BNVA) | payer MEDICARE, MEDICAID, SELFPAY | PROVIDERS: PCP Nurse Practitioner Adult Health; Referring Provider Nurse Practitioner Adult Health; Visit Provider Internal Medicine Cardiovascular Disease | DX: I25.10 Atherosclerotic heart disease of native coronary artery without angina pectoris (principal); I10 Essential (primary) hypertension; I48.0 Paroxysmal atrial fibrillation | CPT/HCPCS: 99213 ==

== ENCOUNTER 2024-04-14 15:17 | Outpatient (REF) | payer MEDICARE, MEDICAID, SELFPAY ==
[2024-04-14 19:25] LABS: *AMPHETAMINES SCREEN URINE Negative (Negative); *BARBITURATES SCREEN URINE Negative (Negative); *BENZODIAZEPINES SCREEN URINE Negative (Negative); Cannabinoids THC Negative (Negative); Cocaine Screen,Urine Negative (Negative); OPIATES URINE SCREEN Positive (Negative); Tricyclic Antidepressants Negative (Negative)
== END 2024-04-14 15:18 | disposition home or self-care (01) ==
LOC: LBN 15:17
PROVIDERS: PCP Nurse Practitioner Adult Health; Visit Provider Nurse Practitioner Adult Health
DX: Z79.891 Long term (current) use of opiate analgesic (principal); Z51.81 Encounter for therapeutic drug level monitoring; M99.83 Other biomechanical lesions of lumbar region
CPT/HCPCS: 80307

== ENCOUNTER 2024-04-26 17:06 | Emergency (ER) | payer MEDICARE, MEDICAID, SELFPAY ==
[2024-04-26 17:22] VITALS: BP 149/83; PULSE 65; TEMP 36.6
--- NOTE | 2024-04-26 17:45 | DI.CT_ITS ---
Exam(s) CT ABDOMEN PELVIS WO EXAM: CT ABDOMEN PELVIS WO CLINICAL HISTORY: right flank pain hx kidney stones. TECHNIQUE: Imaging Protocol: Axial computed tomography images with coronal and sagittal reformatted images were created and reviewed CONTRAST MATERIAL: Intravenous: none Oral: None COMPARISON: CT CT CHEST/ABD/PEL W from 02/04/2024 FINDINGS: VISUALIZED LUNG BASES: There is platelike atelectasis in the lung bases. Slightly more prominent on the right side. There are no pleural effusions. Mild infiltrate is noted in the inferior lingular s egment of the left lung. No pleural effusions... ABDOMEN: There is no ascites. LIVER: There are no obvious focal hepatic lesions evident of this noninfused study. GALLBLADDER/BILIARY: No obvious acute gallbladder pathology. CBD is not dilated. PANCREAS: No evidence of pancreatic mass nor dilatation of the pancreatic duct. SPLEEN: Spleen is not enlarged. No obvious intrasplenic lesions. ADRENALS: There are no significant adrenal masses. KIDNEYS:There are no radiopaque calculi in the kidneys nor within the nondilated ureters nor within t he collapsed urinary bladder. No solid renal masses. No significant renal cysts.. ABDOMINAL AORTA: Abdominal aorta is calcified but not enlarged. Iliac arteries calcified but not and LYMPH NODES: There is no retroperitoneal nor paraaortic adenopathy. ABDOMINAL WALL: No evidence of significant anterior abdominal wall nor inguinal hernia. GI: There is no evidence of bowel obstruction, free air, nor abscess. PELVIS: LYMPH NODES: There is no intrapelvic nor inguinal adenopathy. GI: There is interposition of colon between the liver and the anterior abdominal wall-not previously present on 02/04/2024. However, there is no evidence of obstruction at this level. Appendix appears unremarkable. There is abundant fecal material noted throughout the length of the colon. There are sigmoid diverticuli but no evidence of obvious acute diverticulitis. URINARY BLADDER: No calculi nor obvious masses evident REPRODUCTIVE: Uterus and adnexal regions unremarkable. OSSEOUS: No fractures but there is significant anterolisthesis of L4 upon L5 evident. There appear t o be pars defects at L4 level. There is 1 cm anterior slippage of L4 upon L5 and there is disc space narrowing at this level. L5-S1 level appears unremarkable. IMPRESSION: 1. No evidence of urinary tract calculi nor urinary tract obstruction. 2. There is interposition of the hepatic flexure of the colon between the abdominal wall in the liver . This was not previously present on CT scan of February 04, 2024. This may be related to the fact that the colon is now more fecal filled than previous-probable constipation. There is no evidence of smal l-bowel obstruction. 3. Sigmoid diverticulosis but no evidence of acute diverticulitis. Also no evidence of appendicitis. 4. Anterolisthesis L4 upon L5 again noted. Report called by myself to ER physician 04/26/2024 at 6:55 p.m. RADIATION DOSE DELIVERED: 474.85mGy.cm Total DLP DATA REPOSITORY: All CT scans at this facility are submitted to the National Radiology Data Registry (NRDR) Dose Index Registry (DIR) with the [employer] (ACR). RADIATION OPTIMIZATION: All CT scans at this facility use at least one of these dose optimization te chniques: automated exposure control; mA and/or kV adjustment per patient size (includes targeted exa ms where dose is matched to clinical indication); or iterative reconstruction.
[2024-04-26 17:46] LABS: Bilirubin Negative (Negative); Blood Moderate (Negative); Clarity Clear (Clear); Glucose 500 mg/dL (Negative); Ketones Negative (Negative); Leukocyte Esterase Negative (Negative); Nitrite Negative (Negative); Specific Gravity >= 1.030 (1.005-1.025); Urobilinogen 0.2 mg/dL (Up to 0.2); pH 5.5 (5-8)
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
[2024-04-26 18:07] LABS: Bacteria Rare HPF (Negative); C & S Indicated? No/Sq. Contamination; Casts 0-2 Hyaline LPF (Negative); Crystals Negative HPF (Negative); Epithelial Cells Moderate HPF (Negative); Mucus Trace (Negative); WBC 0-2 HPF (0-5)
[2024-04-26] MEDS: Tamsulosin 0.4 MG CAPCR PO (18:10)
[2024-04-26 18:17] LABS: Abs Immature Grans 0.03 10^3/uL (0.0-0.06); HCT 47.9 % (36.0-46.0); HGB 16.1 g/dL (11.2-15.7); MCH 31.1 pg (27.0-33.0); MCHC 33.6 % (32.0-36.0); MCV 93 fL (80-95); MPV 8.5 fL (8.0-11.0); Platelet Count 271 10^3/uL (130-400); RBC 5.17 10^6/uL (3.93-5.22); RDW 14.1 % (11.7-14.6); RDW-SD 48.1 fL; WBC 12.19 10^3/uL (4.4-10.8)
[2024-04-26 18:30] LABS: Absolute Eosinophil Count 0.24 10^3/uL (0.0-0.7); Absolute Lymphocyte Count 6.95 10^3/uL (1.2-3.4); Absolute Monocyte Count 0.49 10^3/uL (0.1-0.8); Absolute Neutrophil Count 4.51 10^3/uL (1.2-6.7); Diff Comment Manual Differential; RBC Morphology Normal
[2024-04-26 18:48] LABS: ALT 22 U/L (14-59); AST 21 U/L (15-37); Albumin 3.9 g/dL (3.4-5.0); Alkaline Phosphatase 100 U/L (46-116); Anion Gap 12.6 mmol/L (3-11); BUN 13 mg/dL (7-18); Bilirubin, Total 0.36 mg/dL (0.2-1.0); CO2 23.4 mmol/L (21.0-32.0); CREATININE 0.9 mg/dL (0.55-1.02); Calcium 8.8 mg/dL (8.5-10.1); Chloride 107 mmol/L (98-107); Glucose 85 mg/dL (74-106); Potassium 3.8 mmol/L (3.5-5.1); Sodium 143 mmol/L (136-145); Total Protein 7.6 g/dL (6.4-8.2)
== END 2024-04-26 19:22 | disposition home or self-care (01) ==
PROVIDERS: Emergency Provider Emergency Medicine; PCP Nurse Practitioner Adult Health
DX: M54.9 Dorsalgia, unspecified (principal); R30.9 Painful micturition, unspecified; R11.0 Nausea
CPT/HCPCS: 80053; 99284; 74176; 81003; 81015; 85025

== ENCOUNTER 2024-05-21 18:51 | Emergency (ER) | payer MEDICARE, MEDICAID, SELFPAY ==
[2024-05-21] VITALS (130 sets, daily range): BP systolic 89–114; BP diastolic 52–71; PULSE 69–110; RESP 12–31; TEMP 37.1–37.4; O2SAT 91–95
--- NOTE | 2024-05-21 18:45 | RT.EKG_ITS ---
APPROVED REPORT Exam: Resting ECG Reason for Exam: chest pain Patient Location: E HR:89 bpm ECG Measurements Heart Rate 89 AXIS SD 165 P 23 QRSd 91 QRS 14 QT 388 T 74 QTc 473 Conclusion Sinus rhythm 89 normal axis no stemi
--- NOTE | 2024-05-21 19:15 | DI.RAD_ITS ---
Exam(s) XR PORTABLE CHEST AP EXAM: XR PORTABLE CHEST AP CLINICAL HISTORY: chest pain TECHNIQUE: 2D digital imaging was performed of the chest. One image was obtained. An AP view was ob tained. COMPARISON: CR,XR XR PORTABLE CHEST AP from 01/06/2024 CR,XR XR CHEST 2V PA LATERAL from 03/30/2024 FINDINGS: There is decreased inspiration. MEDIASTINUM: Normal. HEART: Normal. PULMONARY VASCULATURE: Normal. LUNGS: Clear. PLEURAL SPACE: No pleural effusion or pneumothorax. BONE:Within normal limits for the patient's age. OTHER FINDINGS:Normal. IMPRESSION: No acute pulmonary findings. DATA REPOSITORY: RADIATION DOSE DELIVERED:
[2024-05-21] MEDS: Aspirin 81 MG CHEW 324 MG CH (19:26)
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
[2024-05-21 19:35] LABS: Abs Immature Grans 0.04 10^3/uL (0.0-0.06); Absolute Basophil Count 0.03 10^3/uL (0.0-0.2); Absolute Eosinophil Count 0.01 10^3/uL (0.0-0.7); Absolute Lymphocyte Count 1.81 10^3/uL (1.2-3.4); Absolute Monocyte Count 0.54 10^3/uL (0.1-0.8); Basophils % 0.3 %; Eosinophils % 0.1 %; HCT 48.1 % (36.0-46.0); HGB 16.2 g/dL (11.2-15.7); Immature Grans % 0.5 %; Lymphocytes % 20.7 %; MCH 30.4 pg (27.0-33.0); MCHC 33.7 % (32.0-36.0); MCV 90 fL (80-95); Monocytes % 6.2 %; Neutrophils % 72.2 %; RBC 5.33 10^6/uL (3.93-5.22); RDW 13.8 % (11.7-14.6); RDW-SD 46.3 fL; WBC 8.73 10^3/uL (4.4-10.8)
[2024-05-21 20:12] LABS: PTT Activated 34.5 sec (23.6-32.8); Prothrombin Time 10.4 sec (9.1-11.1)
[2024-05-21 20:19] LABS: ALT 23 U/L (14-59); AST 18 U/L (15-37); Albumin 3.7 g/dL (3.4-5.0); Alkaline Phosphatase 99 U/L (46-116); Anion Gap 15.8 mmol/L (3-11); BUN 18 mg/dL (7-18); Bilirubin, Total 0.76 mg/dL (0.2-1.0); CO2 19.2 mmol/L (21.0-32.0); CREATININE 1.2 mg/dL (0.55-1.02); Calcium 9.4 mg/dL (8.5-10.1); Chloride 105 mmol/L (98-107); Glucose 123 mg/dL (74-106); Magnesium 1.8 mg/dL (1.8-2.4); NT-proBNP 376 pg/mL (<300); Potassium 3.1 mmol/L (3.5-5.1); Sodium 140 mmol/L (136-145); Total Protein 7.9 g/dL (6.4-8.2); Troponin I 8 ng/L (<or=51)
[2024-05-21] MEDS: Potassium Chloride Liquid 20 MEQ PKT 40 MEQ PO (20:36)
--- NOTE | 2024-05-21 20:37 | DI.VRAD_ITS ---
PROCEDURE INFORMATION: Exam: XR Chest Exam date and time: 05/21/2024 19:43 Age: 73 years old Clinical indication: Other: Chest pain TECHNIQUE: Imaging protocol: Radiologic exam of the chest. Views: 1 view. COMPARISON: CR XR CHEST 2V PA LATERAL 03/30/2024 21:05 FINDINGS: Lungs: No consolidation. Pleural spaces: No pleural effusion. No pneumothorax. Heart/Mediastinum: No cardiomegaly. Vasculature: Tortuous aorta. Bones/joints: No acute fracture. IMPRESSION: Negative portable chest. Dictated and Authenticated by: Carleen Harper MD. Ordering:[facility] Bryanna Almazan MD
[2024-05-21 21:17] LABS: Troponin I 8 ng/L (<or=51)
== END 2024-05-21 22:25 | disposition home or self-care (01) ==
PROVIDERS: Emergency Provider Emergency Medicine; PCP Nurse Practitioner Adult Health
DX: R07.9 Chest pain, unspecified (principal); Z59.812 Housing instability, housed, homelessness in past 12 months; Z59.87 Material hardship due to limited financial resources, not elsewhere classified; Z59.41 Food insecurity; R06.02 Shortness of breath
CPT/HCPCS: 80053; 93005; 99284; 71045; 83735; 83880; 84484; 85025; 85610; 85730; 93010; 99283

== ENCOUNTER 2024-05-25 14:23 | Emergency (ER) | payer MEDICARE, MEDICAID, SELFPAY ==
[2024-05-25] VITALS (13 sets, daily range): BP systolic 101–140; BP diastolic 63–80; PULSE 65–85; RESP 12–25; TEMP 36.3; O2SAT 92–97
--- NOTE | 2024-05-25 14:15 | RT.EKG_ITS ---
APPROVED REPORT Exam: Resting ECG Reason for Exam: chest Patient Location: E HR:82 bpm ECG Measurements Heart Rate 82 AXIS NH 143 P -6 QRSd 96 QRS 34 QT 372 T 95 QTc 436 Conclusion Sinus rhythm...normal P axis, V-rate 60- 99 Sinus rhythm normal axis normal intervals no ischemic changes
--- NOTE | 2024-05-25 14:45 | DI.CT_ITS ---
Exam(s) CT ABDOMEN PELVIS CTA EXAM: CT ABDOMEN PELVIS CTA CLINICAL HISTORY: passing clots per rectum. TECHNIQUE: Imaging Protocol: Axial computed tomography images with coronal and sagittal reformatted images were created and reviewed CONTRAST MATERIAL: Intravenous: Omnipaque 350 Contrast volume:100 ml Oral: None COMPARISON: CT CT ABDOMEN PELVIS WO from 04/26/2024 FINDINGS: ABDOMEN AORTA:There is moderate atherosclerotic involvement of the aorta. There is mild aneurysmal dilatatio n of the infrarenal abdominal aorta with maximum diameter 2 cm. No significant stenosis at the aorti c bifurcation and no aneurysmal dilatation nor dissection of the iliac arteries. The celiac and super ior mesenteric arteries are patent.Inferior mesenteric artery is also patent. Bilateral renal arteri es are patent. There is no intraluminal extravasation of injected IV contrast to suggest acute bleeding point althou gh there is severe diverticulitis evident in the sigmoid colon with abundant marisol sigmoid streaking a t this level and high risk for developing abscess given the appearance. Other diverticuli are seen l ower down the sigmoid which are uncomplicated. There is no ascites. LIVER: There are no focal hepatic lesions nor dilatation of intrahepatic ducts. No evidence of liver abscess nor gas within the portal venous system. GALLBLADDER/BILIARY: No obvious gallbladder pathology. CBD is not dilated. PANCREAS: No evidence of pancreatic mass nor dilatation of the pancreatic duct. SPLEEN: Spleen is not enlarged. There are no intrasplenic lesions. ADRENALS: There are no significant adrenal masses. KIDNEYS: No cysts evident. No calculi nor hydronephrosis. No solid renal masses. ABDOMINAL AORTA: See above LYMPH NODES: There is no retroperitoneal nor para-aortic adenopathy. No obvious mesenteric masses. ABDOMINAL WALL: No evidence of significant anterior abdominal wall hernia. PELVIS: LYMPH NODES: There is no intrapelvic nor inguinal adenopathy. GI: No evidence of appendicitis.Severe sigmoid diverticulitis as described above. URINARY BLADDER: Collapsed. Does not contain gas. REPRODUCTIVE: Uterus and adnexal regions unremarkable. No free fluid in the cul-de-sac. OSSEOUS: No significant osseous lesions. Significant anterolisthesis of L4 upon L5 with 1 cm anterio r slippage of L4 upon L5 and disc space narrowing at this level. This appears to be related to sever e facet arthropathy at this level. IMPRESSION: 1. Severe acute diverticulitis of the sigmoid. Predict high risk for developing abscess. No evidenc e of gas within the portal venous system nor gas within the urinary bladder. No liver abscess eviden t. No evidence of bowel obstruction. 2. Appendix appears unremarkable. 3. Other findings as above. First read by [facility]. RADIATION DOSE DELIVERED: 222.69mGy.cm Total DLP DATA REPOSITORY: All CT scans at this facility are submitted to the National Radiology Data Registry (NRDR) Dose Index Registry (DIR) with the [employer] (ACR). RADIATION OPTIMIZATION: All CT scans at this facility use at least one of these dose optimization te chniques: automated exposure control; mA and/or kV adjustment per patient size (includes targeted exa ms where dose is matched to clinical indication); or iterative reconstruction.
--- NOTE | 2024-05-25 14:45 | DI.RAD_ITS ---
Exam(s) XR CHEST 2V PA LATERAL EXAM: XR CHEST 2V PA LATERAL CLINICAL HISTORY: chest pain. TECHNIQUE: 2D digital imaging was performed. COMPARISON: 05/21/2024 chest x-ray FINDINGS: 2 views: Heart size is normal. The mediastinum is not widened. Lungs are clear. No infiltrates nor pleural effusions. IMPRESSION: No acute pulmonary findings. DATA REPOSITORY: RADIATION DOSE DELIVERED:
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
[2024-05-25 15:35] LABS: BE (Venous) -5 mmol/L (-2-3); HCO3 (Venous) 21 mmol/L (23-28); O2 Sat (Venous) 82 %; TCO2 (Venous) 18 mmol/L (24-29); pCO2 (Venous) 38 mmHg (41-51); pH (Venous) 7.35 (7.31-7.41); pO2 (Venous) 46 mmHg
[2024-05-25 15:48] LABS: Bilirubin Moderate (Negative); Blood Large (Negative); Clarity Sl Cloudy (Clear); Glucose Negative (Negative); Ketones 15 mg/dL (Negative); Leukocyte Esterase Negative (Negative); Nitrite Negative (Negative); Specific Gravity >= 1.030 (1.005-1.025); Urobilinogen 0.2 mg/dL (Up to 0.2); pH 5.5 (5-8)
[2024-05-25 15:55] LABS: Bacteria Moderate HPF (Negative); Crystals Negative HPF (Negative); Epithelial Cells Many HPF (Negative); Mucus Moderate (Negative); WBC 0-2 HPF (0-5)
[2024-05-25 15:56] LABS: C & S Indicated? No; Casts 0-2 Hyaline LPF (Negative)
[2024-05-25 16:08] LABS: ALT 28 U/L (14-59); AST 20 U/L (15-37); Albumin 3.6 g/dL (3.4-5.0); Alkaline Phosphatase 109 U/L (46-116); Anion Gap 13.5 mmol/L (3-11); BUN 18 mg/dL (7-18); Bilirubin, Total 0.54 mg/dL (0.2-1.0); CO2 21.5 mmol/L (21.0-32.0); Calcium 10.2 mg/dL (8.5-10.1); Chloride 105 mmol/L (98-107); Estimated GFR 59.49 (mL/min/1.73m2); Glucose 138 mg/dL (74-106); Lipase 20 U/L (16-77); NT-proBNP 87 pg/mL (<300); Sodium 140 mmol/L (136-145); TSH (W/Ref FT4) 1.33 uIU/mL (0.36-3.74); Total Protein 8.7 g/dL (6.4-8.2); Troponin I 4 ng/L (<or=51)
[2024-05-25 16:11] LABS: PTT Activated 32.1 sec (23.6-32.8); Prothrombin Time 9.9 sec (9.1-11.1)
[2024-05-25] MEDS: Omnipaque 350 MG/ML 100 ML BTL IJ (16:15)
[2024-05-25] MEDS: Normal Saline - Diluent 50 ML VIAL IJ (16:16)
[2024-05-25 16:24] LABS: Abs Immature Grans 0.01 10^3/uL (0.0-0.06); Absolute Basophil Count 0.03 10^3/uL (0.0-0.2); Absolute Eosinophil Count 0.14 10^3/uL (0.0-0.7); Absolute Lymphocyte Count 2.99 10^3/uL (1.2-3.4); Absolute Monocyte Count 0.71 10^3/uL (0.1-0.8); Absolute Neutrophil Count 2.71 10^3/uL (1.2-6.7); Basophils % 0.5 %; Eosinophils % 2.1 %; HCT 44.1 % (36.0-46.0); HGB 15.2 g/dL (11.2-15.7); Immature Grans % 0.2 %; Lymphocytes % 45.4 %; MCH 30.6 pg (27.0-33.0); MCHC 34.5 % (32.0-36.0); MCV 89 fL (80-95); MPV 8.5 fL (8.0-11.0); Monocytes % 10.8 %; Platelet Count 272 10^3/uL (130-400); RBC 4.96 10^6/uL (3.93-5.22); RDW 13.9 % (11.7-14.6); RDW-SD 44.8 fL; WBC 6.59 10^3/uL (4.4-10.8)
[2024-05-25 16:49] LABS: Troponin I < 4 ng/L (<or=51)
--- NOTE | 2024-05-25 17:36 | DI.VRAD_ITS ---
PROCEDURE INFORMATION: Exam: XR Chest Exam date and time: 05/25/2024 3:59 PM Age: 73 years old Clinical indication: Other: Chest pain TECHNIQUE: Imaging protocol: Radiologic exam of the chest. Views: 2 views. COMPARISON: CR XR PORTABLE CHEST AP 05/21/2024 7:43 PM FINDINGS: Lungs: Unremarkable. No consolidation. Pleural spaces: Unremarkable. No pleural effusion. No pneumothorax. Heart/Mediastinum: Unremarkable. No cardiomegaly. Vasculature: Aortic ectasia again noted. Next lines Bones/joints: Unremarkable. IMPRESSION: No evidence for acute abnormality in the chest. Dictated and Authenticated by: Zahida Alexis MD. Ordering:NAS Mederos MD
--- NOTE | 2024-05-25 17:40 | DI.VRAD_ITS ---
PROCEDURE INFORMATION: Exam: CTA Abdomen and Pelvis With Contrast Exam date and time: 05/25/2024 3:49 PM Age: 73 years old Clinical indication: Other: Passing clots per rectum TECHNIQUE: Imaging protocol: Computed tomographic angiography of the abdomen and pelvis with contrast. Exam focused on the arteries. 3D rendering (Not supervised by radiologist): MIP and/or 3D reconstructed images were created by the technologist. Radiation optimization: All CT scans at this facility use at least one of these dose optimization techniques: automated exposure control; mA and/or kV adjustment per patient size (includes targeted exams where dose is matched to clinical indication); or iterative reconstruction. Contrast material: OMNI 350; Contrast volume: 100 ml; Contrast route: IV; COMPARISON: CT ABDOMEN PELVIS WO 04/26/2024 6:25 PM FINDINGS: Lungs: Minimal bibasilar atelectasis. Aorta: No aortic aneurysm. No aortic dissection. Celiac trunk and mesenteric arteries: No occlusion or significant stenosis. Renal arteries: No occlusion or significant stenosis. Right iliac arteries: No occlusion or significant stenosis. Left iliac arteries: No occlusion or significant stenosis. Liver: No mass. Gallbladder and biliary ducts: Unremarkable. No calcified stones. No ductal dilation. Pancreas: Unremarkable. No mass. No ductal dilation. Spleen: Unremarkable. No splenomegaly. Adrenal glands: Unremarkable. No mass. Kidneys and ureters: Unremarkable. No solid mass. No hydronephrosis. Stomach and bowel: There is focal wall thickening involving the sigmoid colon with fairly significant adjacent inflammatory change. This is new since previous study. There is no definite extraluminal air. No drainable collection identified at this time. Appendix: No evidence of appendicitis. Intraperitoneal space: See Stomach and bowel finding. Lymph nodes: Unremarkable. No enlarged lymph nodes. Urinary bladder: Unremarkable. No mass. Reproductive: Unremarkable as visualized. Bones/joints: There is lumbar spondylosis. There is grade 1-2 spondylolisthesis L4-L5. Soft tissues: Unremarkable. IMPRESSION: Fairly severe, acute diverticulitis sigmoid colon, uncomplicated. Dictated and Authenticated by: Zahida Alexis MD. Ordering:NAS Mederos MD
[2024-05-25] MEDS: Ciprofloxacin 500 MG TAB PO (18:11)
[2024-05-25] MEDS: metroNIDAZOLE 500 MG TAB PO (18:11)
--- NOTE | 2024-05-26 13:13 | NUR.NOTE ---
[facility] called stating patient said that she lost her prescriptions. Per Dr. Felipe I gave them to the pharmacy verbally. Nursing Note:
== END 2024-05-25 18:16 | disposition home or self-care (01) ==
PROVIDERS: Emergency Provider Emergency Medicine; PCP Nurse Practitioner Adult Health
DX: K57.32 Diverticulitis of large intestine without perforation or abscess without bleeding (principal); I10 Essential (primary) hypertension; I48.0 Paroxysmal atrial fibrillation; I25.2 Old myocardial infarction; Z79.01 Long term (current) use of anticoagulants; Z59.00 Homelessness unspecified; Z87.891 Personal history of nicotine dependence
CPT/HCPCS: 36415; 80053; 82805; 82962; 83690; 86850; 86900; 86901; 93005; 99285; 71046; 74174; 81003; 81015; 83735; 83880; 84443; 84484; 85025; 85610; 85730; 93010; 99284; J3490

== ENCOUNTER → 2024-06-27 09:27 | Outpatient (BNVA) | payer MEDICARE, MEDICAID, SELFPAY | PROVIDERS: PCP Nurse Practitioner Adult Health; Visit Provider Internal Medicine Cardiovascular Disease | DX: I25.10 Atherosclerotic heart disease of native coronary artery without angina pectoris (principal); I48.0 Paroxysmal atrial fibrillation | CPT/HCPCS: 99213 ==

== ENCOUNTER → 2024-12-26 09:55 | Outpatient (BNVA) | payer MEDICARE, MEDICAID, SELFPAY | PROVIDERS: PCP Nurse Practitioner Adult Health; Referring Provider Nurse Practitioner Adult Health; Visit Provider Internal Medicine Cardiovascular Disease | DX: I48.0 Paroxysmal atrial fibrillation (principal); I25.10 Atherosclerotic heart disease of native coronary artery without angina pectoris; Z79.01 Long term (current) use of anticoagulants | CPT/HCPCS: 99213 ==

== ENCOUNTER 2025-01-09 01:03 | Outpatient (CLI) | payer MEDICARE, MEDICAID, SELFPAY ==
[2025-01-09 13:06] LABS: HCT 47.1 % (36.0-46.0); HGB 15.2 g/dL (11.2-15.7); MCH 29.7 pg (27.0-33.0); MCHC 32.3 % (32.0-36.0); MCV 92 fL (80-95); MPV 8.5 fL (8.0-11.0); Platelet Count 303 10^3/uL (130-400); RBC 5.12 10^6/uL (3.93-5.22); RDW 15.3 % (11.7-14.6); RDW-SD 51.8 fL; WBC 10.99 10^3/uL (4.4-10.8)
[2025-01-09 13:18] LABS: Hemoglobin A1C 5.9 % (<5.7)
[2025-01-09 13:32] LABS: Absolute Eosinophil Count 0.22 10^3/uL (0.0-0.7); Absolute Lymphocyte Count 7.47 10^3/uL (1.2-3.4); Absolute Monocyte Count 0.66 10^3/uL (0.1-0.8); Absolute Neutrophil Count 2.64 10^3/uL (1.2-6.7); Atypical Lymphocytes % 3 %; Diff Comment Manual Differential; RBC Morphology Normal
[2025-01-09 14:06] LABS: ALT 30 U/L (14-59); AST 24 U/L (15-37); Albumin 4.1 g/dL (3.4-5.0); Alkaline Phosphatase 96 U/L (46-116); Anion Gap 9.6 mmol/L (3-11); BUN 29 mg/dL (7-18); Bilirubin, Total 0.3 mg/dL (0.2-1.0); CO2 28.4 mmol/L (21.0-32.0); CREATININE 0.9 mg/dL (0.55-1.02); Calcium 9.7 mg/dL (8.5-10.1); Chloride 106 mmol/L (98-107); Estimated GFR 67.08 (mL/min/1.73m2); Glucose 100 mg/dL (74-106); Lipase 114 U/L (<78); Potassium 4.7 mmol/L (3.5-5.1); Sodium 144 mmol/L (136-145); Total Protein 7.9 g/dL (6.4-8.2)
[2025-01-09 14:23] LABS: Calculated LDL 127 mg/dL (<100); Cholesterol 222 mg/dL (<200); HDL Cholesterol 71 mg/dL (>or=50); Triglyceride 123 mg/dL (<150)
== END 2025-01-09 01:04 | disposition home or self-care (01) ==
PROVIDERS: PCP Nurse Practitioner Adult Health; Referring Provider Nurse Practitioner Adult Health; Visit Provider Nurse Practitioner Adult Health
DX: K85.90 Acute pancreatitis without necrosis or infection, unspecified (principal); R73.01 Impaired fasting glucose; C91.10 Chronic lymphocytic leukemia of B-cell type not having achieved remission
CPT/HCPCS: 36415; 80053; 80061; 83690; 83036; 85025

== ENCOUNTER 2025-01-11 01:35 | Emergency (ER) | payer MEDICARE, MEDICAID, SELFPAY ==
[2025-01-11] VITALS (32 sets, daily range): BP systolic 104–144; BP diastolic 58–96; PULSE 56–79; RESP 13–28; TEMP 36.9; O2SAT 85–96
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
--- NOTE | 2025-01-11 01:30 | RT.EKG_ITS ---
APPROVED REPORT Exam: Resting ECG Reason for Exam: upper abd pain Patient Location: E HR:60 bpm ECG Measurements Heart Rate 60 AXIS WA 153 P 14 QRSd 90 QRS 32 QT 422 T 80 QTc 424 Conclusion Sinus rhythm...normal P axis, V-rate 60- 99 Low voltage, precordial leads...precordial leads <1.0mV There are no significant changes compared to prior EKG performed on 05/25/2024 at 14:28.
[2025-01-11 01:49] LABS: Abs Immature Grans 0.05 10^3/uL (0.0-0.06); HGB 14.1 g/dL (11.2-15.7); MCH 30.5 pg (27.0-33.0); MCHC 33.6 % (32.0-36.0); MCV 91 fL (80-95); MPV 8.6 fL (8.0-11.0); Platelet Count 300 10^3/uL (130-400); RBC 4.63 10^6/uL (3.93-5.22); RDW 14.9 % (11.7-14.6); RDW-SD 49.5 fL; WBC 13.21 10^3/uL (4.4-10.8)
[2025-01-11] MEDS: MORPHine 4 MG/ML SYR (01:54)
[2025-01-11] MEDS: Normal Saline 1,000 ML 1000 ML IV (01:57)
[2025-01-11 02:04] LABS: Absolute Eosinophil Count 0.26 10^3/uL (0.0-0.7)
[2025-01-11 02:07] LABS: Absolute Lymphocyte Count 8.32 10^3/uL (1.2-3.4); Absolute Monocyte Count 0.79 10^3/uL (0.1-0.8); Absolute Neutrophil Count 3.57 10^3/uL (1.2-6.7); Metamyelocytes % 1; Myelocytes % 1
[2025-01-11 02:08] LABS: Diff Comment Manual Differential; RBC Morphology Normal
[2025-01-11 02:14] LABS: ALT 29 U/L (14-59); AST 21 U/L (15-37); Albumin 3.9 g/dL (3.4-5.0); Alkaline Phosphatase 89 U/L (46-116); Anion Gap 12.6 mmol/L (3-11); BUN 24 mg/dL (7-18); Bilirubin, Total 0.3 mg/dL (0.2-1.0); CO2 22.4 mmol/L (21.0-32.0); CREATININE 0.9 mg/dL (0.55-1.02); Calcium 8.8 mg/dL (8.5-10.1); Chloride 106 mmol/L (98-107); Estimated GFR 67.08 (mL/min/1.73m2); Glucose 93 mg/dL (74-106); Lipase 284 U/L (<78); Potassium 3.9 mmol/L (3.5-5.1); Sodium 141 mmol/L (136-145); Total Protein 7.4 g/dL (6.4-8.2); Troponin I 5 ng/L (<or=51)
--- NOTE | 2025-01-11 02:26 | DI.CT_ITS ---
Exam(s) CT ABDOMEN PELVIS W EXAM: CT ABDOMEN PELVIS W CLINICAL HISTORY: upper abd pain/hx of pancreatitis TECHNIQUE: Imaging Protocol: Axial computed tomography images with coronal and sagittal reformatted images were created and reviewed. CONTRAST MATERIAL: Intravenous: Omnipaque 350 Contrast volume:75 mL Oral: No COMPARISON: CT CT ABDOMEN PELVIS CTA from 05/25/2024 FINDINGS: ABDOMEN: Lung Bases: No acute abnormality. Liver: Normal density. There is a tiny hypodensity in the liver. It is too small for further charact erization but likely reflects a small cyst. No follow-up is recommended. No suspicious hepatic lesi ons are present. Portal, Superior Mesenteric, and Splenic Veins: Unremarkable. Gallbladder and Biliary Tract: No radiodense calculus or dilation. Pancreas: Normal density, no abnormal calcifications or inflammatory process. Spleen: Normal. Adrenals: No masses seen. Kidneys: Normal size, contour and axis. No radiodense stones or obstructive uropathy. There is a tiny hypodensity in the inferior pole of the left kidney. It is too small for further characterization, but likely reflects a small cyst. No follow-up is recommended. Abdominal Aorta: Abdominal portion non-dilated. Atherosclerotic calcification is present. Bowel: There is diverticulosis seen in the colon, but no evidence of acute diverticulitis. There is no evidence of bowel obstruction or bowel wall thickening. Appendix is unremarkable. Peritoneal Cavity: No ascites, collection or mesenteric inflammatory response. No free air. Lymph Nodes: Within normal limits. Bones: Within normal limits for the patient's age. There is grade 1 anterolisthesis of L4 on L5. Soft Tissues: Unremarkable. PELVIS: Bladder: Symmetric distention, no gross wall thickening. Reproductive Organs: Unremarkable as visualized. Lymph Nodes: Within normal limits. Bones: Within normal limits for the patient's age. IMPRESSION: 1. No acute abdominal or pelvic process. 2. Colonic diverticulosis without evidence of acute diverticulitis. 3. The preliminary [facility] report was reviewed. RADIATION DOSE DELIVERED: 567.04mGy.cm Total DLP DATA REPOSITORY: All CT scans at this facility are submitted to the National Radiology Data Registry (NRDR) Dose Index Registry (DIR) with the [employer] (ACR). RADIATION OPTIMIZATION: All CT scans at this facility use at least one of these dose optimization te chniques: automated exposure control; mA and/or kV adjustment per patient size (includes targeted exa ms where dose is matched to clinical indication); or iterative reconstruction.
[2025-01-11] MEDS: Normal Saline - Diluent 50 ML VIAL IJ (02:28)
[2025-01-11] MEDS: Omnipaque 350 MG/ML 100 ML BTL 75 ML IJ (02:29)
--- NOTE | 2025-01-11 02:44 | DI.[facility]_ITS ---
PROCEDURE INFORMATION: Exam: CT Abdomen And Pelvis With Contrast Exam date and time: 01/11/2025 2:07 AM Age: 74 years old Clinical indication: Other: Upper abd pain/hx of pancreatitis TECHNIQUE: Imaging protocol: Computed tomography of the abdomen and pelvis with contrast. Contrast material: OMNIPAQUE 350; Contrast volume: 75 ml; Contrast route: INTRAVENOUS (IV); COMPARISON: CT ABDOMEN PELVIS CTA 05/25/2024 3:49 PM FINDINGS: Liver: Normal. No mass. Gallbladder and biliary ducts: Normal. No calcified stones. No ductal dilation. Pancreas: Unremarkable. Spleen: Normal. Adrenal glands: Normal. No mass. Kidneys and ureters: Normal. No hydronephrosis. Stomach and bowel: Colonic diverticulosis. No diverticulitis. Incidental mobile cecum. No bowel wall thickening or intestinal obstruction. Mild gaseous distention of the nondependent portions of the bowel may contribute to patient discomfort but is not pathologic. Appendix: Normal appendix. Intraperitoneal space: Unremarkable. No pneumoperitoneum. No abscess. Vasculature: Unremarkable. Lymph nodes: Unremarkable. Urinary bladder: Unremarkable as visualized. Reproductive: Unremarkable as visualized. Bones/joints: Grade 1 anterolisthesis of L4 on L5. Hyperlordosis of the lumbar spine. Soft tissues: Unremarkable. IMPRESSION: No acute findings. Dictated and Authenticated by: Nilay Seals MD. Orderin Lamont Smiley MD
[2025-01-11] MEDS: Famotidine 20 MG/2 ML VIAL IVP (02:57)
[2025-01-11] MEDS: Pantoprazole 40 MG VIAL IVP (02:57)
--- NOTE | 2025-01-11 06:51 | NUR.NOTE ---
Access chart to print the demographic sheet for [facility]. Faxed to them. Nursing Note:
== END 2025-01-11 04:11 | disposition home or self-care (01) ==
PROVIDERS: Emergency Provider Emergency Medicine; PCP Nurse Practitioner Adult Health
DX: R10.11 Right upper quadrant pain (principal); R74.8 Abnormal levels of other serum enzymes; I48.0 Paroxysmal atrial fibrillation; I25.2 Old myocardial infarction; I10 Essential (primary) hypertension; Z79.01 Long term (current) use of anticoagulants; Z87.891 Personal history of nicotine dependence
CPT/HCPCS: 80053; 83690; 93005; 96361; 96374; 96375; 99285; 74177; 83735; 84484; 85025; 93010; J2270; J2470; J3490

== ENCOUNTER 2025-02-03 15:22 | Emergency (ER) | payer MEDICARE, MEDICAID, SELFPAY ==
[2025-02-03] VITALS (22 sets, daily range): BP systolic 92–116; BP diastolic 54–76; PULSE 60–72; RESP 15–29; TEMP 36.9; O2SAT 92–96
--- NOTE | 2025-02-03 15:15 | RT.EKG_ITS ---
APPROVED REPORT Exam: Resting ECG Reason for Exam: Chest Pain Patient Location: E HR:68 bpm ECG Measurements Heart Rate 68 AXIS NC 162 P 29 QRSd 88 QRS 12 QT 407 T 41 QTc 433 Conclusion Sinus rhythm 68 normal axis no stemi
[2025-02-03 15:44] LABS: HCT 44.3 % (36.0-46.0); HGB 14.8 g/dL (11.2-15.7); MCH 30.0 pg (27.0-33.0); MCHC 33.4 % (32.0-36.0); MCV 90 fL (80-95); MPV 8.7 fL (8.0-11.0); Platelet Count 264 10^3/uL (130-400); RBC 4.94 10^6/uL (3.93-5.22); RDW 14.3 % (11.7-14.6); RDW-SD 47.0 fL; WBC 12.71 10^3/uL (4.4-10.8)
[2025-02-03] MEDS: Famotidine 20 MG/2 ML VIAL 40 MG IVP (15:58)
[2025-02-03] MEDS: Normal Saline 500 ML IV (15:58)
[2025-02-03] MEDS: Normal Saline 50 ML (15:59)
[2025-02-03 16:08] LABS: ALT 32 U/L (14-59); AST 24 U/L (15-37); Albumin 3.9 g/dL (3.4-5.0); Alkaline Phosphatase 99 U/L (46-116); Anion Gap 15.3 mmol/L (3-11); BUN 14 mg/dL (7-18); Bilirubin, Total 0.5 mg/dL (0.2-1.0); CO2 20.7 mmol/L (21.0-32.0); Calcium 9.1 mg/dL (8.5-10.1); Chloride 106 mmol/L (98-107); Estimated GFR 67.08 (mL/min/1.73m2); Glucose 95 mg/dL (74-106); Lipase 381 U/L (<78); NT-proBNP 116 pg/mL (<300); Potassium 4.2 mmol/L (3.5-5.1); Sodium 142 mmol/L (136-145); Total Protein 7.4 g/dL (6.4-8.2); Troponin I 4 ng/L (<or=51)
--- NOTE | 2025-02-03 16:15 | DI.RAD_ITS ---
Exam(s) XR PORTABLE CHEST AP EXAM: XR PORTABLE CHEST AP CLINICAL HISTORY: CHEST PAIN TECHNIQUE: 2D digital imaging was performed. COMPARISON: CR,XR XR CHEST 2V PA LATERAL from 05/25/2024 FINDINGS: LUNGS: Clear. No pleural abnormality seen. HEART: Normal size. AORTA: Tortuous BONES: Unremarkable for age. Soft tissues: Unremarkable. IMPRESSION: No acute findings. DATA REPOSITORY: RADIATION DOSE DELIVERED:
[2025-02-03 16:31] LABS: Immature Grans % 0.0 %; RBC Morphology Normal
[2025-02-03 16:49] LABS: Troponin I 4 ng/L (<or=51)
[2025-02-03] MEDS: Ondansetron O.D.T. 4 MG TABEF, 3 TABS/BTL PO (17:22)
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
== END 2025-02-03 17:25 | disposition home or self-care (01) ==
PROVIDERS: Emergency Provider Emergency Medicine; PCP Nurse Practitioner Adult Health
DX: R07.9 Chest pain, unspecified (principal); R11.0 Nausea; R19.7 Diarrhea, unspecified; R74.8 Abnormal levels of other serum enzymes; Z86.79 Personal history of other diseases of the circulatory system; Z79.01 Long term (current) use of anticoagulants
CPT/HCPCS: 99284 ×2; 96374; 36415; 80053; 83690; 93005; 96361; 71045; 83880; 84484; 85025; 93010

== ENCOUNTER 2025-02-15 11:25 | Emergency (ER) | payer MEDICARE, MEDICAID, SELFPAY ==
[2025-02-15] VITALS (11 sets, daily range): BP systolic 129–156; BP diastolic 66–99; PULSE 69–80; RESP 12–24; TEMP 36.4; O2SAT 91–97
--- NOTE | 2025-02-15 11:15 | RT.EKG_ITS ---
APPROVED REPORT Exam: Resting ECG Reason for Exam: Patient Location: E HR:70 bpm ECG Measurements Heart Rate 70 AXIS IL 155 P 38 QRSd 93 QRS 12 QT 395 T 54 QTc 428 Conclusion Sinus rhythm...normal P axis, V-rate 60- 99 Low voltage, precordial leads...precordial leads <1.0mV Otherwise normal ECG
[2025-02-15 12:05] LABS: Abs Immature Grans 0.02 10^3/uL (0.0-0.06); HCT 47.3 % (36.0-46.0); HGB 15.7 g/dL (11.2-15.7); Immature Grans % 0.2 %; MCH 29.7 pg (27.0-33.0); MCHC 33.2 % (32.0-36.0); MCV 90 fL (80-95); MPV 8.7 fL (8.0-11.0); Platelet Count 400 10^3/uL (130-400); RBC 5.28 10^6/uL (3.93-5.22); RDW 14.4 % (11.7-14.6); RDW-SD 47.1 fL; WBC 11.55 10^3/uL (4.4-10.8)
[2025-02-15 12:24] LABS: ALT 26 U/L (14-59); AST 18 U/L (15-37); Albumin 4.5 g/dL (3.4-5.0); Alkaline Phosphatase 113 U/L (46-116); Anion Gap 14.3 mmol/L (3-11); BUN 11 mg/dL (7-18); Bilirubin, Total 0.6 mg/dL (0.2-1.0); CO2 22.7 mmol/L (21.0-32.0); Calcium 9.7 mg/dL (8.5-10.1); Chloride 103 mmol/L (98-107); Estimated GFR 52.73 (mL/min/1.73m2); Glucose 113 mg/dL (74-106); Magnesium 2.1 mg/dL (1.8-2.4); Potassium 3.6 mmol/L (3.5-5.1); Sodium 140 mmol/L (136-145); Total Protein 8.1 g/dL (6.4-8.2); Troponin I 4 ng/L (<or=51)
[2025-02-15 12:28] LABS: RBC Morphology Normal
[2025-02-15 12:48] LABS: Lipase 109 U/L (<78)
[2025-02-15 13:09] LABS: Glucose Negative (Negative)
[2025-02-15] MEDS: Lactated Ringers 1,000 ML 1000 ML IV (13:16)
[2025-02-15] MEDS: Ondansetron 4 MG/2 ML VIAL IVP (13:16)
[2025-02-15] MEDS: Acetaminophen 325 MG TAB 650 MG PO (13:17)
[2025-02-15 13:18] LABS: Troponin I 5 ng/L (<or=51)
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
[2025-02-15 13:26] LABS: C & S Indicated? No; WBC 0-2 HPF (0-5)
[2025-02-15] MEDS: Ciprofloxacin 500 MG TAB PO (14:13)
[2025-02-15] MEDS: metroNIDAZOLE 500 MG TAB PO (14:13)
--- NOTE | 2025-02-15 14:58 | NUR.NOTE ---
Nursing Note: PT left cane at discharge this RN left a message on PT VM regarding where her cane is going to be stored in the department until she retrieves it
--- NOTE | 2025-02-15 15:08 | NUR.NOTE ---
Nursing Note: daughter picked up rayray @1500 02/15/25
== END 2025-02-15 14:43 | disposition home or self-care (01) ==
PROVIDERS: Emergency Provider Student in an Organized Health Care Education/Training Program; PCP Nurse Practitioner Adult Health
DX: R19.7 Diarrhea, unspecified (principal); R42 Dizziness and giddiness; K57.32 Diverticulitis of large intestine without perforation or abscess without bleeding; R74.8 Abnormal levels of other serum enzymes; I25.10 Atherosclerotic heart disease of native coronary artery without angina pectoris; I25.2 Old myocardial infarction; I10 Essential (primary) hypertension; E78.00 Pure hypercholesterolemia, unspecified; I48.91 Unspecified atrial fibrillation; Z87.891 Personal history of nicotine dependence
CPT/HCPCS: 80053; 83690; 93005; 96361; 96374; 99284; 81003; 81015; 83735; 84484; 85025; 93010; J2405

== ENCOUNTER 2025-04-05 13:20 | Emergency (ER) | payer MEDICARE, MEDICAID, SELFPAY ==
[2025-04-05] VITALS (18 sets, daily range): BP systolic 158–173; BP diastolic 76–140; PULSE 77–94; RESP 17–24; TEMP 36.9; O2SAT 94–99
--- NOTE | 2025-04-05 13:15 | RT.EKG_ITS ---
APPROVED REPORT Exam: Resting ECG Reason for Exam: epigastric pain Patient Location: E HR:88 bpm ECG Measurements Heart Rate 88 AXIS GA 147 P 78 QRSd 86 QRS 34 QT 386 T [id number] QTc 467 Conclusion Sinus rhythm...normal P axis, V-rate 60- 99 No Occlusion ND. Slightly more pronounced ST segment depression V3 and V4 and V5 compared to prior dated earlier this year.
--- NOTE | 2025-04-05 13:30 | DI.CT_ITS ---
Exam(s) CT CHEST/ABD/PEL W EXAM: CT CHEST/ABD/PEL W CLINICAL HISTORY: epigastric pain, eliquis, distension, cll TECHNIQUE: Imaging Protocol: Axial computed tomography images with coronal and sagittal reformatted images were created and reviewed. Lung Computer Aided Detection (CAD) was utilized. CONTRAST MATERIAL: Intravenous: Omnipaque 350 contrast volume:75 mL Oral: No COMPARISON: CT CT CHEST/ABD/PEL W from 02/04/[address] CHEST WO from 03/25/[address] ABDOMEN PELVIS W from 01/11/2025 FINDINGS: CHEST: Tracheobronchial tree: Patent where visualized. No evidence of bronchiectasis. Pulmonary parenchyma: No consolidation or dominant measurable mass. There is dependent atelectasis in the lung bases. There is a stable nodule in the right lower lobe. There no suspicious pulmonary nodules present. Visualized thyroid gland: Unremarkable. Mediastinum and Aziza: No dominant adenopathy or fluid collection. The esophagus is unremarkable. Pleura: No effusion or pneumothorax. Heart: The heart is not dilated. Mild coronary artery calcification is present. No pericardial effusion. Pulmonary arteries: Evaluation of the peripheral pulmonary arteries are suboptimal due to the timing of the bolus. No large central pulmonary embolism is present. Aorta: Thoracic aorta non-dilated. No dissection is present. Atherosclerotic calcification is present. Lymph nodes: Within normal limits. Soft tissues: Unremarkable. Bones:Within normal limits for the patient's age. ABDOMEN: Liver: Normal density. There is a tiny hypodensity in the right lobe of the liver. It is too small for further characterization. There is decreased attenuation of the liver suggesting fatty infiltration. There are no suspicious hepatic masses present. Portal, Superior Mesenteric, and Splenic Veins: Unremarkable. Gallbladder and Biliary Tract: No radiodense calculus or dilation. Pancreas: Normal density, no abnormal calcifications or inflammatory process. Spleen: Normal. Adrenals: No masses seen. Kidneys: Normal size, contour and axis. No radiodense stones or obstructive uropathy. There are no suspicious renal masses. Abdominal Aorta: Abdominal portion non-dilated. Atherosclerotic calcification is present. Bowel: There is diverticulosis of the colon but no evidence of acute diverticulitis. There is no evidence of bowel wall thickening or bowel obstruction. Appendix is unremarkable. Peritoneal Cavity: No ascites, collection or mesenteric inflammatory response. No free air. Lymph Nodes: Within normal limits. Bones: Within normal limits for the patient's age. Soft Tissues: Unremarkable. PELVIS: Bladder: Symmetric distention, no gross wall thickening. Reproductive Organs: Unremarkable as visualized. Lymph Nodes: Within normal limits. Bones: Within normal limits. There is grade 1 anterolisthesis of L4 on L5. IMPRESSION: 1. There is no acute pulmonary process. 2. No acute abdominal or pelvic process. 3. No abdominal or pelvic adenopathy. 4. Colonic diverticulosis, without evidence of acute diverticulitis. RADIATION DOSE DELIVERED: Total DLP DATA REPOSITORY: All CT scans at this facility are submitted to the National Radiology Data Registry (NRDR) Dose Index Registry (DIR) with the [employer] (ACR). RADIATION OPTIMIZATION: All CT scans at this facility use at least one of these dose optimization techniques: automated exposure control; mA and/or kV adjustment per patient size (includes targeted exams where dose is matched to clinical indication); or iterative reconstruction.
[2025-04-05 13:37] LABS: Abs Immature Grans 0.02 10^3/uL (0.0-0.06); HCT 48.5 % (36.0-46.0); HGB 16.1 g/dL (11.2-15.7); Immature Grans % 0.2 %; MCH 29.7 pg (27.0-33.0); MCHC 33.2 % (32.0-36.0); MCV 89 fL (80-95); MPV 8.4 fL (8.0-11.0); Platelet Count 333 10^3/uL (130-400); RBC 5.43 10^6/uL (3.93-5.22); RDW 14.3 % (11.7-14.6); RDW-SD 46.4 fL; WBC 11.23 10^3/uL (4.4-10.8)
[2025-04-05 13:38] LABS: RBC Morphology Normal
[2025-04-05 13:51] LABS: Amylase 79 U/L (25-115)
[2025-04-05] MEDS: MORPHine 4 MG/ML SYR IVP (13:51)
[2025-04-05 14:01] LABS: ALT 27 U/L (14-59); AST 20 U/L (15-37); Albumin 4.5 g/dL (3.4-5.0); Alkaline Phosphatase 99 U/L (46-116); Anion Gap 13.3 mmol/L (3-11); BUN 13 mg/dL (7-18); Bilirubin, Total 1.0 mg/dL (0.2-1.0); CO2 23.7 mmol/L (21.0-32.0); Calcium 9.5 mg/dL (8.5-10.1); Chloride 102 mmol/L (98-107); Estimated GFR 59.12 (mL/min/1.73m2); Glucose 117 mg/dL (74-106); Lipase 45 U/L (<78); Potassium 3.6 mmol/L (3.5-5.1); Sodium 139 mmol/L (136-145); Total Protein 8.2 g/dL (6.4-8.2); Troponin I 7 ng/L (<or=51)
[2025-04-05] MEDS: Omnipaque 350 MG/ML 100 ML BTL IJ (14:09)
[2025-04-05] MEDS: Normal Saline - Diluent 50 ML VIAL IJ (14:09)
[2025-04-05] MEDS: Normal Saline Flush 10 ML SYR IVP (14:09)
[2025-04-05 14:51] LABS: Troponin I 9 ng/L (<or=51)
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
[2025-04-05] MEDS: FAMOTIDINE 20 MG in Normal Saline 100 ML 400 MG IVPB (15:45)
[2025-04-05] MEDS: Mylanta Suspension 30 ML CUP PO (15:45)
== END 2025-04-05 16:29 | disposition home or self-care (01) ==
PROVIDERS: Emergency Provider Physician Assistant; PCP Nurse Practitioner Adult Health
DX: R10.13 Epigastric pain (principal); I10 Essential (primary) hypertension; Z86.79 Personal history of other diseases of the circulatory system; Z79.01 Long term (current) use of anticoagulants
CPT/HCPCS: 99284 ×2; 96374; 36415; 74177; 80053; 83690; 93005; 71260; 82150; 84484; 85025; 93010; J2270; J3490

== ENCOUNTER → 2025-04-10 09:21 | Outpatient (BNVA) | payer MEDICARE, MEDICAID, SELFPAY | PROVIDERS: PCP Nurse Practitioner Adult Health; Referring Provider Nurse Practitioner Adult Health; Visit Provider Surgery | DX: R10.13 Epigastric pain (principal); R10.11 Right upper quadrant pain; I25.10 Atherosclerotic heart disease of native coronary artery without angina pectoris; I48.0 Paroxysmal atrial fibrillation; K62.5 Hemorrhage of anus and rectum; Z87.19 Personal history of other diseases of the digestive system | CPT/HCPCS: 99214 ==

== ENCOUNTER 2025-04-27 07:28 | Outpatient (CLI) | payer MEDICARE, MEDICAID, SELFPAY ==
--- NOTE | 2025-04-27 05:45 | DI.US_ITS ---
Exam(s) US ABDOMEN EXAM: US ABDOMEN CLINICAL HISTORY: RUQ pain,r10.11 TECHNIQUE: Ultrasound abdomen performed using standard protocol. COMPARISON: CT CT CHEST/ABD/PEL W from 04/05/2025 FINDINGS: LIVER: Normal size. Mildly increased echogenicity consistent with mild hepatic steatosis. No focal liver lesions are seen. GALLBLADDER: Gallbladder is contracted. No evidence of cholelithiasis. No evidence of wall thickening. No pericholecystic fluid identified. RODRIGUEZ'S SIGN: Negative. BILIARY SYSTEM: No intrahepatic or extrahepatic biliary ductal dilation. KIDNEYS: Kidneys are symmetric in size. No evidence of renal calculi. No evidence of hydronephrosis. No renal mass or cyst identified. PANCREAS: Normal where visualized. SPLEEN: Not enlarged. ABDOMINAL AORTA AND IVC: Visualized portions normal caliber. ASCITES: None seen. IMPRESSION: The gallbladder is contracted but otherwise unremarkable. Mild hepatic steatosis. DATA REPOSITORY:
== END 2025-04-27 07:48 ==
LOC: DI 07:28
PROVIDERS: PCP Nurse Practitioner Adult Health; Visit Provider Surgery
DX: K76.0 Fatty (change of) liver, not elsewhere classified (principal)
CPT/HCPCS: 76700

== ENCOUNTER 2025-05-25 03:49 | Outpatient (CLI) | payer MEDICARE, MEDICAID, SELFPAY ==
[2025-05-25 14:24] LABS: Calculated LDL 78 mg/dL (<100); Cholesterol 169 mg/dL (<200); HDL Cholesterol 71 mg/dL (>or=50); Triglyceride 102 mg/dL (<150)
== END 2025-05-25 03:50 | disposition home or self-care (01) ==
LOC: LBO 03:50
PROVIDERS: PCP Nurse Practitioner Adult Health; Visit Provider Nurse Practitioner Adult Health
DX: E78.00 Pure hypercholesterolemia, unspecified (principal); I25.10 Atherosclerotic heart disease of native coronary artery without angina pectoris
CPT/HCPCS: 36415; 80061

== ENCOUNTER 2025-05-27 01:14 | Outpatient (CLI) | payer MEDICARE, MEDICAID, SELFPAY ==
--- NOTE | 2025-05-27 06:27 | DI.NM_ITS ---
Exam(s) NM HEPATOBILIARY CCK GRP EXAM: NM HEPATOBILIARY CCK GRP CLINICAL HISTORY: ruq abd pain,h/o pancreatitis,r10.11,r10.13. TECHNIQUE: Injected dose: 5 mCi Tc-99 mebrofenin Initial dynamic images: 60 minutes Post-Gallbladder fillin.2 mcg CCK intravenously over a 30min infusion. Additional images: Delayed images 70 minutes. 30 minute dynamic during CCK administration. COMPARISON: US US ABDOMEN from 04/27/2025 FINDINGS: Normal hepatic transit time. Prompt excretion into the small bowel. Prompt excretion into the gallbladder. Gallbladder ejection fraction: 73 percent IMPRESSION: Normal gallbladder ejection fraction. SNM guidelines: Gallbladder visualization should be present by 3 hours. Delayed [id number] transit beyond 60 min raises the suspicion for partial common bile duct (CBD) obstruction. Gallbladder ejection fraction <35% has a good correlation with acalculous disease (i.e., chronic acalculous cholecystitis, cystic duct syndrome, sphincter of Oddi disease).
[2025-05-27] MEDS: Sincalide 5 MCG VIAL 1.2 MCG IJ (10:19)
[2025-05-27] MEDS: Water,Injection,Sterile 10 ML VIAL IJ (10:20)
== END 2025-05-27 01:34 ==
LOC: DI 01:14
PROVIDERS: PCP Nurse Practitioner Adult Health; Visit Provider Surgery
DX: K76.0 Fatty (change of) liver, not elsewhere classified (principal); R10.11 Right upper quadrant pain; R10.13 Epigastric pain
CPT/HCPCS: 78227; J2805

== ENCOUNTER 2025-06-09 14:23 | Emergency (ER) | payer MEDICARE, MEDICAID, SELFPAY ==
[2025-06-09] VITALS (34 sets, daily range): BP systolic 105–147; BP diastolic 48–85; PULSE 43–81; RESP 14–28; TEMP 36.9; O2SAT 81–98
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
--- NOTE | 2025-06-09 16:00 | RT.EKG_ITS ---
APPROVED REPORT Exam: Resting ECG Reason for Exam: abdominal pain Patient Location: E HR:69 bpm ECG Measurements Heart Rate 69 AXIS DE 161 P 50 QRSd 112 QRS 3 QT 570 T 33 QTc 612 Conclusion Sinus rhythm...normal P axis, V-rate 60- 99 Prolonged QT interval...QTc >500mS NSR at 69. Prolong QT is new compared to previous two EKGs. ST flattening not significantly different.
[2025-06-09 16:17] LABS: BE (Venous) 3 mmol/L (-2-3); HCO3 (Venous) 28 mmol/L (23-28); O2 Sat (Venous) 73 %; TCO2 (Venous) 24 mmol/L (24-29); pCO2 (Venous) 41 mmHg (41-51); pO2 (Venous) 37 mmHg
[2025-06-09 16:18] LABS: HCT 45.1 % (36.0-46.0); HGB 15.2 g/dL (11.2-15.7); MCH 29.1 pg (27.0-33.0); MCHC 33.7 % (32.0-36.0); MCV 86 fL (80-95); MPV 8.4 fL (8.0-11.0); Platelet Count 394 10^3/uL (130-400); RBC 5.23 10^6/uL (3.93-5.22); RDW 14.4 % (11.7-14.6); RDW-SD 45.7 fL; WBC 15.08 10^3/uL (4.4-10.8)
[2025-06-09] MEDS: Prochlorperazine 10 MG/2 ML VIAL IVP (16:24)
[2025-06-09] MEDS: Normal Saline 1,000 ML 1000 ML IV (16:24)
[2025-06-09 16:42] LABS: Abs Immature Grans 0.00 10^3/uL (0.0-0.06); Immature Grans % 0.0 %; RBC Morphology Normal
[2025-06-09 16:48] LABS: ALT 24 U/L (14-59); AST 23 U/L (15-37); Albumin 4.2 g/dL (3.4-5.0); Alkaline Phosphatase 93 U/L (46-116); Anion Gap 12.7 mmol/L (3-11); BUN 14 mg/dL (7-18); Bilirubin, Total 0.5 mg/dL (0.2-1.0); CO2 27.3 mmol/L (21.0-32.0); Calcium 10.1 mg/dL (8.5-10.1); Chloride 101 mmol/L (98-107); Glucose 107 mg/dL (74-106); Lipase 37 U/L (<78); Magnesium 2.1 mg/dL (1.8-2.4); Sodium 141 mmol/L (136-145); Total Protein 7.9 g/dL (6.4-8.2); Troponin I 8 ng/L (<or=51)
[2025-06-09 16:50] LABS: Potassium 2.7 mmol/L (3.5-5.1)
[2025-06-09] MEDS: POTASSIUM CHLORIDE 10 MEQ/100 ML BAG 100 MEQ IV_INF ×2 (17:08→18:44)
[2025-06-09] MEDS: Normal Saline 1,000 ML 125 ML IV (17:09)
[2025-06-09 17:59] LABS: Cannabinoids THC Negative (Negative)
[2025-06-09] MEDS: Potassium Chloride Liquid 20 MEQ PKT 40 MEQ PO (20:08)
== END 2025-06-09 20:14 | disposition home or self-care (01) ==
PROVIDERS: Emergency Provider Emergency Medicine; PCP Nurse Practitioner Adult Health
DX: R11.2 Nausea with vomiting, unspecified (principal); R10.10 Upper abdominal pain, unspecified; E87.6 Hypokalemia
CPT/HCPCS: 36415; 80053; 80307; 82805; 83690; 93005; 96361; 96374; 99284; 83605; 83735; 84484; 85025; 93010; J0780; J3480

== ENCOUNTER → 2025-06-17 11:23 | Outpatient (BNVA) | payer MEDICARE, MEDICAID, SELFPAY | PROVIDERS: PCP Nurse Practitioner Adult Health; Referring Provider Nurse Practitioner Adult Health; Visit Provider Surgery | DX: K85.00 Idiopathic acute pancreatitis without necrosis or infection (principal); R10.10 Upper abdominal pain, unspecified; R10.11 Right upper quadrant pain; R11.2 Nausea with vomiting, unspecified; K62.5 Hemorrhage of anus and rectum | CPT/HCPCS: 99214 ==

== ENCOUNTER 2025-06-24 03:35 | Outpatient (CLI) | payer MEDICARE, MEDICAID, SELFPAY ==
[2025-06-24 12:08] LABS: Abs Immature Grans 0.01 10^3/uL (0.0-0.06); HCT 43.3 % (36.0-46.0); HGB 14.2 g/dL (11.2-15.7); Immature Grans % 0.1 %; MCH 29.8 pg (27.0-33.0); MCHC 32.8 % (32.0-36.0); MCV 91 fL (80-95); MPV 8.4 fL (8.0-11.0); Platelet Count 251 10^3/uL (130-400); RBC 4.77 10^6/uL (3.93-5.22); RDW 15.1 % (11.7-14.6); RDW-SD 50.6 fL; WBC 9.20 10^3/uL (4.4-10.8)
[2025-06-24 12:39] LABS: LDH 211 U/L (120-246)
[2025-06-24 12:40] LABS: ALT 14 U/L (10-49); AST 20 U/L (<34); Albumin 4.5 g/dL (3.4-5.0); Alkaline Phosphatase 86 U/L (46-116); Anion Gap 8.9 mmol/L (3-11); BUN 16 mg/dL (9-23); Bilirubin, Total 0.50 mg/dL (0.2-1.2); CO2 23.1 mmol/L (20.0-31.0); Calcium 8.9 mg/dL (8.3-10.6); Chloride 111 mmol/L (98-107); Glucose 143 mg/dL (74-106); Potassium 4.3 mmol/L (3.5-5.1); Sodium 143 mmol/L (136-145); Total Protein 7.2 g/dL (5.7-8.2)
== END 2025-06-24 03:36 | disposition home or self-care (01) ==
LOC: LBO 03:36
PROVIDERS: PCP Nurse Practitioner Adult Health; Visit Provider Internal Medicine Hematology & Oncology
DX: C91.10 Chronic lymphocytic leukemia of B-cell type not having achieved remission (principal)
CPT/HCPCS: 36415; 80053; 83615; 85025